=== PATIENT | male | born 1955 | race Caucasian/White ===

== ENCOUNTER 2017-06-05 14:51 | Outpatient (RCR) | payer MEDICARE, OTHER, SELFPAY ==
[2017-06-05 15:46] LABS: Hemoglobin 14.3 g/dl (13.0-16.5); Mean Corpuscular Hgb 30.9 pg (27.0-32.0); Mean Corpuscular Volume 90.7 fL (80-94); Mean Platelet Vol. 10.5 fl (6.2-12.0); Platelet Count 288 K/mm3 (150-450); RBC Distribution Width SD 45.7 fl (35.1-43.9); Red Blood Count 4.63 M/mm3 (4.6-6.2); White Blood Count 20.9 K/mm3 (4.4-11.0)
[2017-06-05 15:51] LABS: Scan Indicated on CBC? Y/N NO
[2017-06-05 16:19] LABS: AST(SGOT) 32 U/L (15-37); Alanine Aminotransfer ALT/SGPT 52 U/L (12-78); Albumin, Serum 4.1 g/dL (3.4-5.0); Alkaline Phosphatase 136 U/L (45-117); Anion Gap 12 (5-15); BUN 57 mg/dL (7-18); BUN/Creat Ratio 32.9 RATIO (10-20); Calcium,Total 9.6 mg/dL (8.5-10.1); Chloride 95 mmol/L (98-107); Creatinine, Serum 1.73 mg/dL (0.70-1.30); EST Glomerular Filtration Rate 43 mL/min (>60); Est Glom Filt Rate - Afr Amer 52 mL/min (>60); Globulin 4.3 g/dL (2.2-4.2); Glucose 97 mg/dL (70-110); Magnesium 2.2 mg/dL (1.6-2.6); Phosphorus 4.6 mg/dL (2.5-4.9); Potassium 5.8 mmol/L (3.5-5.1); Protein, Total 8.4 g/dL (6.4-8.2); Sodium Level 128 mmol/L (136-145)
[2017-06-06 09:01] LABS: Ferritin 104 ng/mL (26-388)
== END 2017-06-21 23:59 ==
LOC: HHLAB 14:51
PROVIDERS: Family Provider Family Medicine; PCP Family Medicine
DX: K91.2 Postsurgical malabsorption, not elsewhere classified (principal); E46 Unspecified protein-calorie malnutrition
CPT/HCPCS: 80053; 82728; 83735; 84100; 85027

== ENCOUNTER 2017-06-12 14:10 | Outpatient (RCR) | payer MEDICARE, OTHER, SELFPAY ==
[2017-06-12 14:26] LABS: Hematocrit 40.2 % (40-54); Hemoglobin 12.9 g/dl (13.0-16.5); Mean Corp Hgb Conc 32.1 g/gl (32-36); Mean Corpuscular Volume 93.5 fL (80-94); Mean Platelet Vol. 9.9 fl (6.2-12.0); Platelet Count 253 K/mm3 (150-450); RBC Distribution Width SD 47.3 fl (35.1-43.9); White Blood Count 11.9 K/mm3 (4.4-11.0)
[2017-06-12 14:36] LABS: Scan Indicated on CBC? Y/N NO
[2017-06-12 14:57] LABS: BUN 39 mg/dL (7-18); Creatinine, Serum 1.39 mg/dL (0.70-1.30); Glucose 99 mg/dL (70-110)
[2017-06-12 14:58] LABS: ALB/GLOB Ratio 0.9 RATIO (0.9-2.4); AST(SGOT) 25 U/L (15-37); Alanine Aminotransfer ALT/SGPT 56 U/L (12-78); Albumin, Serum 3.5 g/dL (3.4-5.0); Alkaline Phosphatase 143 U/L (45-117); Anion Gap 9 (5-15); BUN/Creat Ratio 28.1 RATIO (10-20); Calcium,Total 9.4 mg/dL (8.5-10.1); Chloride 99 mmol/L (98-107); EST Glomerular Filtration Rate 55 mL/min (>60); Est Glom Filt Rate - Afr Amer 67 mL/min (>60); Magnesium 2.3 mg/dL (1.6-2.6); Phosphorus 3.4 mg/dL (2.5-4.9); Protein, Total 7.5 g/dL (6.4-8.2); Sodium Level 135 mmol/L (136-145)
== END 2017-06-21 23:59 ==
LOC: HHLAB 14:10
PROVIDERS: Family Provider Family Medicine; PCP Family Medicine
DX: J44.9 Chronic obstructive pulmonary disease, unspecified (principal); J96.11 Chronic respiratory failure with hypoxia; I10 Essential (primary) hypertension
CPT/HCPCS: 80053; 83735; 84100; 85027

== ENCOUNTER → 2017-06-26 09:46 | Outpatient (CLI) | payer MEDICARE, SELFPAY ==
[2017-06-26 10:06] LABS: Hematocrit 40.8 % (40-54); Hemoglobin 13.3 g/dl (13.0-16.5); Mean Corp Hgb Conc 32.6 g/gl (32-36); Mean Corpuscular Hgb 30.2 pg (27.0-32.0); Mean Corpuscular Volume 92.5 fL (80-94); Mean Platelet Vol. 9.6 fl (6.2-12.0); Platelet Count 234 K/mm3 (150-450); RBC Distribution Width CV 13.9 % (11.6-14.6); Red Blood Count 4.41 M/mm3 (4.6-6.2); Scan Indicated on CBC? Y/N NO; White Blood Count 12.2 K/mm3 (4.4-11.0)
[2017-06-26 10:20] LABS: ALB/GLOB Ratio 0.8 RATIO (0.9-2.4); AST(SGOT) 21 U/L (15-37); Alanine Aminotransfer ALT/SGPT 43 U/L (16-61); Albumin, Serum 3.3 g/dL (3.2-5.0); Alkaline Phosphatase 123 U/L (45-117); Anion Gap 9 (5-15); BUN 47 mg/dL (7-18); BUN/Creat Ratio 34.6 RATIO (10-20); Calcium,Total 8.9 mg/dL (8.5-10.1); Chloride 99 mmol/L (98-107); Creatinine, Serum 1.36 mg/dL (0.70-1.30); EST Glomerular Filtration Rate 57 mL/min (>60); Est Glom Filt Rate - Afr Amer 68 mL/min (>60); Globulin 3.9 g/dL (2.2-4.2); Glucose 98 mg/dL (74-106); Magnesium 2.3 mg/dL (1.6-2.6); Phosphorus 3.7 mg/dL (2.5-4.9); Potassium 5.2 mmol/L (3.5-5.1); Protein, Total 7.2 g/dL (6.4-8.2); Sodium Level 133 mmol/L (136-145)
[2017-06-26 10:44] LABS: Cholesterol 205 mg/dL (200); High Density Lipoprotein 51 mg/dL; Triglycerides 260 mg/dL; Very Low Density Lipoprotein 52 mg/dL (5-40)
== END ==
PROVIDERS: Family Provider Family Medicine; PCP Family Medicine; Visit Provider Family Medicine
DX: J96.11 Chronic respiratory failure with hypoxia (principal); J44.9 Chronic obstructive pulmonary disease, unspecified; I10 Essential (primary) hypertension; E78.5 Hyperlipidemia, unspecified
CPT/HCPCS: 36592; 80053; 80061; 83735; 84100; 85027

== ENCOUNTER → 2017-07-03 09:40 | Outpatient (CLI) | payer MEDICARE, SELFPAY ==
[2017-07-03 10:03] LABS: Absolute Lymphocyte Count 2.11 X10^3/ul (0.83-4.51); Absolute Neutrophil Count 7.4 X10^3/uL (2.0-7.7); Basophil# 0.05 X10^3/uL; Basophil% 0.5 % (0-1); Eosinophil# 0.26 X10^3/uL; Eosinophils% 2.4 % (0-5); Hematocrit 41.7 % (40-54); Hemoglobin 13.4 g/dl (13.0-16.5); Lymphocyte # 2.11 X10^3/ul (4.0); Lymphocyte % 19.4 % (19-41); Mean Corp Hgb Conc 32.1 g/gl (32-36); Mean Corpuscular Hgb 30.1 pg (27.0-32.0); Mean Corpuscular Volume 93.7 fL (80-94); Mean Platelet Vol. 9.6 fl (6.2-12.0); Monocyte# 0.97 X10^3/uL; Monocyte% 8.9 % (0-10); Neutrophil # 7.41 X10^3/uL (2.7-7.7); Neutrophil % 68.2 % (47-70); POSITIVE COUNT NO; POSITIVE DIFFERENTIAL NO; POSITIVE MORPHOLOGY NO; Platelet Count 230 K/mm3 (150-450); RBC Distribution Width CV 14.2 % (11.6-14.6); RBC Distribution Width SD 48.8 fl (35.1-43.9); Red Blood Count 4.45 M/mm3 (4.6-6.2); White Blood Count 10.9 K/mm3 (4.4-11.0)
[2017-07-03 10:55] LABS: ALB/GLOB Ratio 0.9 RATIO (0.9-2.4); AST(SGOT) 23 U/L (15-37); Alanine Aminotransfer ALT/SGPT 46 U/L (16-61); Albumin, Serum 3.3 g/dL (3.2-5.0); Alkaline Phosphatase 113 U/L (45-117); Anion Gap 11 (5-15); BUN 33 mg/dL (7-18); BUN/Creat Ratio 28.4 RATIO (10-20); Calcium,Total 9.1 mg/dL (8.5-10.1); Chloride 105 mmol/L (98-107); Creatinine, Serum 1.16 mg/dL (0.70-1.30); EST Glomerular Filtration Rate 68 mL/min (>60); Est Glom Filt Rate - Afr Amer 82 mL/min (>60); Globulin 3.7 g/dL (2.2-4.2); Glucose 95 mg/dL (74-106); Magnesium 2.1 mg/dL (1.6-2.6); Phosphorus 3.7 mg/dL (2.5-4.9); Potassium 4.6 mmol/L (3.5-5.1); Sodium Level 138 mmol/L (136-145)
== END ==
PROVIDERS: Family Provider Family Medicine; PCP Family Medicine
DX: E87.8 Other disorders of electrolyte and fluid balance, not elsewhere classified (principal); E83.39 Other disorders of phosphorus metabolism; E83.40 Disorders of magnesium metabolism, unspecified; R63.3 Feeding difficulties; Z78.9 Other specified health status; Z91.89 Other specified personal risk factors, not elsewhere classified
CPT/HCPCS: 36592; 80053; 83735; 84100; 85025

== ENCOUNTER → 2017-07-10 10:14 | Outpatient (CLI) | payer MEDICARE, SELFPAY | PROVIDERS: Family Provider Family Medicine; PCP Family Medicine | DX: E87.8 Other disorders of electrolyte and fluid balance, not elsewhere classified (principal); Z78.9 Other specified health status; Z91.89 Other specified personal risk factors, not elsewhere classified; E83.39 Other disorders of phosphorus metabolism; E83.40 Disorders of magnesium metabolism, unspecified; R63.3 Feeding difficulties; K76.9 Liver disease, unspecified; T56.894A Toxic effect of other metals, undetermined, initial encounter; D68.4 Acquired coagulation factor deficiency; R79.82 Elevated C-reactive protein (CRP) | CPT/HCPCS: 99211; G0463 ==

== ENCOUNTER → 2017-07-17 10:20 | Outpatient (CLI) | payer MEDICARE, SELFPAY ==
[2017-07-17 11:05] LABS: Absolute Lymphocyte Count 1.89 X10^3/ul (0.83-4.51); Absolute Neutrophil Count 6.8 X10^3/uL (2.0-7.7); Basophil# 0.08 X10^3/uL; Basophil% 0.8 % (0-1); Eosinophil# 0.24 X10^3/uL; Eosinophils% 2.3 % (0-5); Hematocrit 42.6 % (40-54); Hemoglobin 13.9 g/dl (13.0-16.5); Lymphocyte # 1.89 X10^3/ul (4.0); Lymphocyte % 18.3 % (19-41); Mean Corp Hgb Conc 32.6 g/gl (32-36); Mean Corpuscular Hgb 30.9 pg (27.0-32.0); Mean Corpuscular Volume 94.7 fL (80-94); Mean Platelet Vol. 10.3 fl (6.2-12.0); Monocyte# 1.32 X10^3/uL; Monocyte% 12.8 % (0-10); Neutrophil # 6.77 X10^3/uL (2.7-7.7); Neutrophil % 65.3 % (47-70); Platelet Count 239 K/mm3 (150-450); RBC Distribution Width CV 14.1 % (11.6-14.6); RBC Distribution Width SD 47.4 fl (35.1-43.9); White Blood Count 10.4 K/mm3 (4.4-11.0)
[2017-07-17 11:07] LABS: POSITIVE COUNT NO; POSITIVE DIFFERENTIAL NO; POSITIVE MORPHOLOGY NO
[2017-07-17 11:39] LABS: ALB/GLOB Ratio 0.8 RATIO (0.9-2.4); AST(SGOT) 21 U/L (15-37); Alanine Aminotransfer ALT/SGPT 48 U/L (16-61); Albumin, Serum 3.2 g/dL (3.2-5.0); Alkaline Phosphatase 123 U/L (45-117); Anion Gap 8 (5-15); BUN 35 mg/dL (7-18); BUN/Creat Ratio 27.3 RATIO (10-20); Calcium,Total 8.7 mg/dL (8.5-10.1); Chloride 108 mmol/L (98-107); Creatinine, Serum 1.28 mg/dL (0.70-1.30); EST Glomerular Filtration Rate 61 mL/min (>60); Est Glom Filt Rate - Afr Amer 73 mL/min (>60); Globulin 3.8 g/dL (2.2-4.2); Glucose 101 mg/dL (74-106); Magnesium 2.2 mg/dL (1.6-2.6); Phosphorus 3.9 mg/dL (2.5-4.9); Potassium 4.6 mmol/L (3.5-5.1); Sodium Level 141 mmol/L (136-145)
[2017-07-17 11:57] LABS: Rubella IgG > 500.0 IU/mL; Vitamin B12 715 pg/mL (211-911)
[2017-07-20 13:49] LABS: Mumps Antibody,IgG > 300.0 AU/mL (Immune >10.9); Rubeola IgG Ab < 25.0 AU/mL (Immune >29.9); Vitamin B1, Thiamine 288.7 nmol/L (66.5-200.0)
== END ==
PROVIDERS: Family Provider Family Medicine; PCP Family Medicine
DX: J96.11 Chronic respiratory failure with hypoxia (principal); J44.9 Chronic obstructive pulmonary disease, unspecified; I10 Essential (primary) hypertension; E87.8 Other disorders of electrolyte and fluid balance, not elsewhere classified; E83.39 Other disorders of phosphorus metabolism; E83.40 Disorders of magnesium metabolism, unspecified; K76.9 Liver disease, unspecified; T56.894A Toxic effect of other metals, undetermined, initial encounter; D68.4 Acquired coagulation factor deficiency; R63.3 Feeding difficulties; R79.82 Elevated C-reactive protein (CRP); Z78.9 Other specified health status; Z91.89 Other specified personal risk factors, not elsewhere classified
CPT/HCPCS: 36592; 80053; 82306; 82607; 83735; 84100; 84425; 85025; 86735; 86762; 86765

== ENCOUNTER 2017-07-19 09:30 | Outpatient (RCR) | payer MEDICARE, SELFPAY ==
--- NOTE | 2017-07-12 12:53 | PR.DATECOV_ITS ---
Dates of Coverage Times for Dates Of Coverage; All dates of coverage are for physician supervision /medical transport specialist for during the times of 08:00 AM through 4:30 PM. Effective Jan 20, 2013 our hours will be changing to 8:00 to 4:30 on Monday, Monday and Monday. First Date of the Month: 07/12/17 Last Date of the Month: 07/19/17
--- NOTE | 2017-07-12 12:53 | PCM.PR.HP ---
History of Present Illness Arrival date:: 07/12/17 Arrival time:: 12:53 Date of Evaluation: 07/12/17 Referring Physician: Dr. Shahzad Simons Primary Diagnosis: Advanced Stage COPD. History of Present Illness: The liane is a 61 yr old male patient under the care of Dr. Shahzad Simons and Erin Ortiz at the [facility] here at [facility]. The patient has been using a trilogy noninvasive ventilator at and has been doing well with this new system. He states he wears it nightly 4-6 hours. mMRC Breathless Scale: When is the patient short of breath? Y/N Grade: Description of Breathlessness: 0 I only get breathless with strenuous exercise. 1 I get short of breath when hurrying on level ground or walking up a slight hill. 2 On level ground, I walk slower than people of the same age because of breathless, or have to stop for breath when walking at my own pace. 3 I stop for breath after walking 100 yards or after a few minutes on level ground. 4 I am too breathless to leave the house or I am breathless when dressing. Respiratory Problems: Yes: Retain Secretions - Secretions Normal Color:: pale white/clear usually Cough:: Yes AM: Yes Sleep Disorder Evaluation: No prior history of sleep apnea patient is aware of. EPWORTH SLEEPINESS SCALE 0 = NO chance of dozing 2 = MODERATE chance of dozing 1 = SLIGHT chance of dozing 3 = HIGH chance of dozing : SITUATION: CHANCE OF DOZING: Sitting and Reading Watching TV Sitting inactive in a public place (i.e. Movies) As a passenger in a car for an hour without a break Lying down to rest in the afternoon when permitted Sitting and talking to someone Sitting quietly after lunch without alcohol In a car, while stopped for a few minutes in traffic Total Total Equals: 1-6 = Adequate Sleep 7-8 = Average > 9 = Sleep Study/Consult Indicated Past Medical History Past Medical History: Diabetes - Type II controlled; patient states he is not Diabetic and was a result of medication., Hypoxia, - - chronic dysphagia, chronic narcotic dependence, history of total colectomy, Ileostomy, ulcerative colitis, bowel obstruction. Psychiatric History: anxiety Surgical History: - - bowelk obstruction surgery (resolved), H/O hernia repair. Additional Family History: Mother h/o COPD. - Social History Marital Status: Assistive Devices:: none Fall history:: no Other potential problems:: none Employment:: Disabilty Smoking Status: Former smoker Quit Smoking Since: 2014 Packs per day: 1 Years Smoked: 45 - Living Arrangement Patient lives with other person(s) in the home:: AROUND THE CLOCK If assistance is needed at home, what is needed?: none - Current/ Previous Services [facility] Home Health:: No Other Home Health:: No [facility]'s Cardiac Rehab:: No Life (Palliative) Care Services:: No Tobacco Use & Smoking Cessation:: No Pulmonary Rehab:: No Social History - Smoking History Smoking Status: Former smoker - Tobacco dependence in remission Years Smokin Packs Smoked per Day: 1 Hx Smoking Cessation Date: 2014 Hx Tobacco Use: Yes Hx Smoking Exposure: No - Alcohol Use Alcohol Usage: Yes - occasionally - Substance Abuse Hx Substance Use: Yes - marijuana use - Hobbies, Recreation, Social Activities Hobbies: Other - Traveling Recreational Activities: I am able to engage in a few activities Medications & Vaccination Info Home Medications: Ambulatory Orders Albuterol Inhaler [Ventolin Hfa] 2 puff INHALATION Q4H PRN PRN 01/25/17 Cyanocobalamin [Vitamin B12] 1,000 mcg SC Q30D 01/25/17 Ergocalciferol [Vitamin D] 50,000 unit PO MO 01/25/17 Ferrous Sulfate 325 mg PO DAILY@0800 01/25/17 Folic Acid 1 mg PO DAILY@0800 01/25/17 Loperamide [Imodium] 2 mg PO ACHS 01/25/17 Diphenoxylate HCl/Atropine [Diphenoxylate-Atrop 2.5-0.025] 2 ea PO 4X/DAY 04/25/17 Hydrocodone/Acetaminophen [[place] 7.5-325 Tablet] 1 tab PO 4X/DAY PRN 04/25/17 Naproxen 250 mg PO BID PRN 04/25/17 Albuterol Aerosols [Ventolin Aerosols] 2.5 mg INHALATION Q2H PRN PRN #1 box 04/27/17 Guaifenesin [Mucinex] 600 mg PO BID PRN #20 tab 04/27/17 Nebulizer [Lc Plus] 1 ea UD #1 ea 04/27/17 fluticasone 100 mcg-umeclid 62.5 mcg-vilant 25 mcg powd for inhalation 1 inh INHALATION QDAY #60 ea 06/05/17 Number of hospital visits in the last year?: - April 2017 Reason for hospital visits: RESP INF-PNUEM,BRONCHITIS, OTHER RESP PROBLEMS Number of emergency room visits in the last year?: 1 Reason for ER visit, with or without admission: RESP INF-PNEUM,BRONCHITIS, OTHER RESP PROBLEMS Do you see your physician on a regular schedule?: Yes How often?: Just started with Dr. Simons 3 to 6 months, annual Has adequate access & meets healthcare needs?: Yes - Drug Regimen Review Indication of potential clinical significant med issues (drug reactions, ineffective therapy, side effects, interactions, duplicate therapy, omissions, dose errors, or non-compliance)?: No problems found during review Was a physician or the physican designee contacted within one calendar day to resolve clinically significant medication issues, including reconcilitation?: No Review of Systems Constitutional: Denies: Chills, Fever, Weight Change HEENT: Reports: Nasal bleeding - rare, Nasal Congestion. Denies: Head Aches, Sinus Congestion, Sinus Drainage Cardiovascular: Denies: Chest Pain, Palpitations Respiratory: Denies: Cough, Shortness of breath at rest, Sputum production Musculoskeletal: Reports: - - Bad left hip needs replaced but unable to do surgery due to medical condition.. Denies: Joint Pain, Joint Tenderness Skin: Denies: Rash, Wounds Neurological: Reports: Blurred vision, Double vision. Denies: Focal weakness, Numbness, Tingling Psychiatric: Denies: Anxiety, Depression, Homicidal Ideations, Suicidal Ideations Advanced Directives - Advanced Directives Power of Shape Brick Molder: Yes Living Will: Yes Advance Directives Information Provided: No Advance Directives on File: Yes Coping/Social Support/Other - Abuse and Neglect Do you feel safe in your surroundings?:: YES Are there sign/symptoms of abuse?: No Has anyone physically or mentally abused you?: No Has anyone threatened to harm you in any way?: No Been asked to sign a document that you don't understand?: No - Exacerbation History Number of Exacerbations in a year:: 10 - respiratory related in someway Recent exposure to illness?: No Known carrier?: No Antibiotic Taken:: Yes I know I have an infection when:: change is color of mucus, frequency of cough, and congestion in chest. - Nutrition Risk Factor Are you on a special diet?: No Diff. chewing/swallowing:: No Have you had a change in your weight?: No Physical Exam - Vital Signs Temperature: 97.4 F Pulse Rate: 103 Respiratory Rate: 18 Pulse Ox at rest: 95 - room air Blood Pressure: 126/80 Nailbeds:: pink Height: 5 ft 10 in Weight:: 68.946 kg Weight Source: Standing Scale Body Mass Index (BMI): 21.8 - Physical Exam General: Alert, Oriented x3, Cooperative Neck: Supple, No JVD, Negative Carotid Bruits, Negative Hepatojugular Reflux Lungs: Clear to auscultation, Normal air movement, No wheeze Cardiovascular: Regular rate, Regular Rhythm, No murmurs Extremities: No clubbing, No cyanosis, No edema, Capillary Refill Less than 3 Seconds Musculoskeletal: No Tenderness to Palpation of Joints or Extremities Psych/Mental Status: Normal Affect, Appropriate - Pain Is Patient Pain Free?: No Pain Location: chest, other - left hip Pain Level: 10/29 - Hearing/Speech/Vision/Spiritual Cultural/Buddhist Needs that may affect Treatment Plan: No Do you have any Spiritual/Emotional needs of which our Building Certifier Ministry could be of assistance?: No Building Certifier to contact Place of Caodaism?: No Primary Language: Occitan Preferred Language: Occitan Right Hearing Abillity: Normal Visual Difficulty: Near Sighted - Motivation to Participate On a scale of 1 to 10, how prepared are you to commit to attending pulmonary rehabilitation?: 10 What do you see as barriers to successfully being able to complete the program?: the unknown of what I'm getting myself into What do you see as the benefits of succesfully completing the program? In other words, what do you hope to get out of participating in the program?: improved health Are there issues you are dealing with that will interfere with completing the program?: nothing today Do you have a spouse or signficant other, family or friends who will help support you to complete the program?: yes, son and friends Diagnostic Data Review - Lab Results Hematology/Chemistry: N/A - Diagnostic and Imaging Results CXR:: see [facility] EHR - 6 Minute Walk Test 6 Minute Walk Test: See [facility] - Cardiovascular Studies Echocardiogram: See [facility] EHR - Pulmonary Function Test FEV1:: 1.20 FVC:: 3.17 FEV1/FVC%:: 38 Gold Classification: Gold class IV(very severe COPD)with FEV1/FVC <70, FEV1 <30% predicted Functioning ADL/IADL - Functional Capacity ADL/IADL GROOMING: Current ability to tend safely to personal hygiene needs (i.e., washing face/hands, hair care, shaving or make up, teeth or denture care, fingernail care).: Able to groom self unaided, w/ or w/o the use of assistive devices. Current ABILITY TO DRESS UPPER BODY safely (with or w/out dressing aids) including undergarments, pullovers, front-opening shirts & blouses, managing zippers, buttons, & snaps:: Gets clothes out, puts on, and removes from upper body w/o assist. Current ABILITY TO DRESS LOWER BODY safely (with or w/out dressing aids) including undergarments, slacks, socks or nylons, shoes:: Able to obtain, put on, & remove clothing and shoes w/out assistance. Bathing: Current ability to wash entire body safely. EXCLUDES grooming (washing face, washing hands and shampooing hair): Bathes self in shower/tub independently, incl getting in & out TOILET TRANSFERRING: Current ability to get to & from the toilet/BSC safely and transfer on & off toilet/commode.: Gets to & from toilet, transfers independently w/ or w/o a device. TOILETING HYGIENE: Current ability to maintain perineal hygiene safely, adjust clothes and/or incontinence pads before & after using toilet, commode, bedpan, urinal. If managing ostomy, includes cleaning: Manages toileting hygiene & clothing management w/out assist TRANSFERRING: Current ability to move safely from bed to chair, or ability to turn and position self in bed if patient is bedfast.: Able to independently transfer. AMBULATION/LOCOMOTION: Current ability to walk safely, once in a standing position, or use wheelchair, once in a seated position, on a variety of surfaces.: Able to IND walk on even/uneven surface&use stairs with or w/o railing FEEDING or EATING: Current ability to feed self meals and snacks safely. NOTE: This refers only to the process of eating, chewing and swallowing, not preparing the food to be eaten.: Able to independently fee ABILITY TO PLAN AND PREPARE MEALS: (e.g., cereal, sandwich) or reheat delivered meals safely.: IND prepare light meals/reheat delvrd meals/Or can but hasn't done so. ABILITY TO USE TELEPHONE: Current ability to answer the phone safely, including dialing numbers, and effectively using the telephone to communicate.: Able to dial numbers and answer calls appropriately and as desired. - Pt Functioning Prior to Problem Self-Care (e.g.,grooming, dressing, & bathing): INDEPENDENT Ambulation: INDEPENDENT Transfer: INDEPENDENT Household tasks (e.g., light meal prep, laundry, shopping): INDEPENDENT
--- NOTE | 2017-07-12 13:03 | PR.HP_ITS ---
History of Present Illness Arrival date:: 07/12/17 Arrival time:: 12:53 Date of Evaluation: 07/12/17 Referring Physician: Dr. Shahzad Simons Primary Diagnosis: Advanced Stage COPD. History of Present Illness: The liane is a 61 yr old male patient under the care of Dr. Shahzad Simons and Erin Ortiz at the [facility] here at [facility]. The patient has been using a trilogy noninvasive ventilator at and has been doing well with this new system. He states he wears it nightly 4-6 hours. mMRC Breathless Scale: When is the patient short of breath? Y/N Grade: Description of Breathlessness: 0 I only get breathless with strenuous exercise. 1 I get short of breath when hurrying on level ground or walking up a slight hill. 2 On level ground, I walk slower than people of the same age because of breathless, or have to stop for breath when walking at my own pace. 3 I stop for breath after walking 100 yards or after a few minutes on level ground. 4 I am too breathless to leave the house or I am breathless when dressing. Respiratory Problems: Yes: Retain Secretions - Secretions Normal Color:: pale white/clear usually Cough:: Yes AM: Yes Sleep Disorder Evaluation: No prior history of sleep apnea patient is aware of. EPWORTH SLEEPINESS SCALE 0 = NO chance of dozing 2 = MODERATE chance of dozing 1 = SLIGHT chance of dozing 3 = HIGH chance of dozing : SITUATION: CHANCE OF DOZING: Sitting and Reading Watching TV Sitting inactive in a public place (i.e. Movies) As a passenger in a car for an hour without a break Lying down to rest in the afternoon when permitted Sitting and talking to someone Sitting quietly after lunch without alcohol In a car, while stopped for a few minutes in traffic Total Total Equals: 1-6 = Adequate Sleep 7-8 = Average > 9 = Sleep Study/Consult Indicated Past Medical History Past Medical History: Diabetes - Type II controlled; patient states he is not Diabetic and was a result of medication., Hypoxia, - - chronic dysphagia, chronic narcotic dependence, history of total colectomy, Ileostomy, ulcerative colitis, bowel obstruction. Psychiatric History: anxiety Surgical History: - - bowelk obstruction surgery (resolved), H/O hernia repair. Additional Family History: Mother h/o COPD. - Social History Marital Status: Assistive Devices:: none Fall history:: no Other potential problems:: none Employment:: Disabilty Smoking Status: Former smoker Quit Smoking Since: 2014 Packs per day: 1 Years Smoked: 45 - Living Arrangement Patient lives with other person(s) in the home:: AROUND THE CLOCK If assistance is needed at home, what is needed?: none - Current/ Previous Services [facility] Home Health:: No Other Home Health:: No [facility]'s Cardiac Rehab:: No Life (Palliative) Care Services:: No Tobacco Use & Smoking Cessation:: No Pulmonary Rehab:: No Social History - Smoking History Smoking Status: Former smoker - Tobacco dependence in remission Years Smokin Packs Smoked per Day: 1 Hx Smoking Cessation Date: 2014 Hx Tobacco Use: Yes Hx Smoking Exposure: No - Alcohol Use Alcohol Usage: Yes - occasionally - Substance Abuse Hx Substance Use: Yes - marijuana use - Hobbies, Recreation, Social Activities Hobbies: Other - Traveling Recreational Activities: I am able to engage in a few activities Medications & Vaccination Info Home Medications: Ambulatory Orders Albuterol Inhaler [Ventolin Hfa] 2 puff INHALATION Q4H PRN PRN 01/25/17 Cyanocobalamin [Vitamin B12] 1,000 mcg SC Q30D 01/25/17 Ergocalciferol [Vitamin D] 50,000 unit PO MO 01/25/17 Ferrous Sulfate 325 mg PO DAILY@0800 01/25/17 Folic Acid 1 mg PO DAILY@0800 01/25/17 Loperamide [Imodium] 2 mg PO ACHS 01/25/17 Diphenoxylate HCl/Atropine [Diphenoxylate-Atrop 2.5-0.025] 2 ea PO 4X/DAY Hydrocodone/Acetaminophen [[place] 7.5-325 Tablet] 1 tab PO 4X/DAY PRN 04/25/17 Naproxen 250 mg PO BID PRN 04/25/17 Albuterol Aerosols [Ventolin Aerosols] 2.5 mg INHALATION Q2H PRN PRN #1 box 12/05 Guaifenesin [Mucinex] 600 mg PO BID PRN #20 tab 04/27/17 Nebulizer [Lc Plus] 1 ea UD #1 ea 04/27/17 fluticasone 100 mcg-umeclid 62.5 mcg-vilant 25 mcg powd for inhalation 1 inh INHALATION QDAY #60 ea 06/05/17 Number of hospital visits in the last year?: - April 2017 Reason for hospital visits: RESP INF-PNUEM,BRONCHITIS, OTHER RESP PROBLEMS Number of emergency room visits in the last year?: 1 Reason for ER visit, with or without admission: RESP INF-PNEUM,BRONCHITIS, OTHER RESP PROBLEMS Do you see your physician on a regular schedule?: Yes How often?: Just started with Dr. Simons 3 to 6 months, annual Has adequate access & meets healthcare needs?: Yes - Drug Regimen Review Indication of potential clinical significant med issues (drug reactions, ineffective therapy, side effects, interactions, duplicate therapy, omissions, dose errors, or non-compliance)?: No problems found during review Was a physician or the physican designee contacted within one calendar day to resolve clinically significant medication issues, including reconcilitation?: No Review of Systems Constitutional: Denies: Chills, Fever, Weight Change HEENT: Reports: Nasal bleeding - rare, Nasal Congestion. Denies: Head Aches, Sinus Congestion, Sinus Drainage Cardiovascular: Denies: Chest Pain, Palpitations Respiratory: Denies: Cough, Shortness of breath at rest, Sputum production Musculoskeletal: Reports: - - Bad left hip needs replaced but unable to do surgery due to medical condition.. Denies: Joint Pain, Joint Tenderness Skin: Denies: Rash, Wounds Neurological: Reports: Blurred vision, Double vision. Denies: Focal weakness, Numbness, Tingling Psychiatric: Denies: Anxiety, Depression, Homicidal Ideations, Suicidal Ideations Advanced Directives - Advanced Directives Power of Fisheries Biologist: Yes Living Will: Yes Advance Directives Information Provided: No Advance Directives on File: Yes Coping/Social Support/Other - Abuse and Neglect Do you feel safe in your surroundings?:: YES Are there sign/symptoms of abuse?: No Has anyone physically or mentally abused you?: No Has anyone threatened to harm you in any way?: No Been asked to sign a document that you don't understand?: No - Exacerbation History Number of Exacerbations in a year:: 10 - respiratory related in someway Recent exposure to illness?: No Known carrier?: No Antibiotic Taken:: Yes I know I have an infection when:: change is color of mucus, frequency of cough, and congestion in chest. - Nutrition Risk Factor Are you on a special diet?: No Diff. chewing/swallowing:: No Have you had a change in your weight?: No Physical Exam - Vital Signs Temperature: 97.4 F Pulse Rate: 103 Respiratory Rate: 18 Pulse Ox at rest: 95 - room air Blood Pressure: 126/80 Nailbeds:: pink Height: 5 ft 10 in Weight:: 68.946 kg Weight Source: Standing Scale Body Mass Index (BMI): 21.8 - Physical Exam General: Alert, Oriented x3, Cooperative Neck: Supple, No JVD, Negative Carotid Bruits, Negative Hepatojugular Reflux Lungs: Clear to auscultation, Normal air movement, No wheeze Cardiovascular: Regular rate, Regular Rhythm, No murmurs Extremities: No clubbing, No cyanosis, No edema, Capillary Refill Less than 3 Seconds Musculoskeletal: No Tenderness to Palpation of Joints or Extremities Psych/Mental Status: Normal Affect, Appropriate - Pain Is Patient Pain Free?: No Pain Location: chest, other - left hip Pain Level: 10/29 - Hearing/Speech/Vision/Spiritual Cultural/Holiness Needs that may affect Treatment Plan: No Do you have any Spiritual/Emotional needs of which our Chief Digital Media Officer Ministry could be of assistance?: No Chief Digital Media Officer to contact Place of Jewish?: No Primary Language: Albanian Preferred Language: Albanian Right Hearing Abillity: Normal Visual Difficulty: Near Sighted - Motivation to Participate On a scale of 1 to 10, how prepared are you to commit to attending pulmonary rehabilitation?: 10 What do you see as barriers to successfully being able to complete the program? : the unknown of what I'm getting myself into What do you see as the benefits of succesfully completing the program? In other words, what do you hope to get out of participating in the program?: improved health Are there issues you are dealing with that will interfere with completing the program?: nothing today Do you have a spouse or signficant other, family or friends who will help support you to complete the program?: yes, son and friends Diagnostic Data Review - Lab Results Hematology/Chemistry: N/A - Diagnostic and Imaging Results CXR:: see [facility] EHR - 6 Minute Walk Test 6 Minute Walk Test: See [facility] - Cardiovascular Studies Echocardiogram: See [facility] EHR - Pulmonary Function Test FEV1:: 1.20 FVC:: 3.17 FEV1/FVC%:: 38 Gold Classification: Gold class IV(very severe COPD)with FEV1/FVC <70, FEV1 <30 % predicted Functioning ADL/IADL - Functional Capacity ADL/IADL GROOMING: Current ability to tend safely to personal hygiene needs (i.e., washing face/hands, hair care, shaving or make up, teeth or denture care, fingernail care).: Able to groom self unaided, w/ or w/o the use of assistive devices. Current ABILITY TO DRESS UPPER BODY safely (with or w/out dressing aids) including undergarments, pullovers, front-opening shirts & blouses, managing zippers, buttons, & snaps:: Gets clothes out, puts on, and removes from upper body w/o assist. Current ABILITY TO DRESS LOWER BODY safely (with or w/out dressing aids) including undergarments, slacks, socks or nylons, shoes:: Able to obtain, put on , & remove clothing and shoes w/out assistance. Bathing: Current ability to wash entire body safely. EXCLUDES grooming (washing face, washing hands and shampooing hair): Bathes self in shower/tub independently, incl getting in & out TOILET TRANSFERRING: Current ability to get to & from the toilet/BSC safely and transfer on & off toilet/commode.: Gets to & from toilet, transfers independently w/ or w/o a device. TOILETING HYGIENE: Current ability to maintain perineal hygiene safely, adjust clothes and/or incontinence pads before & after using toilet, commode, bedpan, urinal. If managing ostomy, includes cleaning: Manages toileting hygiene & clothing management w/out assist TRANSFERRING: Current ability to move safely from bed to chair, or ability to turn and position self in bed if patient is bedfast.: Able to independently transfer. AMBULATION/LOCOMOTION: Current ability to walk safely, once in a standing position, or use wheelchair, once in a seated position, on a variety of surfaces.: Able to IND walk on even/uneven surface&use stairs with or w/o railing FEEDING or EATING: Current ability to feed self meals and snacks safely. NOTE: This refers only to the process of eating, chewing and swallowing, not preparing the food to be eaten.: Able to independently fee ABILITY TO PLAN AND PREPARE MEALS: (e.g., cereal, sandwich) or reheat delivered meals safely.: IND prepare light meals/reheat delvrd meals/Or can but hasn't done so. ABILITY TO USE TELEPHONE: Current ability to answer the phone safely, including dialing numbers, and effectively using the telephone to communicate.: Able to dial numbers and answer calls appropriately and as desired. - Pt Functioning Prior to Problem Self-Care (e.g.,grooming, dressing, & bathing): INDEPENDENT Ambulation: INDEPENDENT Transfer: INDEPENDENT Household tasks (e.g., light meal prep, laundry, shopping): INDEPENDENT
--- NOTE | 2017-07-12 13:09 | PR.ITP_ITS ---
General Information - General Information Admitting Diagnosis: Acute Advanced Stage COPD Gold Classification:: GOLD 4: Very Severe - PFT FEV1:: 1.20 FVC:: 3.17 FEV1/FVC%:: 38 - Education/Goals Barriers to Learning: Vision Impairment Individual Counseling: Initial Assessment: Dyspnea control techniques at rest, activity, and ADLs, Inhaled and respiratory medications, Exacerbation prevention & management, Safe travel, Advanced directives Patient Goals: Breathe better: Initial Assessment, Increase endurance/stamina: Initial Assessment, Return to recreation/hobby: Initial Assessment, Improve diet and nutrition: Initial Assessment, Symptom management: Initial Assessment Exercise - Initial Assessment - Visit Date of Eval: 07/12/17 - Established ITP initial visit - Problem/Goals Problems: No regular exercise, Knowledge deficit exercise guidelines, Knowledge deficit exercise safety - Exercise Prescription Frequency (x/week): 3 Duration:: 30 MET LEVEL:: 2 HR (bpm):: 118 - 110-118 Max THRR - Plan Plan and Plan to Review:: Benefits of exercise, Core components of exercise, How to measure dyspnea level, How to monitor dyspnea level, Exercise intensity, Exercise safety guideline, Home exercise guidelines, Sandrine: 3-4/11-13 Disease Management - Initial - Problems/Goals-Hypoxemia Hypoxemia Problems:: Hypoxemia - Problems/Goals-Medications Medication Goals: Adherence to prescribed medications, Correct technique/timing & care of MDI, DPI, nebulizer, and spacer. - Problems/Goals-Bronchial Hygiene Bronchial Hygiene Problems:: Ineffective secretion clearance, Respiratory infection Prevention/Management Bronchial Hygiene Goals:: Pt demonstrates effective cough, effective secretion clearance., Pt describes signs and symptoms of infection. - Initial Assessment SpO2:: 97 Does pt report taking home meds as prescribed?: Yes Medications: Yes MDI, Yes NEB, No Spacer Patient Reports:: Non-productive cough, Prod cough with infection - Plans Hypoxemia Plan:: Monitor SpO2 rest & with exercise, Train appropriate O2 use at rest, Train appropriate O2 use with exercise, Train O2 safety & systems Reviewed prescribed medications:: Purpose, Schedule, Side effects, Importance of compliance Instruct correct technique/timing & care:: MDI, DPI, Nebulizer, Return demo use of inhaler Bronchial Hygiene Plan: Controlled cough, Vibratory PEP device, Hydration, Hand hygiene, When to call MD, Signs/symptoms to report:, Influenza/Pneumovax vaccines Psychosocial - Initial Assess - Problems/Goals Problems: Impaired Q.O.L. Psychosocial Goals: Improved Q.O.L. - Psychosocial Test Depression:: Anxiety, Impaired QOL - Plan Instructions given regarding:: Benefits of exercise, Relaxation techniques, Training in coping strategies Stress management: Recommended follow-up with MD for considered of Rx Tobacco - Initial Assessment - Program Goals Tobacco Program Goals: Complete smoking cessation. Attend education classes. Improve Knowledge Test score - Stage of Change Stages of Change:: Action - Learning Barriers Learning Barriers: Vision, Ready to Learn - Tobacco Use Tobacco Use: Non-smoker - Intervention Education Schedule Given:: Yes - Education Gave Education Materials For:: Tobacco Triggers, Pulmonary Disease, Risk Factors , Breathing Techniques, Medical Compliance, Pulmonary A&P, Exacerbation Signs & Symptoms, Stress & Relaxation Nutrition/Wt Mgmt - Initial - Problems/Goals Problems: Underweight Goals: BMI 21-25, Wt Loss 1-2 lbs per week - Weight Management Admit Height:: 5 ft 10 in Admit Weight:: 68.993 kg Admit BMI:: 21.8 - Diabetes Diabetes:: No Insulin: No Do you monitor your blood sugar at home?: No - Intervention Referral to dietitian:: No Referral to Diabetic Clinic:: No Will attend diet classes:: Yes - Plan Nutrition Plan: Yes Nutrition education class:, Yes Medication education class [ Prednisone]: Patient Health Questionnaire Initial Assessment 1. Little interest or pleasure in doing things: Nearly every day 2. Feeling down, depressed, or hopeless: More than half the days 3. Trouble falling or staying asleep, or sleeping too much: More than half the days 4. Feeling tired or having little energy: Several days 5. Poor appetite or overeating: Nearly every day 6. Feeling bad about yourself -- or that you are a failure or have let yourself or your family down: Not at all 7. Trouble concentrating on things, such as reading the newspaper or watching television: Not at all 8. Moving or speaking so slowly that other people could have noticed. Or the opposite - being so fidgety or restless that you have been moving around a lot more than usual: Not at all 9. Thoughts that you would be better off , or of hurting yourself in some way: Not at all How difficult have these problems made it for you to do your work, take care of things at home, or get along with other people?: Somewhat difficult Total Score: 11 COPD Knowledge Test Initial COPD is a lung disease that:: Makes it hard to breathe & gets worse over time In the [place] the term COPD describes 2 main lung conditions:: Emphysema & chronic bronchitis The most common lung irritant that causes COPD is:: Cigarette smoke Common signs and symptoms of COPD include:: An ongoing cough/cough that produces a large amount of mucus, & SOB If you have COPD, what steps can you take?: All of the above Swelling of the ankles is common in COPD:: False Fatigue [tiredness] is common in COPD:: False Wheezing is common in COPD:: True Crushing chest pain is common in COPD:: False Rapid weight loss is common in COPD:: False Breathlessness is a normal response to exercise: True Exercise should be avoided if it makes you short of breath: False All bronchodilators act within 10 minutes: False A spacer device increases the medication to the lungs: True Annual flu vaccine is recommended for pts w/lung disease: True COPD Knowledge Test Total Score:: 14 COPD Assessment Test [CAT] - Questions Never cough = 0, Cough all the time = 5: 1 No phlegm = 0, Chest full of phlegm = 5: 3 No chest tightness = 0, Chest very tight = 5: 1 No breathless w/exertion = 0, Very breathless w/exertion = 5: 5 No limitations w/activity = 0, Very limited w/activity = 5: 5 Confident leaving home = 0, Not at all confident = 5: 4 Sleep soundly = 0, Don't sleep soundly = 5: 3 Lots of energy = 0, No energy at all = 5: 4 Total CAT score:: 26 Self-Efficacy Initial Assessment We would like to know how confident you are in doing certain activities. Please select your confidence level for:: Select your confidence level for the following using the scale 1-10 where 1 is not at all confident and 10 is totally confident. Your score is the average of all 6 responses. Fatigue: How confident are you that you can keep the fatigue caused by your disease from interfering with the things you want to do? Select Number: 3 Physical Discomfort or Pain: How confident are you that you can keep the physical discomfort or pain of your disease from interfering with the things you want to do? Select Number: 2 Emotional Distress: How confident are you that you can keep the emotional distress caused by your disease from interfering with the things you want to do? Select Number: 4 Other Symptoms or Health Problems: How confident are you that you can keep other symptoms or health problems from interfering with the things you want to do? Select Number: 9 Different Tasks and Activities: How confident are you that you can do the different tasks and activities needed to manage your health condition so as to reduce your need to see a doctor? Select Number: 8 Medication: How confident are you that you can do things other than just taking medication to reduce how much your illness affects your everyday life? Select Number: 8 Total Score:: 5 Nutrition Survey - Nutrition Survey Instructions Scoring Instructions: Scoring is as follows: Yes = 1 points. No = 0 point. Patient score that is >/=12 is considered to be at potential nutritional risk and could benefit from a referral to a registered dietitian. - Nutrition Survey Initial Have you lost >10 lbs over the past 2 months without trying?: No Are you following a special diet at home for diabetes, low fat, or low salt?: No Are you interested in meeting with a dietitian for help understanding your diet? : No Do you eat less than 3 meals a day?: Yes Do you eat fatty meats (sung, sausage, ribs, etc), fried foods, desserts, large amounts of salad dressings, margarine, butter, or cheese most days?: No Do you have food allergies? [Enter types in comment field]: No Do you eat in restaurants more than 3 times a week?: Yes Do you season food with salt, seasoning salt, or garlic salt?: Yes Do you used canned, boxed, frozen meals, or soups, seasoning packets?: No Total Score:: 3
[2017-07-12 13:32] VITALS: BP 126/80; PULSE 103; RESP 18; TEMP 36.3; O2SAT 95; BMI 21.8
[2017-07-12 13:36] VITALS: O2SAT 97; BMI 21.8
== END 2017-07-19 23:59 ==
LOC: PR 09:30
PROVIDERS: Family Provider Family Medicine; PCP Family Medicine; Visit Provider Internal Medicine Critical Care Medicine
DX: J44.9 Chronic obstructive pulmonary disease, unspecified (principal)
CPT/HCPCS: 97150; G0424

== ENCOUNTER → 2017-07-24 11:09 | Outpatient (CLI) | payer MEDICARE, SELFPAY | PROVIDERS: Family Provider Family Medicine; PCP Family Medicine | DX: E87.8 Other disorders of electrolyte and fluid balance, not elsewhere classified (principal); Z78.9 Other specified health status; Z91.89 Other specified personal risk factors, not elsewhere classified; E83.39 Other disorders of phosphorus metabolism; E83.40 Disorders of magnesium metabolism, unspecified; R63.3 Feeding difficulties; K76.9 Liver disease, unspecified; T56.894A Toxic effect of other metals, undetermined, initial encounter; D68.4 Acquired coagulation factor deficiency; R79.82 Elevated C-reactive protein (CRP) | CPT/HCPCS: 99211; G0463 ==

== ENCOUNTER → 2017-07-31 11:04 | Outpatient (CLI) | payer MEDICARE, SELFPAY ==
--- NOTE | 2017-07-31 11:36 | RAD_ITS ---
STUDY: X-RAY CHEST REASON FOR EXAM: Male, 61 years old. Increasing shortness of breath. TECHNIQUE: PA and lateral views of the chest. COMPARISON: Comparison is made with prior study dated May 19, 2017. FINDINGS: A right sided central venous catheter is seen. The tip is at the junction of the superior vena cava and right atrium. Hyperinflation. Mild increased linear markings at the left lung base. This is suggestive of atelectasis. Blunting of the left costophrenic angle. Normal size heart. Normal mediastinum and susan. Normal visualized pulmonary arteries. There is atherosclerotic tortuosity of the aortic arch and descending thoracic aorta. There are diffuse degenerative changes of the visualized thoracic spine. Old healed left distal clavicular fracture. There is no demonstrated abnormality of the visualized soft tissue structures of the upper abdomen. RAD/Chest PA and Lateral IMPRESSION: Hyperinflation. Mild increased markings at the left lung base suggestive of atelectasis with blunting of the left costophrenic angle. Electronically Signed: Dimitris Hagen MD at 15:25 EDT Tel [phone], Service support ,
[2017-07-31 11:42] LABS: Absolute Lymphocyte Count 0.88 X10^3/ul (0.83-4.51); Absolute Neutrophil Count 13.1 X10^3/uL (2.0-7.7); Basophil# 0.03 X10^3/uL; Basophil% 0.2 % (0-1); Eosinophil# 0.07 X10^3/uL; Eosinophils% 0.5 % (0-5); Hematocrit 39.6 % (40-54); Hemoglobin 12.6 g/dl (13.0-16.5); Lymphocyte # 0.88 X10^3/ul (4.0); Mean Corp Hgb Conc 31.8 g/gl (32-36); Mean Corpuscular Hgb 30.5 pg (27.0-32.0); Mean Corpuscular Volume 95.9 fL (80-94); Mean Platelet Vol. 10.2 fl (6.2-12.0); Monocyte# 0.62 X10^3/uL; Monocyte% 4.2 % (0-10); Neutrophil # 13.08 X10^3/uL (2.7-7.7); Neutrophil % 88.7 % (47-70); Platelet Count 208 K/mm3 (150-450); RBC Distribution Width SD 47.4 fl (35.1-43.9); Red Blood Count 4.13 M/mm3 (4.6-6.2); White Blood Count 14.7 K/mm3 (4.4-11.0)
[2017-07-31 11:43] LABS: POSITIVE COUNT NO; POSITIVE DIFFERENTIAL NO; POSITIVE MORPHOLOGY NO
[2017-07-31 12:00] LABS: ALB/GLOB Ratio 0.9 RATIO (0.9-2.4); AST(SGOT) 18 U/L (15-37); Alanine Aminotransfer ALT/SGPT 30 U/L (16-61); Albumin, Serum 3.1 g/dL (3.2-5.0); Alkaline Phosphatase 111 U/L (45-117); Anion Gap 7 (5-15); BUN 27 mg/dL (7-18); BUN/Creat Ratio 27.9 RATIO (10-20); Calcium,Total 8.3 mg/dL (8.5-10.1); Chloride 109 mmol/L (98-107); Creatinine, Serum 0.97 mg/dL (0.70-1.30); EST Glomerular Filtration Rate 84 mL/min (>60); Est Glom Filt Rate - Afr Amer 101 mL/min (>60); Globulin 3.4 g/dL (2.2-4.2); Glucose 105 mg/dL (74-106); Potassium 3.9 mmol/L (3.5-5.1); Protein, Total 6.5 g/dL (6.4-8.2); Sodium Level 143 mmol/L (136-145)
== END ==
PROVIDERS: Family Provider Family Medicine; PCP Family Medicine
DX: E87.8 Other disorders of electrolyte and fluid balance, not elsewhere classified (principal); E83.39 Other disorders of phosphorus metabolism; E83.40 Disorders of magnesium metabolism, unspecified; R63.3 Feeding difficulties; Z91.89 Other specified personal risk factors, not elsewhere classified; Z78.9 Other specified health status; R68.89 Other general symptoms and signs; K76.9 Liver disease, unspecified; D68.4 Acquired coagulation factor deficiency; R79.82 Elevated C-reactive protein (CRP); J96.11 Chronic respiratory failure with hypoxia; J44.9 Chronic obstructive pulmonary disease, unspecified; I10 Essential (primary) hypertension
CPT/HCPCS: 36592; 71046; 80053; 83735; 84100; 85025

== ENCOUNTER → 2017-08-07 10:50 | Outpatient (CLI) | payer MEDICARE, SELFPAY | PROVIDERS: Family Provider Family Medicine; PCP Family Medicine | DX: E87.8 Other disorders of electrolyte and fluid balance, not elsewhere classified (principal); Z78.9 Other specified health status; Z91.89 Other specified personal risk factors, not elsewhere classified; E83.39 Other disorders of phosphorus metabolism; E83.40 Disorders of magnesium metabolism, unspecified; R63.3 Feeding difficulties; K76.9 Liver disease, unspecified; T56.894A Toxic effect of other metals, undetermined, initial encounter; D68.4 Acquired coagulation factor deficiency; R79.82 Elevated C-reactive protein (CRP); J44.9 Chronic obstructive pulmonary disease, unspecified | CPT/HCPCS: 97150; 99211; G0424; G0463 ==

== ENCOUNTER → 2017-08-14 10:45 | Outpatient (CLI) | payer MEDICARE, SELFPAY | PROVIDERS: Family Provider Family Medicine; PCP Family Medicine | DX: E87.8 Other disorders of electrolyte and fluid balance, not elsewhere classified (principal); Z78.9 Other specified health status; Z91.89 Other specified personal risk factors, not elsewhere classified; E83.39 Other disorders of phosphorus metabolism; E83.40 Disorders of magnesium metabolism, unspecified; R63.3 Feeding difficulties; K76.9 Liver disease, unspecified; T56.894A Toxic effect of other metals, undetermined, initial encounter; D68.4 Acquired coagulation factor deficiency; R79.82 Elevated C-reactive protein (CRP); J44.9 Chronic obstructive pulmonary disease, unspecified | CPT/HCPCS: 97150; 99211; G0424; G0463 ==

== ENCOUNTER 2017-08-18 09:30 | Outpatient (RCR) | payer MEDICARE, SELFPAY ==
[2017-07-20 01:08] VITALS: PULSE 103; RESP 18; TEMP 36.3; O2SAT 95
--- NOTE | 2017-08-14 13:40 | PR.DATECOV_ITS ---
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 Effective Jan 20, 2013 our hours will be changing to 8:00 to 4:30 on Monday, Monday and Monday. First Date of the Month: 08/20/17 Last Date of the Month: 09/18/17
--- NOTE | 2017-08-14 13:45 | PR.ITP_ITS ---
Exercise - 60-Day Assessment - Current Level Mode:: Treadmill, NuStep, Arm Ergometer Frequency (x/week): 3 Duration:: 30 Aerobic Exercise [30-60 min 3-7x/week]:: Progressing Target heart rate: 118 - 110-118 w/max HR 124 Sandrine MET Level:: 2 - Home Exercise Home Exercise:: No Disease Management - 60-Day - Hypoxemia Reassessment: Demonstrates knowledge of O2 Rx at rest, Demonstrates knowledge of O2 Rx with exercise, Using O2 as prescribed, Has home O2 as prescribed, Uses port O2 as prescribed - Medications Medication list reviewed:: Yes Taking medications 100% of the time:: Met Medication reassessment: Yes Pt demonstrates correct technique timing for MDI, Yes Pt demonstrates correct technique timing for DPI, Yes Pt demonstrates correct technique timing for NEB, Yes Pt demonstrates correct technique timing for spacer - Bronchial Hygiene Bronchial Hygiene Plan: Yes Pt demo correct for device - returned demonstration of acapella device, Yes Pt demo correct for improved hydration - encouraged water intake, Yes Pt demo correct for hand hygiene - uses proper hand hygiene Psychosocial - 60-Day - Assessment Depression reassess: Management of stress: Progressing, Management of depression : Progressing, Practicing interventions: Progressing Tobacco - 60-Day Assessment - Program Goals Tobacco Program Goals: Complete smoking cessation. Attend education classes. Improve Knowledge Test score - Stage of Change Stages of Change:: Action - Learning Barriers Learning Barriers: Participates in education - Family Support Do you have family support?: Yes - Tobacco Use Do you use smokeless tobacco?: No - Intervention Smoking Cessation Referral:: No Individual Education/Counseling:: No Education Schedule Given:: Yes - Education Gave Education Materials For:: Pulmonary Disease, Risk Factors, Breathing Techniques, Medical Compliance, Pulmonary A&P, Exacerbation Signs & Symptoms, Stress & Relaxation Nutrition/Wt Mgmt - 60-Day - Weight Management Weight Assessment:: BMI 21 to 25 Weight:: 166 lb - up 14 pounds this month Patient Health Questionnaire 60-Day Re-eval Assessment 1. Little interest or pleasure in doing things: Several days 2. Feeling down, depressed, or hopeless: Not at all 3. Trouble falling or staying asleep, or sleeping too much: Several days 4. Feeling tired or having little energy: Several days 5. Poor appetite or overeating: Several days 6. Feeling bad about yourself -- or that you are a failure or have let yourself or your family down: Not at all 7. Trouble concentrating on things, such as reading the newspaper or watching television: Not at all 8. Moving or speaking so slowly that other people could have noticed. Or the opposite - being so fidgety or restless that you have been moving around a lot more than usual: Not at all 9. Thoughts that you would be better off , or of hurting yourself in some way: Not at all How difficult have these problems made it for you to do your work, take care of things at home, or get along with other people?: Not difficult at all Total Score: 4 COPD Assessment Test [CAT] - Questions Never cough = 0, Cough all the time = 5: 3 No phlegm = 0, Chest full of phlegm = 5: 3 No chest tightness = 0, Chest very tight = 5: 4 No breathless w/exertion = 0, Very breathless w/exertion = 5: 3 No limitations w/activity = 0, Very limited w/activity = 5: 2 Confident leaving home = 0, Not at all confident = 5: 2 Sleep soundly = 0, Don't sleep soundly = 5: 3 Lots of energy = 0, No energy at all = 5: 2 Total CAT score:: 22 Self-Efficacy 60-Day Re-eval Assessment We would like to know how confident you are in doing certain activities. Please select your confidence level for:: Select your confidence level for the following using the scale 1-10 where 1 is not at all confident and 10 is totally confident. Your score is the average of all 6 responses. Fatigue: How confident are you that you can keep the fatigue caused by your disease from interfering with the things you want to do? Select Number: 5 Physical Discomfort or Pain: How confident are you that you can keep the physical discomfort or pain of your disease from interfering with the things you want to do? Select Number: 8 Emotional Distress: How confident are you that you can keep the emotional distress caused by your disease from interfering with the things you want to do? Select Number: 8 Other Symptoms or Health Problems: How confident are you that you can keep other symptoms or health problems from interfering with the things you want to do? Select Number: 9 Different Tasks and Activities: How confident are you that you can do the different tasks and activities needed to manage your health condition so as to reduce your need to see a doctor? Select Number: 7 Medication: How confident are you that you can do things other than just taking medication to reduce how much your illness affects your everyday life? Select Number: 8 Total Score:: 7
== END 2017-08-19 23:59 ==
LOC: PR 09:30
PROVIDERS: Family Provider Family Medicine; PCP Family Medicine; Visit Provider Internal Medicine Critical Care Medicine
DX: J44.9 Chronic obstructive pulmonary disease, unspecified (principal)
CPT/HCPCS: 97150; G0424

== ENCOUNTER → 2017-08-21 10:35 | Outpatient (CLI) | payer MEDICARE, SELFPAY ==
[2017-08-21 11:50] LABS: Absolute Lymphocyte Count 1.44 X10^3/ul (0.83-4.51); Basophil# 0.04 X10^3/uL; Basophil% 0.4 % (0-1); Eosinophil# 0.32 X10^3/uL; Eosinophils% 2.9 % (0-5); Hematocrit 37.3 % (40-54); Hemoglobin 11.9 g/dl (13.0-16.5); Lymphocyte # 1.44 X10^3/ul (4.0); Mean Corp Hgb Conc 31.9 g/gl (32-36); Mean Corpuscular Hgb 30.2 pg (27.0-32.0); Mean Corpuscular Volume 94.7 fL (80-94); Mean Platelet Vol. 10.9 fl (6.2-12.0); Monocyte# 1.21 X10^3/uL; Neutrophil # 8.02 X10^3/uL (2.7-7.7); Neutrophil % 72.5 % (47-70); Platelet Count 191 K/mm3 (150-450); RBC Distribution Width CV 13.1 % (11.6-14.6); RBC Distribution Width SD 44.1 fl (35.1-43.9); Red Blood Count 3.94 M/mm3 (4.6-6.2); White Blood Count 11.1 K/mm3 (4.4-11.0)
[2017-08-21 11:53] LABS: POSITIVE COUNT NO; POSITIVE DIFFERENTIAL NO; POSITIVE MORPHOLOGY NO
[2017-08-21 12:05] LABS: ALB/GLOB Ratio 0.8 RATIO (0.9-2.4); AST(SGOT) 19 U/L (15-37); Alanine Aminotransfer ALT/SGPT 25 U/L (16-61); Albumin, Serum 2.9 g/dL (3.2-5.0); Alkaline Phosphatase 122 U/L (45-117); Anion Gap 8 (5-15); BUN 24 mg/dL (7-18); BUN/Creat Ratio 23.1 RATIO (10-20); CRP 7.57 mg/L (0.0-3.0); Calcium,Total 8.5 mg/dL (8.5-10.1); Chloride 107 mmol/L (98-107); Creatinine, Serum 1.04 mg/dL (0.70-1.30); EST Glomerular Filtration Rate 77 mL/min (>60); Est Glom Filt Rate - Afr Amer 93 mL/min (>60); Globulin 3.7 g/dL (2.2-4.2); Glucose 88 mg/dL (74-106); Magnesium 1.8 mg/dL (1.6-2.6); Phosphorus 3.5 mg/dL (2.5-4.9); Protein, Total 6.6 g/dL (6.4-8.2); Sodium Level 141 mmol/L (136-145)
[2017-08-25 09:24] LABS: Copper, Serum or Plasma 83 ug/dL (72-166); Zinc, Plasma or Serum 54 ug/dL (56-134)
== END ==
PROVIDERS: Family Provider Family Medicine; PCP Family Medicine
DX: E87.8 Other disorders of electrolyte and fluid balance, not elsewhere classified (principal); E83.39 Other disorders of phosphorus metabolism; E83.40 Disorders of magnesium metabolism, unspecified; R63.3 Feeding difficulties; Z78.9 Other specified health status; J96.11 Chronic respiratory failure with hypoxia; J44.9 Chronic obstructive pulmonary disease, unspecified; I10 Essential (primary) hypertension; K76.9 Liver disease, unspecified; T56.894A Toxic effect of other metals, undetermined, initial encounter; D68.4 Acquired coagulation factor deficiency; R79.82 Elevated C-reactive protein (CRP)
CPT/HCPCS: 36592; 80053; 82525; 83735; 84100; 84630; 85025; 86140; 97150; G0424

== ENCOUNTER → 2017-08-28 10:30 | Outpatient (CLI) | payer MEDICARE, SELFPAY ==
[2017-08-28 10:59] LABS: Absolute Lymphocyte Count 0.84 X10^3/ul (0.83-4.51); Absolute Neutrophil Count 13.1 X10^3/uL (2.0-7.7); Basophil# 0.04 X10^3/uL; Basophil% 0.3 % (0-1); Eosinophil# 0.21 X10^3/uL; Eosinophils% 1.4 % (0-5); Hematocrit 37.3 % (40-54); Hemoglobin 12.1 g/dl (13.0-16.5); Lymphocyte # 0.84 X10^3/ul (4.0); Lymphocyte % 5.5 % (19-41); Mean Corp Hgb Conc 32.4 g/gl (32-36); Mean Corpuscular Hgb 30.7 pg (27.0-32.0); Mean Corpuscular Volume 94.7 fL (80-94); Mean Platelet Vol. 10.1 fl (6.2-12.0); Monocyte# 0.91 X10^3/uL; Neutrophil # 13.13 X10^3/uL (2.7-7.7); Neutrophil % 86.3 % (47-70); Platelet Count 228 K/mm3 (150-450); RBC Distribution Width CV 13.1 % (11.6-14.6); RBC Distribution Width SD 43.7 fl (35.1-43.9); Red Blood Count 3.94 M/mm3 (4.6-6.2); White Blood Count 15.2 K/mm3 (4.4-11.0)
[2017-08-28 11:01] LABS: POSITIVE COUNT NO; POSITIVE DIFFERENTIAL NO; POSITIVE MORPHOLOGY NO
[2017-08-28 11:27] LABS: ALB/GLOB Ratio 0.8 RATIO (0.9-2.4); AST(SGOT) 15 U/L (15-37); Alanine Aminotransfer ALT/SGPT 23 U/L (16-61); Albumin, Serum 3.2 g/dL (3.2-5.0); Alkaline Phosphatase 134 U/L (45-117); Anion Gap 6 (5-15); BUN 26 mg/dL (7-18); Calcium,Total 8.7 mg/dL (8.5-10.1); Chloride 105 mmol/L (98-107); Creatinine, Serum 1.04 mg/dL (0.70-1.30); EST Glomerular Filtration Rate 77 mL/min (>60); Est Glom Filt Rate - Afr Amer 93 mL/min (>60); Globulin 3.8 g/dL (2.2-4.2); Glucose 102 mg/dL (74-106); Potassium 4.1 mmol/L (3.5-5.1); Sodium Level 140 mmol/L (136-145)
== END ==
PROVIDERS: Family Provider Family Medicine; PCP Family Medicine
DX: E87.8 Other disorders of electrolyte and fluid balance, not elsewhere classified (principal); E83.39 Other disorders of phosphorus metabolism; E83.40 Disorders of magnesium metabolism, unspecified; K76.9 Liver disease, unspecified; D68.4 Acquired coagulation factor deficiency; R63.3 Feeding difficulties; R79.82 Elevated C-reactive protein (CRP); T56.894A Toxic effect of other metals, undetermined, initial encounter; Z91.89 Other specified personal risk factors, not elsewhere classified; Z78.9 Other specified health status
CPT/HCPCS: 80053; 83735; 84100; 85025

== ENCOUNTER → 2017-09-04 10:41 | Outpatient (CLI) | payer MEDICARE, SELFPAY ==
[2017-09-04 11:11] LABS: Absolute Lymphocyte Count 0.88 X10^3/ul (0.83-4.51); Absolute Neutrophil Count 14.2 X10^3/uL (2.0-7.7); Basophil# 0.05 X10^3/uL; Basophil% 0.3 % (0-1); Eosinophil# 0.16 X10^3/uL; Hematocrit 37.2 % (40-54); Hemoglobin 11.9 g/dl (13.0-16.5); Lymphocyte # 0.88 X10^3/ul (4.0); Lymphocyte % 5.4 % (19-41); Mean Corpuscular Hgb 29.9 pg (27.0-32.0); Mean Corpuscular Volume 93.5 fL (80-94); Mean Platelet Vol. 9.7 fl (6.2-12.0); Monocyte# 0.93 X10^3/uL; Monocyte% 5.7 % (0-10); Neutrophil # 14.21 X10^3/uL (2.7-7.7); Platelet Count 257 K/mm3 (150-450); RBC Distribution Width CV 12.8 % (11.6-14.6); Red Blood Count 3.98 M/mm3 (4.6-6.2); White Blood Count 16.3 K/mm3 (4.4-11.0)
[2017-09-04 11:12] LABS: POSITIVE COUNT NO; POSITIVE DIFFERENTIAL NO; POSITIVE MORPHOLOGY NO
[2017-09-04 11:43] LABS: ALB/GLOB Ratio 0.9 RATIO (0.9-2.4); AST(SGOT) 14 U/L (15-37); Alanine Aminotransfer ALT/SGPT 24 U/L (16-61); Albumin, Serum 3.1 g/dL (3.2-5.0); Alkaline Phosphatase 142 U/L (45-117); Anion Gap 8 (5-15); BUN 24 mg/dL (7-18); BUN/Creat Ratio 21.4 RATIO (10-20); Calcium,Total 8.5 mg/dL (8.5-10.1); Chloride 107 mmol/L (98-107); Creatinine, Serum 1.12 mg/dL (0.70-1.30); EST Glomerular Filtration Rate 71 mL/min (>60); Est Glom Filt Rate - Afr Amer 86 mL/min (>60); Globulin 3.6 g/dL (2.2-4.2); Glucose 100 mg/dL (74-106); Phosphorus 3.2 mg/dL (2.5-4.9); Potassium 4.2 mmol/L (3.5-5.1); Protein, Total 6.7 g/dL (6.4-8.2); Sodium Level 142 mmol/L (136-145)
== END ==
PROVIDERS: Family Provider Family Medicine; PCP Family Medicine
DX: E87.8 Other disorders of electrolyte and fluid balance, not elsewhere classified (principal); E83.39 Other disorders of phosphorus metabolism; E83.40 Disorders of magnesium metabolism, unspecified; R63.3 Feeding difficulties; Z78.9 Other specified health status; Z91.89 Other specified personal risk factors, not elsewhere classified
CPT/HCPCS: 36592; 80053; 83735; 84100; 85025; A4216

== ENCOUNTER → 2017-09-06 10:59 | Outpatient (CLI) | payer MEDICARE, SELFPAY | PROVIDERS: Family Provider Family Medicine; PCP Family Medicine | DX: E87.8 Other disorders of electrolyte and fluid balance, not elsewhere classified (principal); E83.89 Other disorders of mineral metabolism; E83.40 Disorders of magnesium metabolism, unspecified; R63.3 Feeding difficulties; K76.9 Liver disease, unspecified; D68.4 Acquired coagulation factor deficiency; R79.82 Elevated C-reactive protein (CRP); Z78.9 Other specified health status | CPT/HCPCS: 36592; 87040; 87186; A4216 ==

== ENCOUNTER → 2017-09-08 11:19 | Outpatient (CLI) | payer MEDICARE, SELFPAY | PROVIDERS: Family Provider Family Medicine; PCP Family Medicine | DX: Z78.9 Other specified health status (principal); E87.8 Other disorders of electrolyte and fluid balance, not elsewhere classified; Z91.89 Other specified personal risk factors, not elsewhere classified; E83.89 Other disorders of mineral metabolism; E83.40 Disorders of magnesium metabolism, unspecified; R63.3 Feeding difficulties; K76.9 Liver disease, unspecified; D68.4 Acquired coagulation factor deficiency; R79.82 Elevated C-reactive protein (CRP) | CPT/HCPCS: 36592; 87040; A4216 ==

== ENCOUNTER → 2017-09-11 10:30 | Outpatient (CLI) | payer MEDICARE, SELFPAY ==
[2017-09-11 10:50] LABS: Absolute Lymphocyte Count 0.99 X10^3/ul (0.83-4.51); Absolute Neutrophil Count 12.2 X10^3/uL (2.0-7.7); Basophil# 0.04 X10^3/uL; Basophil% 0.3 % (0-1); Eosinophils% 2.1 % (0-5); Hematocrit 35.4 % (40-54); Hemoglobin 11.1 g/dl (13.0-16.5); Lymphocyte # 0.99 X10^3/ul (4.0); Lymphocyte % 6.8 % (19-41); Mean Corp Hgb Conc 31.4 g/gl (32-36); Mean Corpuscular Hgb 29.4 pg (27.0-32.0); Mean Corpuscular Volume 93.7 fL (80-94); Mean Platelet Vol. 9.6 fl (6.2-12.0); Monocyte# 1.05 X10^3/uL; Monocyte% 7.2 % (0-10); Neutrophil # 12.19 X10^3/uL (2.7-7.7); Neutrophil % 83.3 % (47-70); POSITIVE COUNT NO; POSITIVE DIFFERENTIAL NO; POSITIVE MORPHOLOGY NO; Platelet Count 204 K/mm3 (150-450); RBC Distribution Width CV 13.8 % (11.6-14.6); RBC Distribution Width SD 47.2 fl (35.1-43.9); Red Blood Count 3.78 M/mm3 (4.6-6.2); White Blood Count 14.6 K/mm3 (4.4-11.0)
[2017-09-11 11:14] LABS: ALB/GLOB Ratio 0.9 RATIO (0.9-2.4); AST(SGOT) 25 U/L (15-37); Alanine Aminotransfer ALT/SGPT 27 U/L (16-61); Alkaline Phosphatase 124 U/L (45-117); Anion Gap 5 (5-15); BUN 26 mg/dL (7-18); Calcium,Total 8.3 mg/dL (8.5-10.1); Chloride 108 mmol/L (98-107); Creatinine, Serum 1.04 mg/dL (0.70-1.30); EST Glomerular Filtration Rate 77 mL/min (>60); Est Glom Filt Rate - Afr Amer 93 mL/min (>60); Globulin 3.2 g/dL (2.2-4.2); Glucose 101 mg/dL (74-106); Phosphorus 3.2 mg/dL (2.5-4.9); Potassium 4.1 mmol/L (3.5-5.1); Protein, Total 6.2 g/dL (6.4-8.2); Sodium Level 141 mmol/L (136-145)
== END ==
PROVIDERS: Family Provider Family Medicine; PCP Family Medicine
DX: E87.8 Other disorders of electrolyte and fluid balance, not elsewhere classified (principal); E83.39 Other disorders of phosphorus metabolism; E83.40 Disorders of magnesium metabolism, unspecified; R63.3 Feeding difficulties; Z78.9 Other specified health status; Z91.89 Other specified personal risk factors, not elsewhere classified
CPT/HCPCS: 36592; 80053; 83735; 84100; 85025

== ENCOUNTER 2017-09-18 09:30 | Outpatient (RCR) | payer MEDICARE, SELFPAY ==
[2017-08-20 00:56] VITALS: PULSE 103; RESP 18; TEMP 36.3; O2SAT 95
--- NOTE | 2017-09-12 08:08 | PR.DATECOV_ITS ---
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 Effective Jan 20, 2013 our hours will be changing to 8:00 to 4:30 on Monday, Monday and Monday. First Date of the Month: 09/19/17 Last Date of the Month: 10/18/17
--- NOTE | 2017-09-12 08:14 | PR.ITP_ITS ---
Exercise - 90-Day Assessment - Exercise Prescription Mode:: Treadmill, NuStep, Arm Ergometer Frequency (x/week): 3 Duration:: 30 Aerobic Exercise [30-60 min 3-7x/week]:: Not progressing Target heart rate: 127 - THRR 118-127 w/ max HR of 114 Sandrine MET Level:: 3 - no improvement - Home Exercise Home Exercise?: No Disease Management - 90-Day - Hypoxemia Reassessment: Demonstrates knowledge of O2 Rx at rest, Demonstrates knowledge of O2 Rx with exercise, Using O2 as prescribed, Has home O2 as prescribed, Uses port O2 as prescribed - Medications Medication list reviewed:: Yes Taking medications 100% of the time:: Met Psychosocial - 90-Day - Assessment Depression reassess: Management of stress: Progressing, Management of depression : Progressing, Practicing interventions: Progressing - needs to practice relaxation and panic control techniques. Easily loses control. Tobacco - 90-Day Assessment - Program Goals Tobacco Program Goals: Complete smoking cessation. Attend education classes. Improve Knowledge Test score - Stage of Change Stages of Change:: Action - Learning Barriers Learning Barriers: Participates in education - Family Support Do you have family support?: Yes - Intervention Education Schedule Given:: Yes - Education Gave Education Materials For:: Tobacco Triggers, Pulmonary Disease, Risk Factors , Breathing Techniques, Medical Compliance, Pulmonary A&P, Exacerbation Signs & Symptoms, Stress & Relaxation Nutrition/Wt Mgmt - 90-Day - Weight Management Weight:: 170 lb - up from 166 Weight Goals Progress:: Progressing Patient Health Questionnaire 90-Day Re-eval Assessment 1. Little interest or pleasure in doing things: Several days 2. Feeling down, depressed, or hopeless: Several days 3. Trouble falling or staying asleep, or sleeping too much: Several days 4. Feeling tired or having little energy: Several days 5. Poor appetite or overeating: Several days 6. Feeling bad about yourself -- or that you are a failure or have let yourself or your family down: Not at all 7. Trouble concentrating on things, such as reading the newspaper or watching television: Not at all 8. Moving or speaking so slowly that other people could have noticed. Or the opposite - being so fidgety or restless that you have been moving around a lot more than usual: Not at all 9. Thoughts that you would be better off , or of hurting yourself in some way: Not at all How difficult have these problems made it for you to do your work, take care of things at home, or get along with other people?: Somewhat difficult Total Score: 5 COPD Assessment Test [CAT] - Questions Never cough = 0, Cough all the time = 5: 3 No phlegm = 0, Chest full of phlegm = 5: 3 No chest tightness = 0, Chest very tight = 5: 4 No breathless w/exertion = 0, Very breathless w/exertion = 5: 3 No limitations w/activity = 0, Very limited w/activity = 5: 2 Confident leaving home = 0, Not at all confident = 5: 2 Sleep soundly = 0, Don't sleep soundly = 5: 3 Lots of energy = 0, No energy at all = 5: 4 Total CAT score:: 24 Self-Efficacy 90-Day Re-eval Assessment We would like to know how confident you are in doing certain activities. Please select your confidence level for:: Select your confidence level for the following using the scale 1-10 where 1 is not at all confident and 10 is totally confident. Your score is the average of all 6 responses. Fatigue: How confident are you that you can keep the fatigue caused by your disease from interfering with the things you want to do? Select Number: 6 Physical Discomfort or Pain: How confident are you that you can keep the physical discomfort or pain of your disease from interfering with the things you want to do? Select Number: 8 Emotional Distress: How confident are you that you can keep the emotional distress caused by your disease from interfering with the things you want to do? Select Number: 8 Other Symptoms or Health Problems: How confident are you that you can keep other symptoms or health problems from interfering with the things you want to do? Select Number: 7 Different Tasks and Activities: How confident are you that you can do the different tasks and activities needed to manage your health condition so as to reduce your need to see a doctor? Select Number: 8 Medication: How confident are you that you can do things other than just taking medication to reduce how much your illness affects your everyday life? Select Number: 8 Total Score:: 7
== END 2017-09-18 23:59 ==
LOC: PR 09:30
PROVIDERS: Family Provider Family Medicine; PCP Family Medicine; Visit Provider Internal Medicine Critical Care Medicine
DX: J44.9 Chronic obstructive pulmonary disease, unspecified (principal); E87.8 Other disorders of electrolyte and fluid balance, not elsewhere classified; E83.89 Other disorders of mineral metabolism; E83.40 Disorders of magnesium metabolism, unspecified; K76.9 Liver disease, unspecified; D68.4 Acquired coagulation factor deficiency; R79.82 Elevated C-reactive protein (CRP); R63.3 Feeding difficulties; Z78.9 Other specified health status; Z91.89 Other specified personal risk factors, not elsewhere classified
CPT/HCPCS: 80053; 83735; 84100; 85025; 97150; G0424

== ENCOUNTER → 2017-09-18 10:33 | Outpatient (CLI) | payer MEDICARE, SELFPAY ==
[2017-09-18 11:10] LABS: Absolute Lymphocyte Count 0.98 X10^3/ul (0.83-4.51); Absolute Neutrophil Count 11.5 X10^3/uL (2.0-7.7); Basophil# 0.05 X10^3/uL; Basophil% 0.4 % (0-1); Eosinophil# 0.25 X10^3/uL; Eosinophils% 1.8 % (0-5); Lymphocyte # 0.98 X10^3/ul (4.0); Lymphocyte % 7.1 % (19-41); Mean Corp Hgb Conc 32.4 g/gl (32-36); Mean Corpuscular Hgb 30.5 pg (27.0-32.0); Mean Corpuscular Volume 94.1 fL (80-94); Mean Platelet Vol. 10.3 fl (6.2-12.0); Monocyte# 1.04 X10^3/uL; Monocyte% 7.5 % (0-10); Neutrophil # 11.47 X10^3/uL (2.7-7.7); Neutrophil % 82.9 % (47-70); Platelet Count 180 K/mm3 (150-450); RBC Distribution Width CV 14.2 % (11.6-14.6); Red Blood Count 3.93 M/mm3 (4.6-6.2); White Blood Count 13.8 K/mm3 (4.4-11.0)
[2017-09-18 11:12] LABS: POSITIVE COUNT NO; POSITIVE DIFFERENTIAL NO; POSITIVE MORPHOLOGY NO
[2017-09-18 11:19] LABS: AST(SGOT) 23 U/L (15-37); Alanine Aminotransfer ALT/SGPT 32 U/L (16-61); Albumin, Serum 3.4 g/dL (3.2-5.0); Alkaline Phosphatase 138 U/L (45-117); Anion Gap 5 (5-15); BUN 20 mg/dL (7-18); BUN/Creat Ratio 16.5 RATIO (10-20); Calcium,Total 8.7 mg/dL (8.5-10.1); Chloride 106 mmol/L (98-107); Creatinine, Serum 1.21 mg/dL (0.70-1.30); EST Glomerular Filtration Rate 65 mL/min (>60); Est Glom Filt Rate - Afr Amer 78 mL/min (>60); Globulin 3.5 g/dL (2.2-4.2); Glucose 102 mg/dL (74-106); Phosphorus 3.3 mg/dL (2.5-4.9); Protein, Total 6.9 g/dL (6.4-8.2); Sodium Level 140 mmol/L (136-145)
== END ==
PROVIDERS: Family Provider Family Medicine; PCP Family Medicine
DX: E87.8 Other disorders of electrolyte and fluid balance, not elsewhere classified (principal); E83.39 Other disorders of phosphorus metabolism; E83.40 Disorders of magnesium metabolism, unspecified; R63.3 Feeding difficulties; Z78.9 Other specified health status; Z91.89 Other specified personal risk factors, not elsewhere classified
CPT/HCPCS: 36592; 80053; 83735; 84100; 85025; A4216

== ENCOUNTER → 2017-09-25 10:15 | Outpatient (CLI) | payer MEDICARE, SELFPAY ==
[2017-09-25 10:47] LABS: Absolute Lymphocyte Count 0.78 X10^3/ul (0.83-4.51); Absolute Neutrophil Count 11.4 X10^3/uL (2.0-7.7); Basophil# 0.03 X10^3/uL; Basophil% 0.2 % (0-1); Eosinophil# 0.28 X10^3/uL; Eosinophils% 2.1 % (0-5); Hematocrit 38.6 % (40-54); Hemoglobin 11.9 g/dl (13.0-16.5); Lymphocyte # 0.78 X10^3/ul (4.0); Lymphocyte % 5.9 % (19-41); Mean Corp Hgb Conc 30.8 g/gl (32-36); Mean Corpuscular Volume 94.1 fL (80-94); Mean Platelet Vol. 9.8 fl (6.2-12.0); Monocyte# 0.72 X10^3/uL; Monocyte% 5.4 % (0-10); Neutrophil # 11.38 X10^3/uL (2.7-7.7); Neutrophil % 86.1 % (47-70); Platelet Count 180 K/mm3 (150-450); RBC Distribution Width CV 14.2 % (11.6-14.6); RBC Distribution Width SD 48.6 fl (35.1-43.9); White Blood Count 13.2 K/mm3 (4.4-11.0)
[2017-09-25 10:48] LABS: POSITIVE COUNT NO; POSITIVE DIFFERENTIAL NO; POSITIVE MORPHOLOGY NO
[2017-09-25 11:00] LABS: ALB/GLOB Ratio 0.9 RATIO (0.9-2.4); AST(SGOT) 16 U/L (15-37); Alanine Aminotransfer ALT/SGPT 28 U/L (16-61); Albumin, Serum 3.4 g/dL (3.2-5.0); Alkaline Phosphatase 153 U/L (45-117); Anion Gap 7 (5-15); BUN 21 mg/dL (7-18); BUN/Creat Ratio 17.1 RATIO (10-20); Calcium,Total 8.4 mg/dL (8.5-10.1); Chloride 105 mmol/L (98-107); Creatinine, Serum 1.23 mg/dL (0.70-1.30); EST Glomerular Filtration Rate 63 mL/min (>60); Est Glom Filt Rate - Afr Amer 77 mL/min (>60); Globulin 3.6 g/dL (2.2-4.2); Glucose 130 mg/dL (74-106); Magnesium 1.9 mg/dL (1.6-2.6); Phosphorus 3.6 mg/dL (2.5-4.9); Potassium 4.3 mmol/L (3.5-5.1); Sodium Level 140 mmol/L (136-145)
== END ==
PROVIDERS: Family Provider Family Medicine; PCP Family Medicine
DX: E87.8 Other disorders of electrolyte and fluid balance, not elsewhere classified (principal); E83.39 Other disorders of phosphorus metabolism; E83.40 Disorders of magnesium metabolism, unspecified; R63.3 Feeding difficulties; Z78.9 Other specified health status; Z91.89 Other specified personal risk factors, not elsewhere classified; K76.9 Liver disease, unspecified; D68.4 Acquired coagulation factor deficiency
CPT/HCPCS: 36592; 80053; 83735; 84100; 85025

== ENCOUNTER → 2017-09-26 15:37 | Outpatient (CLI) | payer MEDICARE, SELFPAY ==
--- NOTE | 2017-09-26 15:45 | RAD_ITS ---
STUDY: X-RAY CHEST REASON FOR EXAM: Male, 61 years old. Shortness of breath, chest pain TECHNIQUE: Frontal and lateral view COMPARISON: July 31, 2017 FINDINGS: There is a right-sided venous catheter with tip at the proximal SVC level. The lungs are hyperaerated. There is no demonstrated pleural abnormality. Normal size heart. Normal mediastinum and susan. Normal visualized pulmonary arteries. Normal visualized aortic arch and descending thoracic aorta. Normal visualized thoracic spine. Possible resorption or old injury of the left clavicle. There is no demonstrated abnormality of the visualized soft tissue structures of the upper abdomen. RAD/Chest PA and Lateral IMPRESSION: Mild hyperaeration. Electronically Signed: Santy Britt DO at 23:38 EDT Tel [phone], Service support ,
== END ==
PROVIDERS: Family Provider Family Medicine; PCP Family Medicine
DX: R07.9 Chest pain, unspecified (principal); Z78.9 Other specified health status
CPT/HCPCS: 71046

== ENCOUNTER → 2017-10-02 13:08 | Outpatient (CLI) | payer MEDICARE, SELFPAY ==
[2017-10-02 15:13] LABS: Vitamin D,25 Hydroxy 29.8 ng/mL (29.95-100.01)
== END ==
PROVIDERS: Family Provider Family Medicine; PCP Family Medicine
DX: Z78.9 Other specified health status (principal); E87.8 Other disorders of electrolyte and fluid balance, not elsewhere classified; E83.39 Other disorders of phosphorus metabolism; E83.40 Disorders of magnesium metabolism, unspecified; K76.9 Liver disease, unspecified; D68.4 Acquired coagulation factor deficiency; R63.3 Feeding difficulties; R79.82 Elevated C-reactive protein (CRP); Z91.89 Other specified personal risk factors, not elsewhere classified; R68.89 Other general symptoms and signs
CPT/HCPCS: 36592; 82306

== ENCOUNTER 2017-10-06 09:30 | Outpatient (RCR) | payer MEDICARE, SELFPAY ==
[2017-09-19 00:46] VITALS: PULSE 103; RESP 18; TEMP 36.3; O2SAT 95
== END 2017-10-19 23:59 ==
LOC: PR 09:30
PROVIDERS: Family Provider Family Medicine; PCP Family Medicine; Visit Provider Internal Medicine Critical Care Medicine
DX: J44.9 Chronic obstructive pulmonary disease, unspecified (principal)
CPT/HCPCS: 97150; G0424

== ENCOUNTER 2017-10-08 18:23 | Inpatient (IN) | payer MEDICARE, SELFPAY ==
[2017-10-08] VITALS (9 sets, daily range): BP systolic 133–168; BP diastolic 81–101; PULSE 74–124; RESP 12–30; TEMP 36.6–36.9; O2SAT 97–99; BMI 25.5; BMI 24.7; BMI 24.8
--- NOTE | 2017-10-08 18:56 | CT_ITS ---
STUDY: CT ABDOMEN AND PELVIS WITHOUT CONTRAST REASON FOR EXAM: Male, 61 years old. Left flank pain RADIATION DOSAGE (If Supplied By Facility): CTDIvol = ( 7.69 ) mGy, DLP = ( 359.18 ) mGycm TECHNIQUE: Transaxial images were obtained from the dome of the diaphragm to the symphysis pubis without oral contrast, and without intravenous contrast. Sagittal and coronal images were reconstructed. Individualized dose optimization techniques were used for this CT. COMPARISON: 09/18/2016 FINDINGS: Evaluation of the abdominal viscera is limited in the absence of intravenous contrast. The visualized lung bases are clear. The visualized portions of the heart and pericardium are within normal limits. There are no calcified gallstones present. The liver demonstrates an unremarkable unenhanced appearance. The spleen is normal in size. The pancreas demonstrates an unremarkable unenhanced appearance. The adrenal glands are within normal limits. There are no renal or ureteral stones. There is no hydronephrosis. Normal visualized stomach. There are stable postsurgical changes from a colectomy with a left lower quadrant ileostomy. There is no small bowel obstruction or inflammation. 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 There is no bowel containing hernia. The aorta is normal in caliber. There is no abdominal or pelvic free air, free fluid, fluid collection or lymphadenopathy. There are no destructive osseous lesions. CT/Abdomen/Pelvis without Cont IMPRESSION: No acute abdominal or pelvic pathology demonstrated on this noncontrast CT. Stable postsurgical changes from a colectomy with a left lower quadrant ileostomy placed. Electronically Signed: Dl Quinonez, at 20:51 EDT Tel , Service support ,
[2017-10-08] MEDS: Albuterol 2.5 MG/3 ML VIAL.NEB. INHALATION ×3 (19:07)
--- NOTE | 2017-10-08 19:20 | RAD_ITS ---
STUDY: X-RAY CHEST REASON FOR EXAM: Male, 61 years old. Increased shortness of breath. TECHNIQUE: Single AP portable view of the chest. COMPARISON: September 26, 2017. FINDINGS: Right-sided central line is visible with the tip of the catheter in the superior vena cava. Cardiac monitoring leads are present. The lung bases are not visible on this study. The lungs appear hyperexpanded. There is perihilar interstitial thickening present in both lungs. There is a questionable nodule within the mid left lung measuring 2.6 cm in size. The lateral costophrenic angles are not imaged on this study. Normal size heart. There are calcified mediastinal and hilar lymph nodes. There is prominence of the pulmonary hilar arteries without peripheral pulmonary vascular congestion. There is atherosclerotic tortuosity of the aortic arch and descending thoracic aorta. Normal visualized thoracic spine. There are degenerative changes of the left shoulder with possible sequela of old left clavicle fracture. The upper abdomen is not imaged on this study. RAD/Chest 1 View (Portable) IMPRESSION: 1. The lung bases are not visible on this study. 2. Questionable left-sided pulmonary nodules. 3. COPD. Electronically Signed: Guera Meyers MD at 19:47 EDT , Service support ,
[2017-10-08 19:37] LABS: Absolute Lymphocyte Count 1.53 X10^3/ul (0.83-4.51); Absolute Neutrophil Count 7.3 X10^3/uL (2.0-7.7); Basophil# 0.04 X10^3/uL; Basophil% 0.4 % (0-1); Eosinophil# 0.26 X10^3/uL; Eosinophils% 2.5 % (0-5); Hematocrit 37.3 % (40-54); Hemoglobin 11.7 g/dl (13.0-16.5); Lymphocyte # 1.53 X10^3/ul (4.0); Mean Corp Hgb Conc 31.4 g/gl (32-36); Mean Corpuscular Hgb 28.9 pg (27.0-32.0); Mean Corpuscular Volume 92.1 fL (80-94); Mean Platelet Vol. 9.9 fl (6.2-12.0); Monocyte# 1.03 X10^3/uL; Monocyte% 10.1 % (0-10); Neutrophil # 7.34 X10^3/uL (2.7-7.7); Neutrophil % 71.8 % (47-70); Platelet Count 198 K/mm3 (150-450); RBC Distribution Width CV 13.7 % (11.6-14.6); RBC Distribution Width SD 46.1 fl (35.1-43.9); Red Blood Count 4.05 M/mm3 (4.6-6.2); White Blood Count 10.2 K/mm3 (4.4-11.0)
[2017-10-08] MEDS: Metoclopramide 10 MG/2 ML Vial IV (19:37)
[2017-10-08] MEDS: DiphenhydrAMINE 50 MG/ML Syringe 25 MG IV (19:37)
[2017-10-08] MEDS: MethylPREDNISolone 125 MG/2 ML Vial IV (19:37)
[2017-10-08] MEDS: 0.9% Normal Saline 1,000 ML 150 ML IV ×2 (19:37→23:55)
[2017-10-08] MEDS: Ketorolac 15 MG/ML Vial IV (19:37)
[2017-10-08 19:38] LABS: POSITIVE COUNT NO; POSITIVE DIFFERENTIAL NO; POSITIVE MORPHOLOGY NO
[2017-10-08 19:41] LABS: Anion Gap 10 (5-15); BUN 19 mg/dL (7-18); BUN/Creat Ratio 16.7 RATIO (10-20); Calcium,Total 8.7 mg/dL (8.5-10.1); Chloride 103 mmol/L (98-107); Creatinine, Serum 1.14 mg/dL (0.70-1.30); EST Glomerular Filtration Rate 69 mL/min (>60); Est Glom Filt Rate - Afr Amer 84 mL/min (>60); Estimated Creatinine Clearance 70.26 ml/min; Glucose 91 mg/dL (74-106); Potassium 4.1 mmol/L (3.5-5.1); Sodium Level 144 mmol/L (136-145)
--- NOTE | 2017-10-08 21:26 | ED.VISSUMM ---
- ER Visit Summary Date of Service: 10/08/17 Chief Complaint: [Difficulty breathing and back pain] History of Present Illness: The patient is a 61 M [presents the emergency department with increased difficulty breathing over last 24 hours. Patient also states that he has had some left-sided back pain that started this morning. Patient is having intermittent pain with certain position movements. Patient denies any pain rating down his legs. He denies any weakness in extremities. He denies any injury to his back. Patient denies urinary symptoms. Patient has not had a fever. Patient's had some minimal cough that is nonproductive. Patient does have a history of COPD. Has a history of short gut syndrome and gets daily TPN.] Patient also complaining of a headache that is frontal since this morning. Patient states that it reminds him of a migraine that he used to get years ago. Physical Examination: [HEENT-PERRLA, EOMI. Cranial nerves II through XII grossly intact. TMs clear. Mucous membranes moist. No adenopathy. Cardiovascular-regular rate and rhythm without murmur or ectopy Lungs-breath sounds bilaterally with expiratory wheezes. Mild tachypnea. No accessory muscle use or retractions. Abdomen-normoactive bowel sounds, soft, nontender, no rebound or rigidity, no peritoneal signs. Back exam-patient has no tenderness over the thoracic or lumbar spine. Patient does not have any tenderness on exam over the lumbar paraspinal musculature. Patient has negative straight leg raises. Deep tendon reflexes are plus out of 4 bilaterally at the patella and Achilles. Patient has normal L5 extension. Patient has normal sensation to light touch. Extremities-intact ?4, normal range of motion, normal pulses, atraumatic patient normally on 3 L nasal cannula O2 at home at all times.] Test Results: CBC with differential obtained showed a white count of 10.2, hemoglobin 11.7, hematocrit 37, platelets 198. Chemistries unremarkable. EKG shows sinus rhythm with a ventricular rate of 85 bpm. Chest x-ray showed COPD. Flank CT showed nothing acute. EKG obtained shows sinus rhythm with PACs and a ventricular rate of 85 bpm.] Emergency Department Course and Treatment: [Patient received a DuoNeb aerosol.] Patient received Reglan, Benadryl, and Toradol. During his breathing treatment patient developed severe respiratory distress with accessory muscle use and retractions. Patient was started on BiPAP. Patient's back pain and headache resolved with treatment. Treatment Plan: [Patient was started on Solu-Medrol and will be admitted] Disposition: [Admit] Impression: [COPD exacerbation Back pain Cephalgia.] This note was generated with Proofpoint dictation software. It may contain incorrect words, spelling, and punctuation that were not noted in review of the chart prior to signing ED Disposition - Plan for ED Patient: Chief Complaint: Shortness of Breath Referrals: Edwin Benton MD [Primary Care Provider] -
[2017-10-08 21:42] LABS: Bacteria 0 SEEN /hpf (None Seen); Mucous, Urine 0 SEEN /hpf (<or=2+)
[2017-10-08 21:52] LABS: Color, Urine Yellow (Yellow); Glucose, Dipstick Normal (Normal); Ketone-Dipstick Negative (Negative); Leukocyte Esterase-Dipstick Negative /ul (Negative); Nitrite-Dipstick Negative (Negative); Occult Blood-Urine 25 /ul (Negative); Protein-Dipstick 100 mg/dl (Negative); Specific Gravity, Urine 1.025 (1.002-1.030); Urine Bilirubin Dipstick Negative (Negative); Urine Clarity Clear (Clear); Urine Urobilinogen Normal (Normal)
[2017-10-08 22:09] LABS: Hyaline Cast 0-5 SEEN /lpf (0-5)
[2017-10-08 22:11] LABS: Red Blood Cells-Urine 0-5 SEEN /hpf (0-5); Squamous Epithelial Cells - UA 0-5 SEEN /hpf (0-5); White Blood Cells 0-5 SEEN /hpf (0-5)
--- NOTE | 2017-10-08 23:01 | HP.PCM_ITS ---
Problem List (1) Lung mass Status: Acute (2) COPD exacerbation Status: Acute (3) Chronic pain Status: Acute (4) PND (post-nasal drip) Status: Acute (5) Anxiety Status: Chronic (6) Chronic respiratory failure with hypoxia Status: Chronic (7) Dysphagia Status: Chronic (8) History of total colectomy Status: Chronic (9) Iron deficiency anemia Status: Chronic (10) Narcotic dependence Status: Chronic (11) Protein malnutrition Status: Chronic (12) Stage 4 very severe COPD by GOLD classification Status: Chronic (13) Tobacco dependence in remission Status: Chronic History of Present Illness Date of Admission: 10/08/17 Chief Complaint: COPD exacerbation The patient is a 61 year old male w/ h/o COPD stage 4 by GOLD classification, anemia, chronic respiratory failure, DMII and HTN admitted for COPD exacerbation. He has been having left sided flank pain. Pain has been dull- aching and constant. Pain is severe. Nothing made it better so he went to the ED for further workup. In the ED, after nebs treatment, he had to be placed temporary on bipap secondary to hypoxic respiratory failure. He has minimal nonproductive cough. No change in symptoms. He was given Toradol, Reglan, and Benadryl. His pain resolved but his SOB was persistent. He was admitted for further workup. Past Medical History Past Medical History (Chronic Problems): Chronic Problems (Last Reviewed 08/16/17 @ 18:42 by Erin Ortiz NP-[place]) Stage 4 very severe COPD by GOLD classification (Chronic) Tobacco dependence in remission (Chronic) Iron deficiency anemia (Chronic) Chronic respiratory failure with hypoxia (Chronic) Protein malnutrition (Chronic) Anxiety (Chronic) Dysphagia (Chronic) Diabetes type 2, controlled (Chronic) Narcotic dependence (Chronic) History of total colectomy (Chronic) Ileostomy present (Chronic) COPD (chronic obstructive pulmonary disease) (Chronic) Ulcerative colitis (Chronic) sp colectomy 1989; sp ileostomy Allergies sulfamethoxazole [From Bactrim] Allergy (Verified 10/08/17 18:28) Rash trimethoprim [From Bactrim] Allergy (Verified 10/08/17 18:28) Rash Home Medications: Ambulatory Orders Medication Instructions Recorded Albuterol Inhaler [Ventolin Hfa] 2 puff INHALATION Q4H PRN PRN 01/25/17 Cyanocobalamin [Vitamin B12] 1,000 mcg SC Q30D 01/25/17 Ergocalciferol [Vitamin D] 50,000 unit PO MO 01/25/17 Ferrous Sulfate 325 mg PO DAILY@0800 01/25/17 Folic Acid 1 mg PO DAILY@79901/25/17 Naproxen 1 tab PO BID PRN 04/25/17 Albuterol Aerosols [Ventolin 2.5 mg INHALATION Q2H PRN PRN #1 04/27/17 Aerosols] box fluticasone 100 mcg-umeclid 62.5 1 inh INHALATION QDAY #60 ea 06/05/17 mcg-vilant 25 mcg powd for inhalation Morphine Liquid 10 mg PO Q4H PRN 07/31/17 prednisone 10 mg tablet 10 mg PO QDAY #30 tab 07/31/17 fluticasone 50 mcg/actuation nasal 2 spray INTRANASAL QDAY #16 g 08/16/17 spray,suspension Guaifenesin/Dextromethorphan 20 ml PO Q4H PRN 10/08/17 [Guaifenesin Dm Syrup] Lorazepam [Ativan] 0.5 mg PO Q4H PRN 10/08/17 Methadone HCl [Methadone Oral 0.5 ml PO DAILY 10/08/17 Concentrate] Oxycodone [Oxyfast] 10 mg PO Q6H PRN 10/08/17 Surgical History: cholecystectomy, colectomy - 1989 with ileostomy, - - recent ileostomy revision, hernia repair 01/2016, mulitple bowel surgery with removal of some colon Psychiatric History: Anxiety, Depression Smoking Status: Never smoker - *Family History Paternal History Items: Heart Disease Maternal History Items: COPD, Hypertension Review of Systems Constitutional: Denies: Chills, Fever, Weight Change HEENT: Denies: Head Aches, Sinus Congestion, Sinus Drainage Cardiovascular: Denies: Chest Pain, Palpitations Respiratory: Denies: Cough, Shortness of breath at rest, Sputum production Gastrointestinal: Denies: Abdominal Pain, Nausea, Vomiting Genitourinary: Denies: Dysuria Musculoskeletal: Denies: Joint Pain, Joint Tenderness Skin: Denies: Rash, Wounds Neurological: Denies: Numbness, Tingling, Focal weakness Psychiatric: Denies: Anxiety, Depression, Homicidal Ideations, Suicidal Ideations Hematologic/ Lymphatic: Denies: Easy Bruising, Easy Bleeding VTE Information - Inpt Only VTE Present on Admission: No VTE Mechan Device Prophylaxis: SCD's VTE Pharm Prophylaxis ordered?: Yes Patient Problems: Active and Suspected Problems (Last Reviewed 08/16/17 @ 18:42 by Erin Ortiz NP-C) Lung mass (Acute) COPD exacerbation (Acute) Chronic pain (Acute) - Physical Exam General: Alert, Oriented x3, Cooperative HEENT: Atraumatic, PERRLA, EOMI, Normocephalic Neck: Supple, No JVD, Negative Carotid Bruits Lungs: Clear to auscultation, Normal air movement Cardiovascular: Regular rate, No murmurs Abdomen: Bowel Sounds Present, Soft, Non Tender Extremities: No edema, Capillary Refill Less than 3 Seconds Skin: No rashes, No breakdown Musculoskeletal: No Tenderness to Palpation of Joints or Extremities Neurological: Cranial nerves II-XII grossly intact Psych/Mental Status: Normal Affect, Appropriate Vital Signs Temp Pulse Resp BP Pulse Ox 97.9 F 78 20 H 149/89 H 99 10/08/17 22:54 10/08/17 22:54 10/08/17 22:54 10/08/17 22:54 10/08/17 22:54 Oxygen Flow Rate (L/min) 3 Oxygen Delivery Method Nasal Cannula Weight: 78.4 kg Body Mass Index (BMI) 24.7 Assessment/Plan Active and Suspected Problems (Last Reviewed 08/16/17 @ 18:42 by Erin Ortiz [employer]-C) Lung mass (Acute) COPD exacerbation (Acute) Chronic pain (Acute) 61 year old male w/ h/o COPD stage 4 by GOLD classification, anemia, chronic respiratory failure, DMII and HTN admitted for COPD exacerbation. 1) COPD exacerbation: CTA disclosed COPD. Will start steroid, bronchodilator and azithromycin. Cultures pending. Supportive care. 2) Lung mass: CTA disclosed spiculated nodule within the left upper lobe measuring approximately 2.5 cm in size. This could represent a bronchogenic carcinoma. Will consult pulmonary. Supportive care. 3) Chronic issues: Chronic pain, DMII and HTN: Resume home meds. Monitor. 4) Prophylaxis: Lovenox / SCD.
[2017-10-08 23:22] LABS: BNP,B-Type NATRIURETIC PEPTIDE 51.2 pg/mL (0-100)
[2017-10-09] VITALS (13 sets, daily range): BP systolic 124–146; BP diastolic 75–86; PULSE 69–93; RESP 16–22; TEMP 36.6–36.7; O2SAT 95–97
[2017-10-09 00:24] LABS: D-Dimer Quantitative (DVT/PE) 0.84 FEU/ug/m (0.27-0.49)
--- NOTE | 2017-10-09 00:29 | CT_ITS ---
STUDY: CTA CHEST REASON FOR EXAM: Male, 61 years old. Shortness of breath and elevated d-dimer. RADIATION DOSAGE (If Supplied By Facility): CTDIvol = ( 12.64 ) mGy, DLP = ( 651.19 ) mGycm TECHNIQUE: The examination was performed with the intravenous administration of 100 ml of Isovue 370 contrast material. Post-processing of the angiographic images was performed, with multiplanar reformation and 3D reconstruction. Individualized dose optimization techniques were used for this CT. COMPARISON: CTA of the chest dated February 18, 2017. FINDINGS: Cardiac monitoring leads are present. Normal enhancement of the main pulmonary artery and right and left pulmonary arteries. Normal enhancement of the bilateral peripheral pulmonary arteries. There is no demonstrated pulmonary embolism. There is atherosclerotic tortuosity of the aortic arch and descending thoracic aorta. Maximum transverse dimension of ascending thoracic aorta measures 3.8 cm. There is no demonstrated aortic dissection. Normal heart and pericardium. There are visualized mediastinal lymph nodes, which are within normal size limits, and with normal morphology. Normal hilar regions. Normal visualized trachea and bronchi. The lungs are hyper expanded, with flattening of the hemidiaphragms. There is a spiculated nodule within the left upper lobe measuring approximately 2.5 cm in size. This could represent a bronchogenic carcinoma. There are patchy lucencies visible throughout both lungs suggestive of centrilobular emphysema. Incidental note is made of a right-sided Bochdalek hernia. There is also small left-sided Bochdalek hernia. Normal pleura. Normal chest wall structures. The bones are osteopenic. There appear to be sequela of old left-sided rib fractures. There may be sequela of old sternal fracture. There is multilevel thoracic spondylosis. There is a large partially imaged right-sided renal cysts measuring approximately 4.6 cm in greatest dimension. There is a small hiatal hernia. CT/CTA Chest W/WO Contrast IMPRESSION: 1. No CTA demonstrated pulmonary embolism or arterial dissection. 2. Spiculated left upper lobe mass likely represents a bronchogenic carcinoma. 3. COPD. 4. Right-sided renal cyst. Electronically Signed: Guera Meyers MD at 2:34 EDT , Service support ,
[2017-10-09] MEDS: morphine (oral solution) 10MG/0.5ML Syringe 10 MG PO ×6 (01:41→23:00)
[2017-10-09] MEDS: LORazepam 0.5 MG Tablet PO ×6 (01:41→23:00)
[2017-10-09] MEDS: Ipratropium/Albuterol Sulfate 3 ML AMPUL.NEB INHALATION ×6 (02:09→23:14)
[2017-10-09 07:01] LABS: Absolute Lymphocyte Count 0.42 X10^3/ul (0.83-4.51); Absolute Neutrophil Count 7.6 X10^3/uL (2.0-7.7); Hematocrit 34.8 % (40-54); Hemoglobin 11.1 g/dl (13.0-16.5); Lymphocyte # 0.42 X10^3/ul (4.0); Lymphocyte % 5.2 % (19-41); Mean Corp Hgb Conc 31.9 g/gl (32-36); Mean Corpuscular Hgb 29.3 pg (27.0-32.0); Mean Corpuscular Volume 91.8 fL (80-94); Mean Platelet Vol. 10.1 fl (6.2-12.0); Monocyte# 0.13 X10^3/uL; Monocyte% 1.6 % (0-10); Neutrophil # 7.55 X10^3/uL (2.7-7.7); Neutrophil % 93.1 % (47-70); POSITIVE COUNT NO; POSITIVE DIFFERENTIAL YES; POSITIVE MORPHOLOGY NO; Platelet Count 195 K/mm3 (150-450); RBC Distribution Width CV 13.6 % (11.6-14.6); RBC Distribution Width SD 45.5 fl (35.1-43.9); Red Blood Count 3.79 M/mm3 (4.6-6.2); White Blood Count 8.1 K/mm3 (4.4-11.0)
[2017-10-09 07:02] LABS: Differential Indicated SCAN CRITERIA MET
[2017-10-09 07:17] LABS: ALB/GLOB Ratio 0.8 RATIO (0.9-2.4); AST(SGOT) 17 U/L (15-37); Alanine Aminotransfer ALT/SGPT 29 U/L (16-61); Albumin, Serum 2.8 g/dL (3.2-5.0); Alkaline Phosphatase 137 U/L (45-117); Anion Gap 8 (5-15); BUN 20 mg/dL (7-18); BUN/Creat Ratio 18.3 RATIO (10-20); Calcium,Total 8.3 mg/dL (8.5-10.1); Chloride 107 mmol/L (98-107); Creatinine, Serum 1.09 mg/dL (0.70-1.30); EST Glomerular Filtration Rate 73 mL/min (>60); Est Glom Filt Rate - Afr Amer 88 mL/min (>60); Estimated Creatinine Clearance 73.48 ml/min; Globulin 3.3 g/dL (2.2-4.2); Glucose 150 mg/dL (74-106); Potassium 4.9 mmol/L (3.5-5.1); Protein, Total 6.1 g/dL (6.4-8.2); Sodium Level 143 mmol/L (136-145)
[2017-10-09] MEDS: oxyCODONE 5 MG Tablet 10 MG PO ×3 (07:33→19:44)
[2017-10-09] MEDS: Ferrous Sulfate 325 MG Tablet PO (08:12)
[2017-10-09] MEDS: Folic Acid 1 MG Tablet PO (08:12)
[2017-10-09] MEDS: Enoxaparin 40 MG/0.4 ML Syringe SC (08:12)
--- NOTE | 2017-10-09 08:23 | PCM.PN.HOSP ---
Patient Problems: Active and Suspected Problems (Last Reviewed 08/16/17 @ 18:42 by Erin Ortiz NP-C) Lung mass (Acute) COPD exacerbation (Acute) Chronic pain (Acute) Subjective: Patient is a 61-year-old gentleman with history of chronic hypoxic respiratory failure on baseline home O2 who presented with shortness of breath and assessment of COPD with acute exacerbation was made admitted to regular nursing floor for subsequent management Objective: GENERAL: cooperative HEENT: Clear conjunctiva, moist oral mucosa NECK; supple, normal thyroid, no distended JVD. CHEST: Diminished to auscultation bilaterally, HEART: Regular S1 S2, no audible murmurs ABDOMEN: soft, non-tender, normoactive bowel sounds, RECTAL: deferred EXTREMITIES: No edema, no clubbing, no cyanosis. [employer]: Awake; no lateralizing signs. SKIN: No Rash Vitals/I&O's: Vital Signs Temp Pulse Resp BP Pulse Ox 97.8 F 85 18 142/78 H 95 10/09/17 04:07 10/09/17 07:45 10/09/17 06:40 10/09/17 04:07 10/09/17 06:40 Oxygen Flow Rate (L/min) 1 Oxygen Delivery Method Nasal Cannula Weight: 78.4 kg Body Mass Index (BMI) 24.7 Intake and Output for Last 24 Hours 10/07/17 10/08/17 10/09/17 23:59 23:59 23:59 Intake Total 2499 / 2499 Output Total 1700 / 1700 Balance 799 / 799 Microbiology Past 72 Hours 10/08/17 23:40 Mucosa - Nose Influenza Types A,B Direct FA (ROSHNI) - Final Laboratory Results 10/08/17 23:25: D-Dimer Quant (PE/DVT) 0.84 H* 10/09/17 06:43: WBC 8.1, RBC 3.79 L, Hgb 11.1 L, Hct 34.8 L, MCV 91.8, MCH 29.3, MCHC 31.9 L, RDW 13.6, RDW Differential 45.5 H, Plt Count 195, MPV 10.1, Immature Gran % (Auto) 0.100, Neut % (Auto) 93.1 H, Lymph % (Auto) 5.2 L, [place] % (Auto) 1.6, Eos % (Auto) 0.0, Baso % (Auto) 0.0, Absolute Neuts (auto) 7.6, Absolute Lymphs (auto) 0.42 L, Total Counted Not Reportable, Differential Comment 10/09/17 06:43: Sodium 143, Potassium 4.9, Chloride 107, Carbon Dioxide 28.0, Anion Gap 8, BUN 20 H, Creatinine 1.09, Estim Creat Clear Calc 73.48, Est GFR (MDRD) Af Amer 88, Est GFR (MDRD) Non-Af 73, BUN/Creatinine Ratio 18.3, Glucose 150 H, Calcium 8.3 L, Total Bilirubin 0.40, AST 17, ALT 29, Alkaline Phosphatase 137 H, Total Protein 6.1 L, Albumin 2.8 L, Globulin 3.3, Albumin/Globulin Ratio 0.8 L Current Medications Albuterol Sulfate (Ventolin Aerosols) 2.5 mg INHALATION Q2H PRN PRN PRN Reason: SHORTNESS OF BREATH, wheezing Albuterol/Ipratropium (Duoneb) 3 ml INHALATION Q4H.RT [facility] Last Admin: 10/09/17 06:40 Dose: 3 ml Azithromycin (Zithromax) 500 mg PO DAILY [facility] Stop: 10/10/17 10:01 Cyanocobalamin (Vitamin B12) 1,000 mcg SC Q30D [facility] Enoxaparin Sodium (Lovenox) 40 mg SC DAILY [facility] Last Admin: 10/09/17 08:12 Dose: 40 mg Ergocalciferol (Vitamin D) 50,000 unit PO MO [facility] Last Admin: 10/09/17 08:12 Dose: 50,000 unit Ferrous Sulfate (Ferrous Sulfate) 325 mg PO DAILY@0800 [facility] Last Admin: 10/09/17 08:12 Dose: 325 mg Folic Acid (Folic Acid) 1 mg PO DAILY@0800 [facility] Last Admin: 10/09/17 08:12 Dose: 1 mg Guaifenesin (Robitussin Dm) 20 ml PO Q4H PRN PRN Reason: COUGH Sodium Chloride () 1,000 mls @ 150 mls/hr IV .Q6H40M [facility] Last Admin: 10/08/17 23:55 Dose: 150 mls/hr Lorazepam (Ativan) 0.5 mg PO Q4H PRN PRN PRN Reason: ANXIETY Last Admin: 10/09/17 05:57 Dose: 0.5 mg Methadone HCl () 5 mg PO DAILY [facility] Last Admin: 10/09/17 08:16 Dose: 5 mg Methylprednisolone (Solu-Medrol) 40 mg IV Q8 [facility] Stop: 10/10/17 06:01 Last Admin: 10/09/17 05:58 Dose: 40 mg Morphine Sulfate (Roxanol (Ir Oral Solution)) 10 mg PO Q4H PRN PRN PRN Reason: SOB &/OR WHEEZING Last Admin: 10/09/17 05:58 Dose: 10 mg Naproxen (Naprosyn) 250 mg PO BID PRN PRN PRN Reason: PAIN Nutritional Formula (Lactose Free) (Ensure Enlive) 120 ml PO 4X/DAY [facility] Last Admin: 10/09/17 08:15 Dose: 120 ml Oxycodone HCl (Oxyir) 10 mg PO Q6H PRN PRN PRN Reason: PAIN Last Admin: 10/09/17 07:33 Dose: 10 mg Prednisone () 20 mg PO DAILY@0800 [facility] Sodium Chloride () 10 - 40 ml IV UD PRN PRN Reason: MULTILUMEN/HICMAN CATH FLUSH Last Admin: 10/09/17 07:34 Dose: 10 ml Medical Necessity - Tobacco Use Smoking Status: Never smoker Tobacco Use: Cigarettes Assessment/Plan Active and Suspected Problems (Last Reviewed 08/16/17 @ 18:42 by Erin Ortiz NP-C) Lung mass (Acute) COPD exacerbation (Acute) Chronic pain (Acute) Patient is a 61-year-old gentleman with history of chronic hypoxic respiratory failure on baseline home O2 who presented with shortness of breath and assessment of COPD with acute exacerbation was made admitted to regular nursing floor for subsequent management 1. COPD with acute exacerbation patient has been admitted to regular nursing floor managed with systemic rights, antibiotics with Zithromax in addition to bronchodilator treatment 2. Chronic hypoxic respiratory failure secondary to COPD patient is on baseline 3 L of oxygen at home 3. Spiculated left upper lobe mass likely represents a bronchogenic carcinoma. Consultation was placed to pulmonary medicine 4. Diabetes mellitus type 2 diet controlled 5. Obstructive colitis with previous history of ileostomy 6. Chronic narcotic dependence patient is on methadone 7. DVT prophylaxis; enoxaparin Active Medications Albuterol Sulfate (Ventolin Aerosols) 2.5 mg INHALATION Q2H PRN PRN PRN Reason: SHORTNESS OF BREATH, wheezing Albuterol/Ipratropium (Duoneb) 3 ml INHALATION Q4H.RT [facility] Last Admin: 10/09/17 06:40 Dose: 3 ml Azithromycin (Zithromax) 500 mg PO DAILY [facility] Stop: 10/10/17 10:01 Cyanocobalamin (Vitamin B12) 1,000 mcg SC Q30D [facility] Enoxaparin Sodium (Lovenox) 40 mg SC DAILY [facility] Last Admin: 10/09/17 08:12 Dose: 40 mg Ergocalciferol (Vitamin D) 50,000 unit PO MO [facility] Last Admin: 10/09/17 08:12 Dose: 50,000 unit Ferrous Sulfate (Ferrous Sulfate) 325 mg PO DAILY@0800 [facility] Last Admin: 10/09/17 08:12 Dose: 325 mg Folic Acid (Folic Acid) 1 mg PO DAILY@0800 [facility] Last Admin: 10/09/17 08:12 Dose: 1 mg Guaifenesin (Robitussin Dm) 20 ml PO Q4H PRN PRN Reason: COUGH Sodium Chloride () 1,000 mls @ 150 mls/hr IV .Q6H40M [facility] Last Admin: 10/08/17 23:55 Dose: 150 mls/hr Lorazepam (Ativan) 0.5 mg PO Q4H PRN PRN PRN Reason: ANXIETY Last Admin: 10/09/17 05:57 Dose: 0.5 mg Methadone HCl () 5 mg PO DAILY [facility] Last Admin: 10/09/17 08:16 Dose: 5 mg Methylprednisolone (Solu-Medrol) 40 mg IV Q8 [facility] Stop: 10/10/17 06:01 Last Admin: 10/09/17 05:58 Dose: 40 mg Morphine Sulfate (Roxanol (Ir Oral Solution)) 10 mg PO Q4H PRN PRN PRN Reason: SOB &/OR WHEEZING Last Admin: 10/09/17 05:58 Dose: 10 mg Naproxen (Naprosyn) 250 mg PO BID PRN PRN PRN Reason: PAIN Nutritional Formula (Lactose Free) (Ensure Enlive) 120 ml PO 4X/DAY [facility] Last Admin: 10/09/17 08:15 Dose: 120 ml Oxycodone HCl (Oxyir) 10 mg PO Q6H PRN PRN PRN Reason: PAIN Last Admin: 10/09/17 07:33 Dose: 10 mg Prednisone () 20 mg PO DAILY@0800 [facility] Sodium Chloride () 10 - 40 ml IV UD PRN PRN Reason: MULTILUMEN/HICMAN CATH FLUSH Last Admin: 10/09/17 07:34 Dose: 10 ml Clinical Impression(s) from Imaging Studies Abdomen/Pelvis CT 10/08/17 18:56 IMPRESSION: No acute abdominal or pelvic pathology demonstrated on this noncontrast CT. Stable postsurgical changes from a colectomy with a left lower quadrant ileostomy placed. Electronically Signed: Dl Quinonez, at 20:51 EDT Tel , Service support , Chest X-Ray 10/08/17 19:20 IMPRESSION: 1. The lung bases are not visible on this study. 2. Questionable left-sided pulmonary nodules. 3. COPD. Electronically Signed: Guera Meyers MD at 19:47 EDT , Service support , Chest CTA 10/09/17 00:29 IMPRESSION: 1. No CTA demonstrated pulmonary embolism or arterial dissection. 2. Spiculated left upper lobe mass likely represents a bronchogenic carcinoma. 3. COPD. 4. Right-sided renal cyst. Electronically Signed: Guera Meyers MD at 2:34 EDT , Service support , Code Visit Inpatient E&M: 79592 Subs Hosp L3
--- NOTE | 2017-10-09 08:29 | PN_ITS ---
Patient Problems: Active and Suspected Problems (Last Reviewed 08/16/17 @ 18:42 by Erin Ortiz NP-C) Lung mass (Acute) COPD exacerbation (Acute) Chronic pain (Acute) Subjective: Patient is a 61-year-old gentleman with history of chronic hypoxic respiratory failure on baseline home O2 who presented with shortness of breath and assessment of COPD with acute exacerbation was made admitted to regular nursing floor for subsequent management Objective: GENERAL: cooperative HEENT: Clear conjunctiva, moist oral mucosa NECK; supple, normal thyroid, no distended JVD. CHEST: Diminished to auscultation bilaterally, HEART: Regular S1 S2, no audible murmurs ABDOMEN: soft, non-tender, normoactive bowel sounds, RECTAL: deferred EXTREMITIES: No edema, no clubbing, no cyanosis. STRUCTURAL TEST ENGINEER: Awake; no lateralizing signs. SKIN: No Rash Vitals/I&O's: Vital Signs Temp Pulse Resp BP Pulse Ox 97.8 F 85 18 142/78 H 95 10/09/17 04:07 10/09/17 07:45 10/09/17 06:40 10/09/17 04:07 10/09/17 06:40 Oxygen Flow Rate (L/min) 1 Oxygen Delivery Method Nasal Cannula Weight: 78.4 kg Body Mass Index (BMI) 24.7 Intake and Output for Last 24 Hours 10/07/17 10/08/17 10/09/17 23:59 23:59 23:59 Intake Total 2499 / 2499 Output Total 1700 / 1700 Balance 799 / 799 Microbiology Past 72 Hours 10/08/17 23:40 Mucosa - Nose Influenza Types A,B Direct FA (ROSHNI) - Final Laboratory Results 10/08/17 23:25: D-Dimer Quant (PE/DVT) 0.84 H* 10/09/17 06:43: WBC 8.1, RBC 3.79 L, Hgb 11.1 L, Hct 34.8 L, MCV 91.8, MCH 29.3 , MCHC 31.9 L, RDW 13.6, RDW Differential 45.5 H, Plt Count 195, MPV 10.1, Immature Gran % (Auto) 0.100, Neut % (Auto) 93.1 H, Lymph % (Auto) 5.2 L, [place] % (Auto) 1.6, Eos % (Auto) 0.0, Baso % (Auto) 0.0, Absolute Neuts (auto) 7.6, Absolute Lymphs (auto) 0.42 L, Total Counted Not Reportable, Differential Comment 10/09/17 06:43: Sodium 143, Potassium 4.9, Chloride 107, Carbon Dioxide 28.0, Anion Gap 8, BUN 20 H, Creatinine 1.09, Estim Creat Clear Calc 73.48, Est GFR ( MDRD) Af Amer 88, Est GFR (MDRD) Non-Af 73, BUN/Creatinine Ratio 18.3, Glucose 150 H, Calcium 8.3 L, Total Bilirubin 0.40, AST 17, ALT 29, Alkaline Phosphatase 137 H, Total Protein 6.1 L, Albumin 2.8 L, Globulin 3.3, Albumin/ Globulin Ratio 0.8 L Current Medications Albuterol Sulfate (Ventolin Aerosols) 2.5 mg INHALATION Q2H PRN PRN PRN Reason: SHORTNESS OF BREATH, wheezing Albuterol/Ipratropium (Duoneb) 3 ml INHALATION Q4H.RT [facility] Last Admin: 10/09/17 06:40 Dose: 3 ml Azithromycin (Zithromax) 500 mg PO DAILY [facility] Stop: 10/10/17 10:01 Cyanocobalamin (Vitamin B12) 1,000 mcg SC Q30D [facility] Enoxaparin Sodium (Lovenox) 40 mg SC DAILY [facility] Last Admin: 10/09/17 08:12 Dose: 40 mg Ergocalciferol (Vitamin D) 50,000 unit PO MO [facility] Last Admin: 10/09/17 08:12 Dose: 50,000 unit Ferrous Sulfate (Ferrous Sulfate) 325 mg PO DAILY@0800 [facility] Last Admin: 10/09/17 08:12 Dose: 325 mg Folic Acid (Folic Acid) 1 mg PO DAILY@0800 [facility] Last Admin: 10/09/17 08:12 Dose: 1 mg Guaifenesin (Robitussin Dm) 20 ml PO Q4H PRN PRN Reason: COUGH Sodium Chloride () 1,000 mls @ 150 mls/hr IV .Q6H40M [facility] Last Admin: 10/08/17 23:55 Dose: 150 mls/hr Lorazepam (Ativan) 0.5 mg PO Q4H PRN PRN PRN Reason: ANXIETY Last Admin: 10/09/17 05:57 Dose: 0.5 mg Methadone HCl () 5 mg PO DAILY [facility] Last Admin: 10/09/17 08:16 Dose: 5 mg Methylprednisolone (Solu-Medrol) 40 mg IV Q8 [facility] Stop: 10/10/17 06:01 Last Admin: 10/09/17 05:58 Dose: 40 mg Morphine Sulfate (Roxanol (Ir Oral Solution)) 10 mg PO Q4H PRN PRN PRN Reason: SOB &/OR WHEEZING Last Admin: 10/09/17 05:58 Dose: 10 mg Naproxen (Naprosyn) 250 mg PO BID PRN PRN PRN Reason: PAIN Nutritional Formula (Lactose Free) (Ensure Enlive) 120 ml PO 4X/DAY [facility] Last Admin: 10/09/17 08:15 Dose: 120 ml Oxycodone HCl (Oxyir) 10 mg PO Q6H PRN PRN PRN Reason: PAIN Last Admin: 10/09/17 07:33 Dose: 10 mg Prednisone () 20 mg PO DAILY@0800 [facility] Sodium Chloride () 10 - 40 ml IV UD PRN PRN Reason: MULTILUMEN/HICMAN CATH FLUSH Last Admin: 10/09/17 07:34 Dose: 10 ml Medical Necessity - Tobacco Use Smoking Status: Never smoker Tobacco Use: Cigarettes Assessment/Plan Active and Suspected Problems (Last Reviewed 08/16/17 @ 18:42 by Erin Ortiz NP-C) Lung mass (Acute) COPD exacerbation (Acute) Chronic pain (Acute) Patient is a 61-year-old gentleman with history of chronic hypoxic respiratory failure on baseline home O2 who presented with shortness of breath and assessment of COPD with acute exacerbation was made admitted to regular nursing floor for subsequent management 1. COPD with acute exacerbation patient has been admitted to regular nursing floor managed with systemic rights, antibiotics with Zithromax in addition to bronchodilator treatment 2. Chronic hypoxic respiratory failure secondary to COPD patient is on baseline 3 L of oxygen at home 3. Spiculated left upper lobe mass likely represents a bronchogenic carcinoma. Consultation was placed to pulmonary medicine 4. Diabetes mellitus type 2 diet controlled 5. Obstructive colitis with previous history of ileostomy 6. Chronic narcotic dependence patient is on methadone 7. DVT prophylaxis; enoxaparin Active Medications Albuterol Sulfate (Ventolin Aerosols) 2.5 mg INHALATION Q2H PRN PRN PRN Reason: SHORTNESS OF BREATH, wheezing Albuterol/Ipratropium (Duoneb) 3 ml INHALATION Q4H.RT [facility] Last Admin: 10/09/17 06:40 Dose: 3 ml Azithromycin (Zithromax) 500 mg PO DAILY [facility] Stop: 10/10/17 10:01 Cyanocobalamin (Vitamin B12) 1,000 mcg SC Q30D [facility] Enoxaparin Sodium (Lovenox) 40 mg SC DAILY [facility] Last Admin: 10/09/17 08:12 Dose: 40 mg Ergocalciferol (Vitamin D) 50,000 unit PO MO [facility] Last Admin: 10/09/17 08:12 Dose: 50,000 unit Ferrous Sulfate (Ferrous Sulfate) 325 mg PO DAILY@0800 [facility] Last Admin: 10/09/17 08:12 Dose: 325 mg Folic Acid (Folic Acid) 1 mg PO DAILY@0800 [facility] Last Admin: 10/09/17 08:12 Dose: 1 mg Guaifenesin (Robitussin Dm) 20 ml PO Q4H PRN PRN Reason: COUGH Sodium Chloride () 1,000 mls @ 150 mls/hr IV .Q6H40M [facility] Last Admin: 10/08/17 23:55 Dose: 150 mls/hr Lorazepam (Ativan) 0.5 mg PO Q4H PRN PRN PRN Reason: ANXIETY Last Admin: 10/09/17 05:57 Dose: 0.5 mg Methadone HCl () 5 mg PO DAILY [facility] Last Admin: 10/09/17 08:16 Dose: 5 mg Methylprednisolone (Solu-Medrol) 40 mg IV Q8 [facility] Stop: 10/10/17 06:01 Last Admin: 10/09/17 05:58 Dose: 40 mg Morphine Sulfate (Roxanol (Ir Oral Solution)) 10 mg PO Q4H PRN PRN PRN Reason: SOB &/OR WHEEZING Last Admin: 10/09/17 05:58 Dose: 10 mg Naproxen (Naprosyn) 250 mg PO BID PRN PRN PRN Reason: PAIN Nutritional Formula (Lactose Free) (Ensure Enlive) 120 ml PO 4X/DAY [facility] Last Admin: 10/09/17 08:15 Dose: 120 ml Oxycodone HCl (Oxyir) 10 mg PO Q6H PRN PRN PRN Reason: PAIN Last Admin: 10/09/17 07:33 Dose: 10 mg Prednisone () 20 mg PO DAILY@0800 [facility] Sodium Chloride () 10 - 40 ml IV UD PRN PRN Reason: MULTILUMEN/HICMAN CATH FLUSH Last Admin: 10/09/17 07:34 Dose: 10 ml Clinical Impression(s) from Imaging Studies Abdomen/Pelvis CT 10/08/17 18:56 IMPRESSION: No acute abdominal or pelvic pathology demonstrated on this noncontrast CT. Stable postsurgical changes from a colectomy with a left lower quadrant ileostomy placed. Electronically Signed: Dl Quinonez, at 20:51 EDT Tel , Service support , Chest X-Ray 10/08/17 19:20 IMPRESSION: 1. The lung bases are not visible on this study. 2. Questionable left-sided pulmonary nodules. 3. COPD. Electronically Signed: Guera Meyers MD at 19:47 EDT , Service support , Chest CTA 10/09/17 00:29 IMPRESSION: 1. No CTA demonstrated pulmonary embolism or arterial dissection. 2. Spiculated left upper lobe mass likely represents a bronchogenic carcinoma. 3. COPD. 4. Right-sided renal cyst. Electronically Signed: Guera Meyers MD at 2:34 EDT , Service support , Code Visit Inpatient E&M: [id number] Subs Hosp L3
--- NOTE | 2017-10-09 08:38 | PCM.CONS.GEN ---
Problem List (1) Lung mass Status: Acute (2) Chronic pain Status: Chronic (3) Stage 4 very severe COPD by GOLD classification Status: Chronic (4) Tobacco dependence in remission Status: Chronic (5) Iron deficiency anemia Status: Chronic (6) Chronic respiratory failure with hypoxia Status: Chronic (7) Protein malnutrition Status: Chronic (8) Anxiety Status: Chronic (9) Diabetes type 2, controlled Status: Chronic (10) Narcotic dependence Status: Chronic (11) History of total colectomy Status: Chronic (12) Ulcerative colitis Status: Chronic Comment: sp colectomy 1989; sp ileostomy Reason for Consult Date of Consultation: 10/09/17 Reason for Consultation: lung mass History of Present Illness: The patient is a 61 year old M well-known to the pulmonary clinic and patient of Dr. Simons's, past medical history as below, presented to the ED on 10/08/17 with complaints of left flank pain and increased shortness of breath for the past 24 hours. Denied any fever but maybe had some chills. No recent sick contacts. Denies any increase in cough, no sputum production, no nausea, vomiting, or diarrhea. Denies any hemoptysis, dizziness, or syncope. Any chest pain or tightness. He does complain of chronic postnasal drip and was placed on fluticasone a few months ago, however he is no longer taking. He does have an ileostomy and administers daily TPN. Chest x-ray showed hyperaerated lungs, no acute pleural abnormality. Right-sided port visible. D-dimer was elevated so CTA of the chest was obtained, showed no PE or dissection, there was a spiculated left upper lobe mass measuring approximately 2.5 cm in size and small left-sided Bochdalek hernia. CT of the abdomen/pelvis showed no acute pathology. Blood work revealed a normal white count, hemoglobin 11.7 (chronic), unremarkable chemistry. UA was negative for infection. Influenza screening was normal. EKG normal sinus rhythm. Patient received aerosols, Reglan, Benadryl, Toradol, steroids, and was placed on BiPAP secondary to acute respiratory distress with accessory muscle use. BiPAP was effective in flank pain resolved with medications. He was admitted to the medical surgical floor for further management. Pulmonary was consulted for lung mass. A CTA of the chest in January 2017 did not show the mass in question. Patient does have extensive emphysema and bullous changes in the upper lobes. Patient is on max pulmonary toileting, including compliance with noninvasive ventilation with Trilogy. Baseline medications include albuterol as needed, fluticasone, guaifenesin, methadone, morphine liquid used with breathing treatments, OxyFast, prednisone 10 mg, and Trelegy. Patient follows with Palliative care. He was recently increased from 2 to 3 L of oxygen supplementation continuously at home. He no longer smokes cigarettes but does smoke marijuana. He is participating in cardiac/pulmonary rehab. Past Medical History Past Medical History (Chronic Problems): Chronic Problems (Last Reviewed 08/16/17 @ 18:42 by Erin Ortiz NP-C) Chronic pain (Chronic) Stage 4 very severe COPD by GOLD classification (Chronic) Tobacco dependence in remission (Chronic) Iron deficiency anemia (Chronic) Chronic respiratory failure with hypoxia (Chronic) Protein malnutrition (Chronic) Anxiety (Chronic) Dysphagia (Chronic) Diabetes type 2, controlled (Chronic) Narcotic dependence (Chronic) History of total colectomy (Chronic) Ileostomy present (Chronic) COPD (chronic obstructive pulmonary disease) (Chronic) Ulcerative colitis (Chronic) sp colectomy 1989; sp ileostomy Allergies sulfamethoxazole [From Bactrim] Allergy (Verified 10/08/17 18:28) Rash trimethoprim [From Bactrim] Allergy (Verified 10/08/17 18:28) Rash Home Medications: Ambulatory Orders Medication Instructions Recorded Albuterol Inhaler [Ventolin Hfa] 2 puff INHALATION Q4H PRN PRN 01/25/17 Cyanocobalamin [Vitamin B12] 1,000 mcg SC Q30D 01/25/17 Ergocalciferol [Vitamin D] 50,000 unit PO MO 01/25/17 Ferrous Sulfate 325 mg PO DAILY@0800 01/25/17 Folic Acid 1 mg PO DAILY@0800 01/25/17 Naproxen 1 tab PO BID PRN 04/25/17 Albuterol Aerosols [Ventolin 2.5 mg INHALATION Q2H PRN PRN #1 04/27/17 Aerosols] box fluticasone 100 mcg-umeclid 62.5 1 inh INHALATION QDAY #60 ea 06/05/17 mcg-vilant 25 mcg powd for inhalation Morphine Liquid 10 mg PO Q4H PRN 07/31/17 prednisone 10 mg tablet 10 mg PO QDAY #30 tab 07/31/17 fluticasone 50 mcg/actuation nasal 2 spray INTRANASAL QDAY #16 g 08/16/17 spray,suspension Guaifenesin/Dextromethorphan 20 ml PO Q4H PRN 10/08/17 [Guaifenesin Dm Syrup] Lorazepam [Ativan] 0.5 mg PO Q4H PRN 10/08/17 Methadone HCl [Methadone Oral 0.5 ml PO DAILY 10/08/17 Concentrate] Oxycodone [Oxyfast] 10 mg PO Q6H PRN 10/08/17 Surgical History: cholecystectomy, colectomy - 1989 with ileostomy, - - recent ileostomy revision, hernia repair 01/2016, mulitple bowel surgery with removal of some colon Psychiatric History: Anxiety, Depression Lives: Alone Smoking Status: Former smoker Tobacco Use: Cigarettes Alcohol: None Drugs: Marijuana - *Family History Paternal History Items: Heart Disease Maternal History Items: COPD, Hypertension Review of Systems Constitutional: Reports: Chills, Fatigue. Denies: Anorexia, Fever, Night Sweats, Malaise, Weakness, Weight Change Eyes: Denies: Vision Change HEENT: Reports: Head Aches, Post Nasal Drip. Denies: Difficulty Swallowing, Nasal bleeding, Nasal Congestion, Sinus Congestion, Sinus Drainage, Sore Throat Cardiovascular: Reports: Orthopnea. Denies: Chest Pain, Chest Pressure, Chest Tightness, Edema, Light Headedness, Palpitations, Paroxysmal Noc. Dyspnea, Syncope Respiratory: Reports: Shortness of breath upon exertion. Denies: Cough, Hemoptysis, Sputum production, Wheezing Gastrointestinal: Reports: - - Ileostomy, normal output for patient. Denies: Abdominal Pain, Constipation, Hematemesis, Hematochezia, Nausea, Melena Genitourinary: Denies: Dysuria, Frequency, Hematuria, Retention Musculoskeletal: Reports: Back Pain - Chronic. Denies: Muscle pain, Neck Pain Skin: Reports: Wounds - Right forearm abrasions from dog Neurological: Denies: Change in Speech, Confusion, Difficulty swallowing, Focal weakness, Tremor, Seizures Psychiatric: Reports: Anxiety, Depression. Denies: Homicidal Ideations, Suicidal Ideations Endocrine: Denies: Change in Body Habitus, Polydipsia, Polyuria Hematologic/ Lymphatic: Reports: Anemia, Easy Bruising, Easy Bleeding. Denies: Adenopathy, Hx of blood clot Patient Problems: Active and Suspected Problems (Last Reviewed 08/16/17 @ 18:42 by ABBE Jean) Lung mass (Acute) COPD exacerbation (Acute) Subjective: Patient was seen and examined. He is lying in bed and does not appear to be in any acute distress. He is wearing his baseline oxygen requirement of 3 L. He is calm and cooperative. Objective: Clinical Impression(s) from Imaging Studies Abdomen/Pelvis CT 10/08/17 18:56 IMPRESSION: No acute abdominal or pelvic pathology demonstrated on this noncontrast CT. Stable postsurgical changes from a colectomy with a left lower quadrant ileostomy placed. Electronically Signed: Dl Quinonez at 20:51 EDT Tel , Service support , Chest X-Ray 10/08/17 19:20 IMPRESSION: 1. The lung bases are not visible on this study. 2. Questionable left-sided pulmonary nodules. 3. COPD. Electronically Signed: Guera Meyers MD at 19:47 EDT , Service support , Chest CTA 10/09/17 00:29 IMPRESSION: 1. No CTA demonstrated pulmonary embolism or arterial dissection. 2. Spiculated left upper lobe mass likely represents a bronchogenic carcinoma. 3. COPD. 4. Right-sided renal cyst. Electronically Signed: Guera Meyers MD at 2:34 EDT , Service support , - Physical Exam General: Alert, Oriented x3, Cooperative, No apparent distress, - - No conversational dyspnea HEENT: Atraumatic, Normocephalic Oral: Moist Mucosa, No Gingival or Mucosal Lesions/ Ulcerations Neck: Supple, No Nodes, Trachea Midline Lungs: - - Very poor airflow throughout, no appreciable rhonchi, wheezes, or rales. Symmetric expansion, no dullness to percussion. No accessory muscle use. Cardiovascular: Regular rate, Regular Rhythm, Normal S1, Normal S2, No rub noted, No Gallop Abdomen: Bowel Sounds Present, Soft, Non Tender, - - ileostomy Extremities: No cyanosis, No edema, Clubbing Musculoskeletal: No Tenderness to Palpation of Joints or Extremities Lymphatic: No Cervical, Supraclavicular, or Inguinal Adenopathy Neurological: Cranial nerves II-XII grossly intact, Neuro grossly intact, Motor Exam 5/5 strength throughout Psych/Mental Status: Alert and oriented to time, place, person, mood and affect Vital Signs Temp Pulse Resp BP Pulse Ox 97.8 F 85 18 142/78 H 95 10/09/17 04:07 10/09/17 07:45 10/09/17 06:40 10/09/17 04:07 10/09/17 06:40 Oxygen Flow Rate (L/min) 1 Oxygen Delivery Method Nasal Cannula Weight: 172 lb 13.478 oz Body Mass Index (BMI) 24.7 Intake and Output for Last 24 Hours 10/07/17 10/08/17 10/09/17 23:59 23:59 23:59 Intake Total 2499 / 2499 Output Total 1700 / 1700 Balance 799 / 799 Microbiology Past 72 Hours 10/08/17 23:40 Influenza Types A,B Direct FA (ROSHNI) - Final Mucosa - Nose Laboratory Tests Past 24 Hrs 10/08/17 10/09/17 10/09/17 23:25 06:43 06:43 WBC 8.1 RBC 3.79 L Hgb 11.1 L Hct 34.8 L MCV 91.8 MCH 29.3 MCHC 31.9 L RDW 13.6 RDW Differential 45.5 H Plt Count 195 MPV 10.1 Immature Gran % (Auto) 0.100 Neut % (Auto) 93.1 H Lymph % (Auto) 5.2 L [place] % (Auto) 1.6 Eos % (Auto) 0.0 Baso % (Auto) 0.0 Absolute Neuts (auto) 7.6 Absolute Lymphs (auto) 0.42 L Total Counted Not Reportable Differential Comment D-Dimer Quant (PE/DVT) 0.84 H* Sodium 143 Potassium 4.9 Chloride 107 Carbon Dioxide 28.0 Anion Gap 8 BUN 20 H Creatinine 1.09 Estim Creat Clear Calc 73.48 Est GFR (MDRD) Af Amer 88 Est GFR (MDRD) Non-Af 73 BUN/Creatinine Ratio 18.3 Glucose 150 H Calcium 8.3 L Total Bilirubin 0.40 AST 17 ALT 29 Alkaline Phosphatase 137 H Total Protein 6.1 L Albumin 2.8 L Globulin 3.3 Albumin/Globulin Ratio 0.8 L Assessment/Plan Active and Suspected Problems (Last Reviewed 08/16/17 @ 18:42 by Erin Ortiz NP-C) Lung mass (Acute) COPD exacerbation (Acute) RECOMMENDATIONS 1. Wean oxygen supplementation to keep saturations 88-92%. 2. Encourage incentive spirometer. 3. Increase activity as tolerated. 4. Continue aerosols. Likely okay to discontinue antibiotics. 5. IV steroids likely not needed, would resume baseline prednisone 10 mg. 6. BiPAP at night. 7. Ambulatory pulse ox prior to discharge. 8. Patient can follow-up in pulmonary clinic within 2 weeks, at which time patient can pursue CT-guided biopsy for questionable lung mass if he chooses to have this evaluated. 9. If patient decides not to follow through with CT-guided biopsy today, can be discharged home from pulmonary perspective. IMPRESSIONS 1. Left upper lobe lung mass New finding, not observed on CT of the chest in January 2017. Patient does have smoking history/risk factors for carcinoma. Patient does not wish to decide on a CT-guided lung biopsy at this time, he will think about it and let us know in a day or 2. This can be followed up with as an outpatient. Please schedule appointment in the pulmonary clinic within 2 weeks with APPLICATION DEVELOPMENT DIRECTOR. 2. Shortness of breath/end-stage COPD/chronic respiratory failure Patient does not appear to be an acute exacerbation at this time. He has very poor airflow and no wheezing, however no increase in cough, sputum production, no fevers. Patient maintaining appropriate saturations on chronic 3 L. He has been compliant with his Trilogy and baseline inhaler regimen at home and has been receiving palliative care. Likely okay to discontinue antibiotics and IV steroids, placed back on baseline 10 mg of prednisone. Patient can be on Pulmicort as well until discharged. 3. Anxiety/chronic pain/postnasal drip/diabetes/malnutrition/narcotic dependence Complicates care, management, recovery, and prognosis. Continue home medications as indicated. Thank you for the opportunity to participate in this patient's care, please do not hesitate contact us with any further questions or concerns. This note was generated with Dragon dictation software. It may contain incorrect words, spelling, and punctuation that were not noted in checking the note before signing.
[2017-10-09] MEDS: 0.9% Normal Saline 1,000 ML 150 ML IV (08:50)
[2017-10-09] MEDS: guaiFENesin Dm 10 ML UDC 20 ML PO ×3 (08:51→20:41)
--- NOTE | 2017-10-09 08:52 | CON.PCM_ITS ---
Problem List (1) Lung mass Status: Acute (2) Chronic pain Status: Chronic (3) Stage 4 very severe COPD by GOLD classification Status: Chronic (4) Tobacco dependence in remission Status: Chronic (5) Iron deficiency anemia Status: Chronic (6) Chronic respiratory failure with hypoxia Status: Chronic (7) Protein malnutrition Status: Chronic (8) Anxiety Status: Chronic (9) Diabetes type 2, controlled Status: Chronic (10) Narcotic dependence Status: Chronic (11) History of total colectomy Status: Chronic (12) Ulcerative colitis Status: Chronic Comment: sp colectomy 1989; sp ileostomy Reason for Consult Date of Consultation: 10/09/17 Reason for Consultation: lung mass History of Present Illness: The patient is a 61 year old M well-known to the pulmonary clinic and patient of Dr. Simons's, past medical history as below, presented to the ED on 10/08/17 with complaints of left flank pain and increased shortness of breath for the past 24 hours. Denied any fever but maybe had some chills. No recent sick contacts. Denies any increase in cough, no sputum production, no nausea, vomiting, or diarrhea. Denies any hemoptysis, dizziness, or syncope. Any chest pain or tightness. He does complain of chronic postnasal drip and was placed on fluticasone a few months ago, however he is no longer taking. He does have an ileostomy and administers daily TPN. Chest x-ray showed hyperaerated lungs, no acute pleural abnormality. Right-sided port visible. D- dimer was elevated so CTA of the chest was obtained, showed no PE or dissection , there was a spiculated left upper lobe mass measuring approximately 2.5 cm in size and small left-sided Bochdalek hernia. CT of the abdomen/pelvis showed no acute pathology. Blood work revealed a normal white count, hemoglobin 11.7 ( chronic), unremarkable chemistry. UA was negative for infection. Influenza screening was normal. EKG normal sinus rhythm. Patient received aerosols, Reglan, Benadryl, Toradol, steroids, and was placed on BiPAP secondary to acute respiratory distress with accessory muscle use. BiPAP was effective in flank pain resolved with medications. He was admitted to the medical surgical floor for further management. Pulmonary was consulted for lung mass. A CTA of the chest in January 2017 did not show the mass in question. Patient does have extensive emphysema and bullous changes in the upper lobes. Patient is on max pulmonary toileting, including compliance with noninvasive ventilation with Trilogy. Baseline medications include albuterol as needed, fluticasone, guaifenesin, methadone, morphine liquid used with breathing treatments, OxyFast, prednisone 10 mg, and Trelegy. Patient follows with Palliative care. He was recently increased from 2 to 3 L of oxygen supplementation continuously at home. He no longer smokes cigarettes but does smoke marijuana. He is participating in cardiac/pulmonary rehab. Past Medical History Past Medical History (Chronic Problems): Chronic Problems (Last Reviewed 08/16/17 @ 18:42 by Erin Ortiz NP-C) Chronic pain (Chronic) Stage 4 very severe COPD by GOLD classification (Chronic) Tobacco dependence in remission (Chronic) Iron deficiency anemia (Chronic) Chronic respiratory failure with hypoxia (Chronic) Protein malnutrition (Chronic) Anxiety (Chronic) Dysphagia (Chronic) Diabetes type 2, controlled (Chronic) Narcotic dependence (Chronic) History of total colectomy (Chronic) Ileostomy present (Chronic) COPD (chronic obstructive pulmonary disease) (Chronic) Ulcerative colitis (Chronic) sp colectomy 1989; sp ileostomy Allergies sulfamethoxazole [From Bactrim] Allergy (Verified 10/08/17 18:28) Rash trimethoprim [From Bactrim] Allergy (Verified 10/08/17 18:28) Rash Home Medications: Ambulatory Orders Medication Instructions Recorded Albuterol Inhaler [Ventolin Hfa] 2 puff INHALATION Q4H PRN PRN 01/25/17 Cyanocobalamin [Vitamin B12] 1,000 mcg SC Q30D 01/25/17 Ergocalciferol [Vitamin D] 50,000 unit PO MO 01/25/17 Ferrous Sulfate 325 mg PO DAILY@0800 01/25/17 Folic Acid 1 mg PO DAILY@0800 01/25/17 Naproxen 1 tab PO BID PRN 04/25/17 Albuterol Aerosols [Ventolin 2.5 mg INHALATION Q2H PRN PRN #1 04/27/17 Aerosols] box fluticasone 100 mcg-umeclid 62.5 1 inh INHALATION QDAY #60 ea 06/05/17 mcg-vilant 25 mcg powd for inhalation Morphine Liquid 10 mg PO Q4H PRN 07/31/17 prednisone 10 mg tablet 10 mg PO QDAY #30 tab 07/31/17 fluticasone 50 mcg/actuation nasal 2 spray INTRANASAL QDAY #16 g 08/16/17 spray,suspension Guaifenesin/Dextromethorphan 20 ml PO Q4H PRN 10/08/17 [Guaifenesin Dm Syrup] Lorazepam [Ativan] 0.5 mg PO Q4H PRN 10/08/17 Methadone HCl [Methadone Oral 0.5 ml PO DAILY 10/08/17 Concentrate] Oxycodone [Oxyfast] 10 mg PO Q6H PRN 10/08/17 Surgical History: cholecystectomy, colectomy - 1989 with ileostomy, - - recent ileostomy revision, hernia repair 01/2016, mulitple bowel surgery with removal of some colon Psychiatric History: Anxiety, Depression Lives: Alone Smoking Status: Former smoker Tobacco Use: Cigarettes Alcohol: None Drugs: Marijuana - *Family History Paternal History Items: Heart Disease Maternal History Items: COPD, Hypertension Review of Systems Constitutional: Reports: Chills, Fatigue. Denies: Anorexia, Fever, Night Sweats , Malaise, Weakness, Weight Change Eyes: Denies: Vision Change HEENT: Reports: Head Aches, Post Nasal Drip. Denies: Difficulty Swallowing, Nasal bleeding, Nasal Congestion, Sinus Congestion, Sinus Drainage, Sore Throat Cardiovascular: Reports: Orthopnea. Denies: Chest Pain, Chest Pressure, Chest Tightness, Edema, Light Headedness, Palpitations, Paroxysmal Noc. Dyspnea, Syncope Respiratory: Reports: Shortness of breath upon exertion. Denies: Cough, Hemoptysis, Sputum production, Wheezing Gastrointestinal: Reports: - - Ileostomy, normal output for patient. Denies: Abdominal Pain, Constipation, Hematemesis, Hematochezia, Nausea, Melena Genitourinary: Denies: Dysuria, Frequency, Hematuria, Retention Musculoskeletal: Reports: Back Pain - Chronic. Denies: Muscle pain, Neck Pain Skin: Reports: Wounds - Right forearm abrasions from dog Neurological: Denies: Change in Speech, Confusion, Difficulty swallowing, Focal weakness, Tremor, Seizures Psychiatric: Reports: Anxiety, Depression. Denies: Homicidal Ideations, Suicidal Ideations Endocrine: Denies: Change in Body Habitus, Polydipsia, Polyuria Hematologic/ Lymphatic: Reports: Anemia, Easy Bruising, Easy Bleeding. Denies: Adenopathy, Hx of blood clot Patient Problems: Active and Suspected Problems (Last Reviewed 08/16/17 @ 18:42 by ABBE Jean) Lung mass (Acute) COPD exacerbation (Acute) Subjective: Patient was seen and examined. He is lying in bed and does not appear to be in any acute distress. He is wearing his baseline oxygen requirement of 3 L. He is calm and cooperative. Objective: Clinical Impression(s) from Imaging Studies Abdomen/Pelvis CT 10/08/17 18:56 IMPRESSION: No acute abdominal or pelvic pathology demonstrated on this noncontrast CT. Stable postsurgical changes from a colectomy with a left lower quadrant ileostomy placed. Electronically Signed: Dl Quinonez at 20:51 EDT Tel , Service support , Chest X-Ray 10/08/17 19:20 IMPRESSION: 1. The lung bases are not visible on this study. 2. Questionable left-sided pulmonary nodules. 3. COPD. Electronically Signed: Guera Meyers MD at 19:47 EDT , Service support , Chest CTA 10/09/17 00:29 IMPRESSION: 1. No CTA demonstrated pulmonary embolism or arterial dissection. 2. Spiculated left upper lobe mass likely represents a bronchogenic carcinoma. 3. COPD. 4. Right-sided renal cyst. Electronically Signed: Guera Meyers MD at 2:34 EDT , Service support , - Physical Exam General: Alert, Oriented x3, Cooperative, No apparent distress, - - No conversational dyspnea HEENT: Atraumatic, Normocephalic Oral: Moist Mucosa, No Gingival or Mucosal Lesions/ Ulcerations Neck: Supple, No Nodes, Trachea Midline Lungs: - - Very poor airflow throughout, no appreciable rhonchi, wheezes, or rales. Symmetric expansion, no dullness to percussion. No accessory muscle use. Cardiovascular: Regular rate, Regular Rhythm, Normal S1, Normal S2, No rub noted , No Gallop Abdomen: Bowel Sounds Present, Soft, Non Tender, - - ileostomy Extremities: No cyanosis, No edema, Clubbing Musculoskeletal: No Tenderness to Palpation of Joints or Extremities Lymphatic: No Cervical, Supraclavicular, or Inguinal Adenopathy Neurological: Cranial nerves II-XII grossly intact, Neuro grossly intact, Motor Exam 5/5 strength throughout Psych/Mental Status: Alert and oriented to time, place, person, mood and affect Vital Signs Temp Pulse Resp BP Pulse Ox 97.8 F 85 18 142/78 H 95 10/09/17 04:07 10/09/17 07:45 10/09/17 06:40 10/09/17 04:07 10/09/17 06:40 Oxygen Flow Rate (L/min) 1 Oxygen Delivery Method Nasal Cannula Weight: 172 lb 13.478 oz Body Mass Index (BMI) 24.7 Intake and Output for Last 24 Hours 10/07/17 10/08/17 10/09/17 23:59 23:59 23:59 Intake Total 2499 / 2499 Output Total 1700 / 1700 Balance 799 / 799 Microbiology Past 72 Hours 10/08/17 23:40 Influenza Types A,B Direct FA (ROSHNI) - Final Mucosa - Nose Laboratory Tests Past 24 Hrs 10/08/17 10/09/17 10/09/17 23:25 06:43 06:43 WBC 8.1 RBC 3.79 L Hgb 11.1 L Hct 34.8 L MCV 91.8 MCH 29.3 MCHC 31.9 L RDW 13.6 RDW Differential 45.5 H Plt Count 195 MPV 10.1 Immature Gran % (Auto) 0.100 Neut % (Auto) 93.1 H Lymph % (Auto) 5.2 L Merrick % (Auto) 1.6 Eos % (Auto) 0.0 Baso % (Auto) 0.0 Absolute Neuts (auto) 7.6 Absolute Lymphs (auto) 0.42 L Total Counted Not Reportable Differential Comment D-Dimer Quant (PE/DVT) 0.84 H* Sodium 143 Potassium 4.9 Chloride 107 Carbon Dioxide 28.0 Anion Gap 8 BUN 20 H Creatinine 1.09 Estim Creat Clear Calc 73.48 Est GFR (MDRD) Af Amer 88 Est GFR (MDRD) Non-Af 73 BUN/Creatinine Ratio 18.3 Glucose 150 H Calcium 8.3 L Total Bilirubin 0.40 AST 17 ALT 29 Alkaline Phosphatase 137 H Total Protein 6.1 L Albumin 2.8 L Globulin 3.3 Albumin/Globulin Ratio 0.8 L Assessment/Plan Active and Suspected Problems (Last Reviewed 08/16/17 @ 18:42 by Erin Ortiz NP-C) Lung mass (Acute) COPD exacerbation (Acute) RECOMMENDATIONS 1. Wean oxygen supplementation to keep saturations 88-92%. 2. Encourage incentive spirometer. 3. Increase activity as tolerated. 4. Continue aerosols. Likely okay to discontinue antibiotics. 5. IV steroids likely not needed, would resume baseline prednisone 10 mg. 6. BiPAP at night. 7. Ambulatory pulse ox prior to discharge. 8. Patient can follow-up in pulmonary clinic within 2 weeks, at which time patient can pursue CT-guided biopsy for questionable lung mass if he chooses to have this evaluated. 9. If patient decides not to follow through with CT-guided biopsy today, can be discharged home from pulmonary perspective. IMPRESSIONS 1. Left upper lobe lung mass New finding, not observed on CT of the chest in January 2017. Patient does have smoking history/risk factors for carcinoma. Patient does not wish to decide on a CT-guided lung biopsy at this time, he will think about it and let us know in a day or 2. This can be followed up with as an outpatient. Please schedule appointment in the pulmonary clinic within 2 weeks with [employer]. 2. Shortness of breath/end-stage COPD/chronic respiratory failure Patient does not appear to be an acute exacerbation at this time. He has very poor airflow and no wheezing, however no increase in cough, sputum production, no fevers. Patient maintaining appropriate saturations on chronic 3 L. He has been compliant with his Trilogy and baseline inhaler regimen at home and has been receiving palliative care. Likely okay to discontinue antibiotics and IV steroids, placed back on baseline 10 mg of prednisone. Patient can be on Pulmicort as well until discharged. 3. Anxiety/chronic pain/postnasal drip/diabetes/malnutrition/narcotic dependence Complicates care, management, recovery, and prognosis. Continue home medications as indicated. Thank you for the opportunity to participate in this patient's care, please do not hesitate contact us with any further questions or concerns. This note was generated with Dragon dictation software. It may contain incorrect words, spelling, and punctuation that were not noted in checking the note before signing.
[2017-10-09] MEDS: Azithromycin 250 MG Tablet 500 MG PO (10:55)
--- NOTE | 2017-10-09 11:00 | CASEMGMT ---
GRETA KIM Face to Face with patient for initial transition planning/care coordination assessment. GRETA KIM introduced self and role at [facility]. Patient sitting in chair, alert and oriented. Patient willing to participate in assessment and is able to answer all questions appropriately. Care providers, pharmacy, and demographics verified. See link attached. Pt wishes to discharge home and would like resources for additional help. Discussed HHC. Also discussed [facility] and passport services. Patient has palliative services. Patient also has TPN through [facility] and comes to infusion clinic for dressing changes and blood work. Pt states he has no further needs or concerns at this time. Referral made to FLORA Terrell regarding passport services. CM to follow for discharge planning needs that may arise. Disposition Plan: Patient to discharge home with family support and follow-up plans in place. Provided with additional resources.
--- NOTE | 2017-10-09 11:14 | NURSING ---
talked w/ IVT Cam regarding order for jaime dressing changes as Judith HERNANDES form infusion center states they took over doing dressing changes from IVT. aware per cam we do not have copy of order of dressing change on the unit, need to call phyisican. per pt Dr. Gokul Rodriguez manages his Jaime- voicemail left for their office. Judith [facility]NANDEScustomer experience retail clerk center called and informed of above info.
--- NOTE | 2017-10-09 13:41 | NURSING ---
Pt requesting this nurse assess stoma. removed ileostomy appliance. there was a large amount of liquid brown stool in appliance. peristomal skin is intact. stoma is very well budded and measures approx 1 1/8 in diameter. pt has been using 1 pre-cut two piece Shushan appliances. the 1 fit ok. but was just a little snug. pt states the stoma does change in size at times. patient has both 7/8 and 1 flanges. patient has had his ostomy since 1989 and feel comfortable with appliances changes. pt just wanted someone else to assess the peristomal skin to be sure there were no issues. assured patient that skin was intact with no breakdown. new appliance placed at this time. pt denies further needs at this time.
--- NOTE | 2017-10-09 15:47 | CASEMGMT ---
Social Work Note SW received referral from GRETA Arce stating that pt is interested in [facility] resources and private duty. SW in to meet with pt to discuss [facility] and Private Duty. SW provided pt with pamphlet regarding [facility]. SW informed pt that pt may need to fill out Medicaid application to be eligible for certain programs. Pt states understanding. Pt states that he has a Medicaid application already and denied receiving another application. SW encouraged pt to complete Medicaid application. SW encouraged pt to review [facility] pamphlet and if he has questions or would like services to call the number provided for [facility]. Pt states understanding. SW provided pt with list of private duty aides. Pt thanked this SW, and denied additional issues or concerns at this time. Plan: Discharge home Loyda Terrell MSW, ARCHIVES DIRECTOR
[2017-10-09] MEDS: 0.9% Normal Saline 1,000 ML 75 ML IV (17:53)
[2017-10-10] VITALS (16 sets, daily range): BP systolic 145–162; BP diastolic 83–101; PULSE 86–104; RESP 12–30; TEMP 36.6–36.9; O2SAT 2–98
[2017-10-10] MEDS: 0.9% Normal Saline 1,000 ML 75 ML IV (05:37)
[2017-10-10] MEDS: LORazepam 0.5 MG Tablet PO ×4 (05:42→22:13)
[2017-10-10] MEDS: morphine (oral solution) 10MG/0.5ML Syringe 10 MG PO ×4 (05:43→22:14)
[2017-10-10] MEDS: Ipratropium/Albuterol Sulfate 3 ML AMPUL.NEB INHALATION ×5 (06:48→22:34)
[2017-10-10] MEDS: oxyCODONE 5 MG Tablet 10 MG PO ×3 (07:19→20:09)
--- NOTE | 2017-10-10 07:43 | PN_ITS ---
Patient Problems: Active and Suspected Problems (Last Reviewed 08/16/17 @ 18:42 by Erin Ortiz NP-C) Lung mass (Acute) COPD exacerbation (Acute) Subjective: Patient seen admit to some improvement in his breathing status. Did discuss with patient regarding the findings on the chest CT which could be a lung malignancy he however does not want any biopsy to be performed at this point Objective: GENERAL: cooperative HEENT: Clear conjunctiva, moist oral mucosa NECK; supple, normal thyroid, no distended JVD. CHEST: Diminished to auscultation bilaterally, HEART: Regular S1 S2, no audible murmurs ABDOMEN: soft, non-tender, normoactive bowel sounds, RECTAL: deferred EXTREMITIES: No edema, no clubbing, no cyanosis. STREET INSPECTOR: Awake; no lateralizing signs. SKIN: No Rash Vitals/I&O's: Vital Signs Temp Pulse Resp BP Pulse Ox 98 F 90 16 162/93 H 97 10/10/17 06:21 10/10/17 06:39 10/10/17 06:39 10/10/17 06:21 10/10/17 06:39 Oxygen Flow Rate (L/min) 3 Oxygen Delivery Method Nasal Cannula Weight: 78.4 kg Body Mass Index (BMI) 24.7 Intake and Output for Last 24 Hours 10/08/17 10/09/17 10/10/17 23:59 23:59 23:59 Intake Total 4575 / 4575 1345 / 1345 Output Total 3075 / 3075 950 / 950 Balance 1500 / 1500 395 / 395 Microbiology Past 72 Hours 10/08/17 23:40 Mucosa - Nose Influenza Types A,B Direct FA (ROSHNI) - Final Current Medications Albuterol Sulfate (Ventolin Aerosols) 2.5 mg INHALATION Q2H PRN PRN PRN Reason: SHORTNESS OF BREATH, wheezing Albuterol/Ipratropium (Duoneb) 3 ml INHALATION Q4H.RT [facility] Last Admin: 10/10/17 06:48 Dose: 3 ml Azithromycin (Zithromax) 500 mg PO DAILY [facility] Stop: 10/10/17 10:01 Last Admin: 10/09/17 10:55 Dose: 500 mg Cyanocobalamin (Vitamin B12) 1,000 mcg SC Q30D [facility] Enoxaparin Sodium (Lovenox) 40 mg SC DAILY [facility] Last Admin: 10/09/17 08:12 Dose: 40 mg Ergocalciferol (Vitamin D) 50,000 unit PO MO [facility] Last Admin: 10/09/17 08:12 Dose: 50,000 unit Ferrous Sulfate (Ferrous Sulfate) 325 mg PO DAILY@0800 [facility] Last Admin: 10/09/17 08:12 Dose: 325 mg Folic Acid (Folic Acid) 1 mg PO DAILY@0800 [facility] Last Admin: 10/09/17 08:12 Dose: 1 mg Guaifenesin (Robitussin Dm) 20 ml PO Q4H PRN PRN Reason: COUGH Last Admin: 10/09/17 20:41 Dose: 20 ml Sodium Chloride () 1,000 mls @ 75 mls/hr IV .[id number] [facility] Last Admin: 10/10/17 05:37 Dose: 75 mls/hr Lorazepam (Ativan) 0.5 mg PO Q4H PRN PRN PRN Reason: ANXIETY Last Admin: 10/10/17 05:42 Dose: 0.5 mg Methadone HCl () 5 mg PO DAILY [facility] Last Admin: 10/09/17 08:16 Dose: 5 mg Morphine Sulfate (Roxanol (Ir Oral Solution)) 10 mg PO Q4H PRN PRN PRN Reason: SOB &/OR WHEEZING Last Admin: 10/10/17 05:43 Dose: 10 mg Naproxen (Naprosyn) 250 mg PO BID PRN PRN PRN Reason: PAIN Nutritional Formula (Lactose Free) (Ensure Enlive) 120 ml PO 4X/DAY [facility] Last Admin: 10/09/17 22:09 Dose: Not Given Oxycodone HCl (Oxyir) 10 mg PO Q6H PRN PRN PRN Reason: PAIN Last Admin: 10/10/17 07:19 Dose: 10 mg Prednisone () 20 mg PO DAILY@0800 [facility] Sodium Chloride () 10 - 40 ml IV UD PRN PRN Reason: MULTILUMEN/HICMAN CATH FLUSH Last Admin: 10/09/17 07:34 Dose: 10 ml Medical Necessity - Tobacco Use Smoking Status: Former smoker Tobacco Use: Cigarettes Assessment/Plan Active and Suspected Problems (Last Reviewed 08/16/17 @ 18:42 by Erin Ortiz, JAYME-C) Lung mass (Acute) COPD exacerbation (Acute) Patient is a 61-year-old gentleman with history of chronic hypoxic respiratory failure on baseline home O2 who presented with shortness of breath and assessment of COPD with acute exacerbation was made admitted to regular nursing floor for subsequent management 1. COPD with acute exacerbation patient has been admitted to regular nursing floor managed with systemic rights, antibiotics with Zithromax in addition to bronchodilator treatment 2. Chronic hypoxic respiratory failure secondary to COPD patient is on baseline 3 L of oxygen at home 3. Spiculated left upper lobe mass likely represents a bronchogenic carcinoma. Consultation was placed to pulmonary medicine did discuss findings with patient he does not want any biopsy to confirm diagnosis. Did inform patient that mass could be a lung malignancy he is aware 4. Diabetes mellitus type 2 diet controlled 5. Obstructive colitis with previous history of ileostomy 6. Chronic narcotic dependence patient is on methadone 7. DVT prophylaxis; enoxaparin Active Medications Albuterol Sulfate (Ventolin Aerosols) 2.5 mg INHALATION Q2H PRN PRN PRN Reason: SHORTNESS OF BREATH, wheezing Albuterol/Ipratropium (Duoneb) 3 ml INHALATION Q4H.RT [facility] Last Admin: 10/09/17 06:40 Dose: 3 ml Azithromycin (Zithromax) 500 mg PO DAILY [facility] Stop: 10/10/17 10:01 Cyanocobalamin (Vitamin B12) 1,000 mcg SC Q30D [facility] Enoxaparin Sodium (Lovenox) 40 mg SC DAILY [facility] Last Admin: 10/09/17 08:12 Dose: 40 mg Ergocalciferol (Vitamin D) 50,000 unit PO MO [facility] Last Admin: 10/09/17 08:12 Dose: 50,000 unit Ferrous Sulfate (Ferrous Sulfate) 325 mg PO DAILY@0800 [facility] Last Admin: 10/09/17 08:12 Dose: 325 mg Folic Acid (Folic Acid) 1 mg PO DAILY@0800 [facility] Last Admin: 10/09/17 08:12 Dose: 1 mg Guaifenesin (Robitussin Dm) 20 ml PO Q4H PRN PRN Reason: COUGH Sodium Chloride () 1,000 mls @ 150 mls/hr IV .Q6H40M [facility] Last Admin: 10/08/17 23:55 Dose: 150 mls/hr Lorazepam (Ativan) 0.5 mg PO Q4H PRN PRN PRN Reason: ANXIETY Last Admin: 10/09/17 05:57 Dose: 0.5 mg Methadone HCl () 5 mg PO DAILY [facility] Last Admin: 10/09/17 08:16 Dose: 5 mg Methylprednisolone (Solu-Medrol) 40 mg IV Q8 [facility] Stop: 10/10/17 06:01 Last Admin: 10/09/17 05:58 Dose: 40 mg Morphine Sulfate (Roxanol (Ir Oral Solution)) 10 mg PO Q4H PRN PRN PRN Reason: SOB &/OR WHEEZING Last Admin: 10/09/17 05:58 Dose: 10 mg Naproxen (Naprosyn) 250 mg PO BID PRN PRN PRN Reason: PAIN Nutritional Formula (Lactose Free) (Ensure Enlive) 120 ml PO 4X/DAY [facility] Last Admin: 10/09/17 08:15 Dose: 120 ml Oxycodone HCl (Oxyir) 10 mg PO Q6H PRN PRN PRN Reason: PAIN Last Admin: 10/09/17 07:33 Dose: 10 mg Prednisone () 20 mg PO DAILY@0800 [facility] Sodium Chloride () 10 - 40 ml IV UD PRN PRN Reason: MULTILUMEN/HICMAN CATH FLUSH Last Admin: 10/09/17 07:34 Dose: 10 ml Clinical Impression(s) from Imaging Studies Abdomen/Pelvis CT 10/08/17 18:56 IMPRESSION: No acute abdominal or pelvic pathology demonstrated on this noncontrast CT. Stable postsurgical changes from a colectomy with a left lower quadrant ileostomy placed. Electronically Signed: Dl Quinonez at 20:51 EDT Tel , Service support , Chest X-Ray 10/08/17 19:20 IMPRESSION: 1. The lung bases are not visible on this study. 2. Questionable left-sided pulmonary nodules. 3. COPD. Electronically Signed: Guera Meyers MD at 19:47 EDT , Service support , Chest CTA 10/09/17 00:29 IMPRESSION: 1. No CTA demonstrated pulmonary embolism or arterial dissection. 2. Spiculated left upper lobe mass likely represents a bronchogenic carcinoma. 3. COPD. 4. Right-sided renal cyst. Electronically Signed: Guera Meyers MD at 2:34 EDT , Service support , Code Visit Inpatient E&M: [id number] Subs Hosp L2
--- NOTE | 2017-10-10 07:47 | NURSING ---
pt has been having panic and feeling like i can't get my breath since approximately 6 am-at home pt is on a non invasive assistive breathing device, encourage pt to go on bi-pap-he states he has not been on all night-consulted with CPS and they agree that may help-pt agreeable-n/c o2 had been turned from 2 to 3 l and hour ago, pulse pox is 96% but pt still has feelings of not able to catch breath-will reassess see vitals
--- NOTE | 2017-10-10 08:20 | PN_ITS ---
Patient Problems: Active and Suspected Problems (Last Reviewed 08/16/17 @ 18:42 by Erin Ortiz NP-[place]) Lung mass (Acute) COPD exacerbation (Acute) Subjective: Patient was seen and examined. He is lying in bed in no acute distress, eating a Cristiane doone. Nursing staff reports onset of shortness of breath/anxiety this morning around 6 AM, this is been happening frequently as an outpatient as well. Patient rested shortly thereafter on BiPAP and had improvement in his symptoms. Currently wearing 3 L of oxygen supplementation and pulse oximetry is 100%, he was turned down to 2 L. Objective: No new lab data to review. Rapid influenza screening negative. No new imaging to review. Remains afebrile and hemodynamically stable. Blood pressure somewhat elevated today. - Physical Exam General: Alert, Oriented x3, Cooperative, - - mild conversational dyspnea HEENT: Atraumatic, Normocephalic Oral: Moist Mucosa, No Gingival or Mucosal Lesions/ Ulcerations Neck: Supple, No Nodes, Trachea Midline Lungs: No rhonchi, No wheeze, No rales, Tachypneic, - - Globally diminished. Central line right upper chest intact, dressing C/D/I Cardiovascular: Regular Rhythm, Normal S1, Normal S2, No murmurs, No rub noted, No Gallop, Tachycardic Abdomen: Bowel Sounds Present, Soft, Non Tender, - - Ostomy intact Extremities: No cyanosis, No edema, Clubbing Skin: - - no changes Musculoskeletal: No Tenderness to Palpation of Joints or Extremities Lymphatic: No Cervical, Supraclavicular, or Inguinal Adenopathy Neurological: Neuro grossly intact Psych/Mental Status: Alert and oriented to time, place, person, mood and affect Vital Signs Temp Pulse Resp BP Pulse Ox 98.1 F 104 H 30 H 157/101 H 96 10/10/17 07:49 10/10/17 07:52 10/10/17 07:52 10/10/17 07:49 10/10/17 07:49 Oxygen Flow Rate (L/min) 3 Oxygen Delivery Method Bi-pap Weight: 172 lb 13.478 oz Body Mass Index (BMI) 24.7 Intake and Output for Last 24 Hours 10/08/17 10/09/17 10/10/17 23:59 23:59 23:59 Intake Total 4575 / 4575 1345 / 1345 Output Total 3075 / 3075 950 / 950 Balance 1500 / 1500 395 / 395 Microbiology Past 72 Hours 10/08/17 23:40 Influenza Types A,B Direct FA ([facility]) - Final Mucosa - Nose Medical Necessity - Tobacco Use Smoking Status: Former smoker Tobacco Use: Cigarettes Assessment/Plan Active and Suspected Problems (Last Reviewed 08/16/17 @ 18:42 by Erin Ortiz, CONDOMINIUM MANAGER-C) Lung mass (Acute) COPD exacerbation (Acute) RECOMMENDATIONS 1. Wean oxygen supplementation to keep saturations 88-92%. 2. Encourage incentive spirometer. 3. Increase activity as tolerated. 4. Continue aerosols. 5. Resume home dose Prednisone 10 mg 6. BiPAP at night. I will contact [facility] [place]ilogy settings 7. Ambulatory pulse ox prior to discharge. 8. Patient can follow-up in pulmonary clinic within 2 weeks 9. Patient does not wish to pursue lung biopsy at this time. IMPRESSIONS 1. Left upper lobe lung mass New finding, not observed on CT of the chest in January 2017. Patient does have smoking history/risk factors for carcinoma. Patient does not wish to decide on a CT-guided lung biopsy at this time. This can be followed up with as an outpatient if patient changes his mind. Please schedule appointment in the pulmonary clinic within 2 weeks with CONDOMINIUM MANAGER. 2. Shortness of breath/end-stage COPD/chronic respiratory failure Patient does not appear to be an acute exacerbation at this time. He has very poor airflow and no wheezing, however no increase in cough, sputum production, no fevers. Patient maintaining appropriate saturations on chronic 3 L. He has been compliant with his Trilogy and baseline inhaler regimen at home and has been receiving palliative care. Antibiotics discontinued, would recommend resuming home dose of 10 mg of prednisone. Obtain ambulatory pulse ox prior to d/c. Would expect ongoing episodes of sudden SOB requiring noninvasive pressure support for comfort/recovery. Patient does have significant element of anxiety as well, but poor lung function so not abnormal for him to feel SOB. 3. Anxiety/chronic pain/postnasal drip/diabetes/malnutrition/narcotic dependence Complicates care, management, recovery, and prognosis. Continue home medications as indicated. Thank you for the opportunity to participate in this patient's care, please do not hesitate contact us with any further questions or concerns. This note was generated with [employer] software. It may contain incorrect words, spelling, and punctuation that were not noted in checking the note before signing.
[2017-10-10] MEDS: Ferrous Sulfate 325 MG Tablet PO (09:58)
[2017-10-10] MEDS: Azithromycin 250 MG Tablet 500 MG PO (09:58)
[2017-10-10] MEDS: Enoxaparin 40 MG/0.4 ML Syringe SC (09:58)
[2017-10-10] MEDS: Folic Acid 1 MG Tablet PO (09:58)
[2017-10-10] MEDS: guaiFENesin Dm 10 ML UDC 20 ML PO (09:59)
[2017-10-10] MEDS: predniSONE 20 MG Tablet PO (09:59)
[2017-10-11] VITALS (14 sets, daily range): BP systolic 140–162; BP diastolic 82–97; PULSE 83–102; RESP 16–20; TEMP 36.7–37.3; O2SAT 96–99
[2017-10-11] MEDS: Ipratropium/Albuterol Sulfate 3 ML AMPUL.NEB INHALATION ×6 (02:07→23:08)
[2017-10-11] MEDS: LORazepam 0.5 MG Tablet PO ×5 (02:32→18:58)
[2017-10-11] MEDS: morphine (oral solution) 10MG/0.5ML Syringe 10 MG PO ×5 (02:33→18:58)
[2017-10-11] MEDS: 0.9% Normal Saline 1,000 ML 75 ML IV (06:36)
[2017-10-11] MEDS: oxyCODONE 5 MG Tablet 10 MG PO ×3 (06:59→20:01)
--- NOTE | 2017-10-11 07:22 | CPS ---
Pt was offered to be put back on Bipap for S.O.B.. Pt refused to go back on at this time.
--- NOTE | 2017-10-11 08:12 | PN_ITS ---
Patient Problems: Active and Suspected Problems (Last Reviewed 08/16/17 @ 18:42 by Erin Ortiz NP-C) Lung mass (Acute) COPD exacerbation (Acute) Subjective: Patient was seen and examined. He is complaining of acute on chronic left upper and left lower quadrant abdominal pain where my hernia is. Denies any worsening of shortness of breath, cough, sputum production. Maintaining appropriate saturations on 2-3 L of oxygen. Compliant with BiPAP overnight. Objective: No new lab or culture data to review. Rapid influenza screening negative. No new imaging to review. Remains afebrile and hemodynamically stable. - Physical Exam General: Alert, Oriented x3, Cooperative, - - Painful HEENT: Atraumatic, Normocephalic Oral: Moist Mucosa, No Gingival or Mucosal Lesions/ Ulcerations Neck: Supple, No Nodes, Trachea Midline Lungs: No rhonchi, No wheeze, No rales, Diminished, - - No tachypnea or accessory muscle use. Reports right upper chest C/D/I Cardiovascular: Regular rate, Regular Rhythm, Normal S1, Normal S2 Abdomen: Bowel Sounds Present, Soft, Non-Distended, Guarding, Tender - LUQ/LLQ, - - ostomy intact Extremities: No cyanosis, No edema, Clubbing Skin: - - no changes Musculoskeletal: No Tenderness to Palpation of Joints or Extremities Lymphatic: No Cervical, Supraclavicular, or Inguinal Adenopathy Neurological: Neuro grossly intact Psych/Mental Status: Anxious Vital Signs Temp Pulse Resp BP Pulse Ox 98.2 F 98 18 155/82 H 98 10/11/17 03:15 10/11/17 06:44 10/11/17 06:44 10/11/17 03:15 10/11/17 06:44 Oxygen Flow Rate (L/min) 3 Oxygen Delivery Method Nasal Cannula Weight: 172 lb 13.478 oz Body Mass Index (BMI) 24.7 Intake and Output for Last 24 Hours 10/09/17 10/10/17 10/11/17 23:59 23:59 23:59 Intake Total 4575 / 4575 2475 / 2475 1296 / 1296 Output Total 3075 / 3075 1950 / 1950 900 / 900 Balance 1500 / 1500 525 / 525 396 / 396 Microbiology Past 72 Hours 10/08/17 23:40 Influenza Types A,B Direct FA ([facility]) - Final Mucosa - Nose Medical Necessity - Tobacco Use Smoking Status: Former smoker Tobacco Use: Cigarettes Assessment/Plan Active and Suspected Problems (Last Reviewed 08/16/17 @ 18:42 by Eirn Ortiz NP-C) Lung mass (Acute) COPD exacerbation (Acute) RECOMMENDATIONS 1. Wean oxygen supplementation to keep saturations 88-92%. 2. Encourage incentive spirometer and increase activity as tolerated 3. Continue aerosols. 4. Resume home dose Prednisone 10 mg 5. BiPAP at night. 6. Ambulatory pulse ox prior to discharge. 7. Patient can follow-up in pulmonary clinic in 2 weeks with ORTHOPEDIC CAST SPECIALIST 8. Patient does not wish to pursue lung biopsy at this time 9. Okay to discharge from pulmonary standpoint IMPRESSIONS 1. Left upper lobe lung mass New finding, not observed on CT of the chest in January 2017. Patient does have smoking history/risk factors for carcinoma. Patient does not wish to pursue CT-guided lung biopsy at this time. States he would not go through treatment even if cancer because quality of life is already poor with respiratory and GI issues. This can be followed up with as an outpatient if patient changes his mind. Please schedule appointment in the pulmonary clinic within 2 weeks with ORTHOPEDIC CAST SPECIALIST. 2. Shortness of breath/end-stage COPD/chronic respiratory failure Patient does not appear to be an acute exacerbation at this time. Patient maintaining appropriate saturations on chronic 3 L. He has been compliant with his Trilogy and baseline inhaler regimen at home and has been receiving palliative care. Would recommend resuming home dose of 10 mg of prednisone. Obtain ambulatory pulse ox prior to d/c. Would expect ongoing episodes of sudden SOB requiring noninvasive pressure support for comfort/recovery. Patient does have significant element of anxiety as well, but has poor lung function so not abnormal for him to feel SOB. 3. Anxiety/chronic pain/postnasal drip/diabetes/malnutrition/narcotic dependence/abdominal pain Complicates care, management, recovery, and prognosis. Continue home medications as indicated. Give morning pain medications for abdominal discomfort, will see how patient doing later on this morning. Management per hospitalist. Thank you for the opportunity to participate in this patient's care, please do not hesitate contact us with any further questions or concerns. This note was generated with [employer] software. It may contain incorrect words, spelling, and punctuation that were not noted in checking the note before signing.
[2017-10-11] MEDS: Ferrous Sulfate 325 MG Tablet PO (08:47)
[2017-10-11] MEDS: Folic Acid 1 MG Tablet PO (08:47)
[2017-10-11] MEDS: predniSONE 10 MG Tablet PO (08:53)
[2017-10-11] MEDS: Enoxaparin 40 MG/0.4 ML Syringe SC (10:32)
--- NOTE | 2017-10-11 10:46 | PCM.PROGNOTE ---
Patient Problems: Active and Suspected Problems (Last Reviewed 08/16/17 @ 18:42 by Erin Ortiz NP-C) Lung mass (Acute) COPD exacerbation (Acute) Subjective: He is c/o left lower chest to abdominal pain with cough. CTA was done, which were unremarkable for PE or infiltrate. He is afebrile. O2 Sat is in upper 90's with 3 liter via NC. - Physical Exam General: Alert, Oriented x3, Cooperative, Well developed, Well nourished HEENT: Atraumatic, PERRLA, EOMI Oral: Moist Mucosa, No Gingival or Mucosal Lesions/ Ulcerations Neck: Supple, No JVD Lungs: - - Mostly clear, diminished breath sounds at lower lung fileds. Mild wheezing at upper lung fileds bilaterally. Cardiovascular: Regular rate, Regular Rhythm, Normal S1, Normal S2, No murmurs, No Ectopic Activity Abdomen: Bowel Sounds Present, Soft, Non Tender, Non-Distended, No Hepato-splenomegaly Extremities: No clubbing, No cyanosis, No edema Skin: No rashes, No breakdown Musculoskeletal: No Tenderness to Palpation of Joints or Extremities, No Muscle Wasting Lymphatic: No Cervical, Supraclavicular, or Inguinal Adenopathy Neurological: Cranial nerves II-XII grossly intact, Neuro grossly intact Psych/Mental Status: Normal Affect Vital Signs Temp Pulse Resp BP Pulse Ox 98.5 F 90 18 140/94 H 97 10/11/17 08:40 10/11/17 08:40 10/11/17 08:40 10/11/17 08:40 10/11/17 08:40 Oxygen Flow Rate (L/min) 3 Oxygen Delivery Method Nasal Cannula Weight: 172 lb 13.478 oz Body Mass Index (BMI) 24.7 Intake and Output for Last 24 Hours 10/09/17 10/10/17 10/11/17 23:59 23:59 23:59 Intake Total 4575 / 4575 2475 / 2475 1296 / 1296 Output Total 3075 / 3075 1950 / 1950 900 / 900 Balance 1500 / 1500 525 / 525 396 / 396 Microbiology Past 72 Hours 10/08/17 23:40 Influenza Types A,B Direct FA ([facility]) - Final Mucosa - Nose Diagnostic Data Abdomen/Pelvis CT 10/08/17 18:56 IMPRESSION: No acute abdominal or pelvic pathology demonstrated on this noncontrast CT. Stable postsurgical changes from a colectomy with a left lower quadrant ileostomy placed. Electronically Signed: Dl Quinonez, at 20:51 EDT Tel , Service support , Chest X-Ray 10/08/17 19:20 IMPRESSION: 1. The lung bases are not visible on this study. 2. Questionable left-sided pulmonary nodules. 3. COPD. Electronically Signed: Guera Meyers MD at 19:47 EDT , Service support , Chest CTA 10/09/17 00:29 IMPRESSION: 1. No CTA demonstrated pulmonary embolism or arterial dissection. 2. Spiculated left upper lobe mass likely represents a bronchogenic carcinoma. 3. COPD. 4. Right-sided renal cyst. Electronically Signed: Guera Meyers MD at 2:34 EDT , Service support , Medical Necessity - Tobacco Use Smoking Status: Former smoker Tobacco Use: Cigarettes Assessment/Plan Active and Suspected Problems (Last Reviewed 08/16/17 @ 18:42 by Erin Ortiz NP-C) Lung mass (Acute) COPD exacerbation (Acute) Patient is a 61-year-old gentleman with history of chronic hypoxic respiratory failure on baseline home O2 who presented with shortness of breath and assessment of COPD with acute exacerbation was made admitted to regular nursing floor for subsequent management 1. COPD with acute exacerbation. Admitted to medical floor. He was started on Solu Medrol, changed to oral prednisone at home dose (10 mg po qd). Started on Azithromycin, completed 3 days. Continue bronchodilator, DuoNeb Q4H [place] and albuterol [place] prn. Pulmonary consultation appreciated. Plan for ambulatory pulse ox prior to discharge. 2. Chronic hypoxic respiratory failure secondary to COPD patient is on baseline 3 L of oxygen at home 3. Spiculated left upper lobe mass likely represents a bronchogenic carcinoma. C Pulmonary consultation appreciated. At this time, patient does not want to pursue further treatment because of current poor quality of life due to underling lung problems and GI issues with history of ileostomy. He may be a poor candidate for treatment. Pulmonary recommended for CT guided biopsy if patient changes his mind. 4. Diabetes mellitus type 2 diet controlled 5. History of inflammatory bowel disease, history of multiple surgeries, s/p ileostomy. 6. Chronic narcotic dependence patient is on methadone. C/O chest wall pain, left lower chest. He follows palliative care. Patient states that he does not feel safe to go home to day due to increasing chest wall pain. PT/OT evaluate, possible rehab if he is not functional for ADL. 7. DVT prophylaxis; enoxaparin. Code Visit Inpatient E&M: 90485 Subs Hosp L2
--- NOTE | 2017-10-11 10:58 | PN_ITS ---
Patient Problems: Active and Suspected Problems (Last Reviewed 08/16/17 @ 18:42 by Erin Ortiz NP-C) Lung mass (Acute) COPD exacerbation (Acute) Subjective: He is c/o left lower chest to abdominal pain with cough. CTA was done, which were unremarkable for PE or infiltrate. He is afebrile. O2 Sat is in upper 90' s with 3 liter via NC. - Physical Exam General: Alert, Oriented x3, Cooperative, Well developed, Well nourished HEENT: Atraumatic, PERRLA, EOMI Oral: Moist Mucosa, No Gingival or Mucosal Lesions/ Ulcerations Neck: Supple, No JVD Lungs: - - Mostly clear, diminished breath sounds at lower lung fileds. Mild wheezing at upper lung fileds bilaterally. Cardiovascular: Regular rate, Regular Rhythm, Normal S1, Normal S2, No murmurs, No Ectopic Activity Abdomen: Bowel Sounds Present, Soft, Non Tender, Non-Distended, No Hepato- splenomegaly Extremities: No clubbing, No cyanosis, No edema Skin: No rashes, No breakdown Musculoskeletal: No Tenderness to Palpation of Joints or Extremities, No Muscle Wasting Lymphatic: No Cervical, Supraclavicular, or Inguinal Adenopathy Neurological: Cranial nerves II-XII grossly intact, Neuro grossly intact Psych/Mental Status: Normal Affect Vital Signs Temp Pulse Resp BP Pulse Ox 98.5 F 90 18 140/94 H 97 10/11/17 08:40 10/11/17 08:40 10/11/17 08:40 10/11/17 08:40 10/11/17 08:40 Oxygen Flow Rate (L/min) 3 Oxygen Delivery Method Nasal Cannula Weight: 172 lb 13.478 oz Body Mass Index (BMI) 24.7 Intake and Output for Last 24 Hours 10/09/17 10/10/17 10/11/17 23:59 23:59 23:59 Intake Total 4575 / 4575 2475 / 2475 1296 / 1296 Output Total 3075 / 3075 1950 / 1950 900 / 900 Balance 1500 / 1500 525 / 525 396 / 396 Microbiology Past 72 Hours 10/08/17 23:40 Influenza Types A,B Direct FA ([facility]) - Final Mucosa - Nose Diagnostic Data Abdomen/Pelvis CT 10/08/17 18:56 IMPRESSION: No acute abdominal or pelvic pathology demonstrated on this noncontrast CT. Stable postsurgical changes from a colectomy with a left lower quadrant ileostomy placed. Electronically Signed: Dl Quinonez, at 20:51 EDT Tel , Service support , Chest X-Ray 10/08/17 19:20 IMPRESSION: 1. The lung bases are not visible on this study. 2. Questionable left-sided pulmonary nodules. 3. COPD. Electronically Signed: Guera Meyers MD at 19:47 EDT , Service support , Chest CTA 10/09/17 00:29 IMPRESSION: 1. No CTA demonstrated pulmonary embolism or arterial dissection. 2. Spiculated left upper lobe mass likely represents a bronchogenic carcinoma. 3. COPD. 4. Right-sided renal cyst. Electronically Signed: Guera Meyers MD at 2:34 EDT , Service support , Medical Necessity - Tobacco Use Smoking Status: Former smoker Tobacco Use: Cigarettes Assessment/Plan Active and Suspected Problems (Last Reviewed 08/16/17 @ 18:42 by Erin Ortiz NP-C) Lung mass (Acute) COPD exacerbation (Acute) Patient is a 61-year-old gentleman with history of chronic hypoxic respiratory failure on baseline home O2 who presented with shortness of breath and assessment of COPD with acute exacerbation was made admitted to regular nursing floor for subsequent management 1. COPD with acute exacerbation. Admitted to medical floor. He was started on Solu Medrol, changed to oral prednisone at home dose (10 mg po qd). Started on Azithromycin, completed 3 days. Continue bronchodilator, DuoNeb Q4H [place] and albuterol [place] prn. Pulmonary consultation appreciated. Plan for ambulatory pulse ox prior to discharge. 2. Chronic hypoxic respiratory failure secondary to COPD patient is on baseline 3 L of oxygen at home 3. Spiculated left upper lobe mass likely represents a bronchogenic carcinoma. C Pulmonary consultation appreciated. At this time, patient does not want to pursue further treatment because of current poor quality of life due to underling lung problems and GI issues with history of ileostomy. He may be a poor candidate for treatment. Pulmonary recommended for CT guided biopsy if patient changes his mind. 4. Diabetes mellitus type 2 diet controlled 5. History of inflammatory bowel disease, history of multiple surgeries, s/p ileostomy. 6. Chronic narcotic dependence patient is on methadone. C/O chest wall pain, left lower chest. He follows palliative care. Patient states that he does not feel safe to go home to day due to increasing chest wall pain. PT/OT evaluate, possible rehab if he is not functional for ADL. 7. DVT prophylaxis; enoxaparin. Code Visit Inpatient E&M: 46431 Subs Hosp L2
[2017-10-11] MEDS: Naproxen 250 MG Tablet PO (12:26)
[2017-10-11] MEDS: guaiFENesin Dm 10 ML UDC 20 ML PO (12:26)
[2017-10-12] VITALS (14 sets, daily range): BP systolic 137–169; BP diastolic 75–98; PULSE 76–113; RESP 16–24; TEMP 36.5–36.9; O2SAT 94–99
[2017-10-12] MEDS: morphine (oral solution) 10MG/0.5ML Syringe 10 MG PO ×5 (04:22→22:25)
[2017-10-12] MEDS: LORazepam 0.5 MG Tablet PO ×5 (04:23→22:25)
--- NOTE | 2017-10-12 04:28 | NURSING ---
pt woke up very anxious, bipap removed and pt placed on 3lnc, prn ativan and morphine given
[2017-10-12] MEDS: oxyCODONE 5 MG Tablet 10 MG PO ×3 (04:41→20:13)
[2017-10-12] MEDS: Albuterol 2.5 MG/3 ML VIAL.NEB. INHALATION (04:51)
--- NOTE | 2017-10-12 08:11 | PCM.PROGNOTE ---
Patient Problems: Active and Suspected Problems (Last Reviewed 08/16/17 @ 18:42 by ABBE Jean) Lung mass (Acute) COPD exacerbation (Acute) Subjective: Patient was seen and examined. Resting comfortably in bed, no acute distress. Nursing staff reports no acute events overnight. Denies any current shortness of breath, cough, or sputum production. He is 98% on 3 L. Continues to complain of acute on chronic left-sided abdominal pain, describes it as sharp and radiates with movement. Thinks it might be somewhat better than yesterday but cannot sit forward on his own. Objective: No new lab or culture data to review. Rapid influenza screening negative. No new imaging to review. Remains afebrile and hemodynamically stable. - Physical Exam General: Alert, Oriented x3, Cooperative, No apparent distress, - HEENT: Atraumatic, Normocephalic - No conversational dyspnea Oral: Moist Mucosa, No Gingival or Mucosal Lesions/ Ulcerations Neck: Supple, No Nodes, Trachea Midline Lungs: No rhonchi, No wheeze, No rales, Diminished, - - Symmetric expansion, no dullness to percussion. No tachypnea or accessory muscle use. Cardiovascular: Regular rate, Regular Rhythm, Normal S1, Normal S2, No murmurs, No rub noted, No Gallop Abdomen: Bowel Sounds Present, Soft, Tender, Hernia, - - Scarring from previous surgeries area. No masses palpated Extremities: No cyanosis, No edema, Clubbing Skin: - - no changes Musculoskeletal: No Tenderness to Palpation of Joints or Extremities Lymphatic: No Cervical, Supraclavicular, or Inguinal Adenopathy Neurological: Neuro grossly intact Psych/Mental Status: Anxious, - - cooperative Vital Signs Temp Pulse Resp BP Pulse Ox 98.3 F 90 16 162/98 H 99 10/12/17 04:00 10/12/17 04:51 10/12/17 04:51 10/12/17 04:00 10/12/17 04:00 Oxygen Flow Rate (L/min) 3 Oxygen Delivery Method Nasal Cannula Weight: 172 lb 13.478 oz Body Mass Index (BMI) 24.7 Intake and Output for Last 24 Hours 10/10/17 10/11/17 10/12/17 23:59 23:59 23:59 Intake Total 2475 / 2475 1526 / 1526 Output Total 1950 / 1950 2325 / 2325 825 / 825 Balance 525 / 525 -799 / -799 -825 / -825 Microbiology Past 72 Hours 10/11/17 18:00 Gram Stain - Preliminary Sputum, Expectorated/Coughed Medical Necessity - Tobacco Use Smoking Status: Former smoker Tobacco Use: Cigarettes Assessment/Plan Active and Suspected Problems (Last Reviewed 08/16/17 @ 18:42 by Erin Ortiz, MANAGER RECRUITMENT-C) Lung mass (Acute) COPD exacerbation (Acute) RECOMMENDATIONS 1. Wean oxygen supplementation to keep saturations 88-92%. 2. Encourage incentive spirometer and increase activity as tolerated 3. Continue aerosols. 4. Continue home dose Prednisone 10 mg 5. BiPAP at night, continue Trilogy when discharged 6. Ambulatory pulse ox prior to discharge. 7. Patient can follow-up in pulmonary clinic in 2 weeks with MANAGER RECRUITMENT 8. Patient does not wish to pursue lung biopsy at this time 9. Okay to discharge from pulmonary standpoint IMPRESSIONS 1. Left upper lobe lung mass New finding, not observed on CT of the chest in January 2017. Patient does have smoking history/risk factors for carcinoma. Patient does not wish to pursue CT-guided lung biopsy at this time. States he would not go through treatment even if cancer because quality of life is already poor with respiratory and GI issues. This can be followed up with as an outpatient if patient changes his mind. Please schedule appointment in the pulmonary clinic within 2 weeks with MANAGER RECRUITMENT. 2. Shortness of breath/end-stage COPD/chronic respiratory failure Patient does not appear to be an acute exacerbation at this time. Patient maintaining appropriate saturations on chronic 3 L. Interestingly, the patient had a walking oximetry 05/2017 that demonstrated no need for supplemental oxygen, however had significant exercise intolerance. He has been compliant with his Trilogy and baseline inhaler regimen at home and has been receiving Palliative care. Would recommend resuming home dose of 10 mg of prednisone. Obtain ambulatory pulse ox prior to d/c. Would expect ongoing episodes of sudden SOB requiring noninvasive pressure support for comfort/recovery. Patient does have significant element of anxiety as well, but has poor lung function so not abnormal for him to feel SOB. Given his newly found ELI mass, would expect SOB to progressively worsen if in fact it is cancer. The patient would be Hospice appropriate. 3. Anxiety/chronic pain/postnasal drip/diabetes/malnutrition/narcotic dependence/abdominal pain Complicates care, management, recovery, and prognosis. Continue home medications as indicated. Management of abdominal discomfort per hospitalist. Thank you for the opportunity to participate in this patient's care, please do not hesitate contact us with any further questions or concerns. This note was generated with [email or web address] dictation software. It may contain incorrect words, spelling, and punctuation that were not noted in checking the note before signing.
--- NOTE | 2017-10-12 08:15 | PN_ITS ---
Patient Problems: Active and Suspected Problems (Last Reviewed 08/16/17 @ 18:42 by ABBE Jean) Lung mass (Acute) COPD exacerbation (Acute) Subjective: Patient was seen and examined. Resting comfortably in bed, no acute distress. Nursing staff reports no acute events overnight. Denies any current shortness of breath, cough, or sputum production. He is 98% on 3 L. Continues to complain of acute on chronic left-sided abdominal pain, describes it as sharp and radiates with movement. Thinks it might be somewhat better than yesterday but cannot sit forward on his own. Objective: No new lab or culture data to review. Rapid influenza screening negative. No new imaging to review. Remains afebrile and hemodynamically stable. - Physical Exam General: Alert, Oriented x3, Cooperative, No apparent distress, - HEENT: Atraumatic, Normocephalic - No conversational dyspnea Oral: Moist Mucosa, No Gingival or Mucosal Lesions/ Ulcerations Neck: Supple, No Nodes, Trachea Midline Lungs: No rhonchi, No wheeze, No rales, Diminished, - - Symmetric expansion, no dullness to percussion. No tachypnea or accessory muscle use. Cardiovascular: Regular rate, Regular Rhythm, Normal S1, Normal S2, No murmurs, No rub noted, No Gallop Abdomen: Bowel Sounds Present, Soft, Tender, Hernia, - - Scarring from previous surgeries area. No masses palpated Extremities: No cyanosis, No edema, Clubbing Skin: - - no changes Musculoskeletal: No Tenderness to Palpation of Joints or Extremities Lymphatic: No Cervical, Supraclavicular, or Inguinal Adenopathy Neurological: Neuro grossly intact Psych/Mental Status: Anxious, - - cooperative Vital Signs Temp Pulse Resp BP Pulse Ox 98.3 F 90 16 162/98 H 99 10/12/17 04:00 10/12/17 04:51 10/12/17 04:51 10/12/17 04:00 10/12/17 04:00 Oxygen Flow Rate (L/min) 3 Oxygen Delivery Method Nasal Cannula Weight: 172 lb 13.478 oz Body Mass Index (BMI) 24.7 Intake and Output for Last 24 Hours 10/10/17 10/11/17 10/12/17 23:59 23:59 23:59 Intake Total 2475 / 2475 1526 / 1526 Output Total 1950 / 1950 2325 / 2325 825 / 825 Balance 525 / 525 -799 / -799 -825 / -825 Microbiology Past 72 Hours 10/11/17 18:00 Gram Stain - Preliminary Sputum, Expectorated/Coughed Medical Necessity - Tobacco Use Smoking Status: Former smoker Tobacco Use: Cigarettes Assessment/Plan Active and Suspected Problems (Last Reviewed 08/16/17 @ 18:42 by Erin Ortiz, HIGHWALL DRILL OPERATOR-C) Lung mass (Acute) COPD exacerbation (Acute) RECOMMENDATIONS 1. Wean oxygen supplementation to keep saturations 88-92%. 2. Encourage incentive spirometer and increase activity as tolerated 3. Continue aerosols. 4. Continue home dose Prednisone 10 mg 5. BiPAP at night, continue Trilogy when discharged 6. Ambulatory pulse ox prior to discharge. 7. Patient can follow-up in pulmonary clinic in 2 weeks with HIGHWALL DRILL OPERATOR 8. Patient does not wish to pursue lung biopsy at this time 9. Okay to discharge from pulmonary standpoint IMPRESSIONS 1. Left upper lobe lung mass New finding, not observed on CT of the chest in January 2017. Patient does have smoking history/risk factors for carcinoma. Patient does not wish to pursue CT-guided lung biopsy at this time. States he would not go through treatment even if cancer because quality of life is already poor with respiratory and GI issues. This can be followed up with as an outpatient if patient changes his mind. Please schedule appointment in the pulmonary clinic within 2 weeks with HIGHWALL DRILL OPERATOR. 2. Shortness of breath/end-stage COPD/chronic respiratory failure Patient does not appear to be an acute exacerbation at this time. Patient maintaining appropriate saturations on chronic 3 L. Interestingly, the patient had a walking oximetry 05/2017 that demonstrated no need for supplemental oxygen , however had significant exercise intolerance. He has been compliant with his Trilogy and baseline inhaler regimen at home and has been receiving Palliative care. Would recommend resuming home dose of 10 mg of prednisone. Obtain ambulatory pulse ox prior to d/c. Would expect ongoing episodes of sudden SOB requiring noninvasive pressure support for comfort/recovery. Patient does have significant element of anxiety as well, but has poor lung function so not abnormal for him to feel SOB. Given his newly found ELI mass, would expect SOB to progressively worsen if in fact it is cancer. The patient would be Hospice appropriate. 3. Anxiety/chronic pain/postnasal drip/diabetes/malnutrition/narcotic dependence/abdominal pain Complicates care, management, recovery, and prognosis. Continue home medications as indicated. Management of abdominal discomfort per hospitalist. Thank you for the opportunity to participate in this patient's care, please do not hesitate contact us with any further questions or concerns. This note was generated with [employer] dictation software. It may contain incorrect words, spelling, and punctuation that were not noted in checking the note before signing.
[2017-10-12] MEDS: predniSONE 10 MG Tablet PO (09:26)
[2017-10-12] MEDS: Enoxaparin 40 MG/0.4 ML Syringe SC (09:26)
[2017-10-12] MEDS: Folic Acid 1 MG Tablet PO (09:26)
[2017-10-12] MEDS: Ferrous Sulfate 325 MG Tablet PO (09:26)
--- NOTE | 2017-10-12 09:29 | PCM.PR.TP ---
Exercise - 90-Day Assessment - Exercise Prescription Mode:: NuStep, Arm Ergometer Frequency (x/week): 3 - 92% compliance; last attended 09/22/2017 and 10/06/2017. Patient admitted to hospital. Duration:: 30 Aerobic Exercise [30-60 min 3-7x/week]:: Met Target heart rate: 118-127 Sandrine MET Level:: 3.2 - Home Exercise Home Exercise?: No Disease Management - 90-Day - Hypoxemia Reassessment: Demonstrates knowledge of O2 Rx at rest, Demonstrates knowledge of O2 Rx with exercise, Using O2 as prescribed, Has home O2 as prescribed, Uses port O2 as prescribed - Medications Medication list reviewed:: Yes Taking medications 100% of the time:: Met Medication reassessment: Yes Pt demonstrates correct technique timing for MDI, Yes Pt demonstrates correct technique timing for DPI, Yes Pt demonstrates correct technique timing for NEB, Yes Pt demonstrates correct technique timing for spacer - returned demonstration - Bronchial Hygiene Bronchial Hygiene Plan: Yes Pt demonstrates correctly for effective cough, Yes Pt demo correct for device - returned use acapella, Yes Pt demo correct for improved hydration, Yes Pt demo correct for hand hygiene, Yes Pt demo correct for verbalize when to call MD Psychosocial - 90-Day - Assessment Depression reassess: Management of stress: Not progressing - easily losses control breathing resulting in panic episodes he refers to as exacerbations, Management of depression: Not progressing, Practicing interventions: Not progressing - Patient freequently requires re-education to use controlled breathing techniques and relaxation techniques during panic episodes. Tobacco - 90-Day Assessment - Program Goals Tobacco Program Goals: Complete smoking cessation. Attend education classes. Improve Knowledge Test score - Stage of Change Stages of Change:: Action - Learning Barriers Learning Barriers: Participates in education - Family Support Do you have family support?: Yes - Tobacco Use Tobacco Use: Cigarettes - Questioning if patient is still smoking although he denies smoking. Do you use smokeless tobacco?: No Nutrition/Wt Mgmt - 90-Day - Weight Management Weight:: 170 lb - 12% weight gain Weight Goals Progress:: Goal met - at ideal BMI 24% now Patient Health Questionnaire 90-Day Re-eval Assessment 1. Little interest or pleasure in doing things: Nearly every day 2. Feeling down, depressed, or hopeless: More than half the days 3. Trouble falling or staying asleep, or sleeping too much: More than half the days 4. Feeling tired or having little energy: Nearly every day 5. Poor appetite or overeating: Not at all 6. Feeling bad about yourself -- or that you are a failure or have let yourself or your family down: More than half the days 7. Trouble concentrating on things, such as reading the newspaper or watching television: Not at all 8. Moving or speaking so slowly that other people could have noticed. Or the opposite - being so fidgety or restless that you have been moving around a lot more than usual: Not at all 9. Thoughts that you would be better off , or of hurting yourself in some way: Not at all Total Score: 12 COPD Assessment Test [CAT] - Questions Never cough = 0, Cough all the time = 5: 1 No phlegm = 0, Chest full of phlegm = 5: 3 No chest tightness = 0, Chest very tight = 5: 4 No breathless w/exertion = 0, Very breathless w/exertion = 5: 5 No limitations w/activity = 0, Very limited w/activity = 5: 5 Confident leaving home = 0, Not at all confident = 5: 3 Sleep soundly = 0, Don't sleep soundly = 5: 3 Lots of energy = 0, No energy at all = 5: 4 Total CAT score:: 28 Self-Efficacy 90-Day Re-eval Assessment We would like to know how confident you are in doing certain activities. Please select your confidence level for:: Select your confidence level for the following using the scale 1-10 where 1 is not at all confident and 10 is totally confident. Your score is the average of all 6 responses. Fatigue: How confident are you that you can keep the fatigue caused by your disease from interfering with the things you want to do? Select Number: 3 Physical Discomfort or Pain: How confident are you that you can keep the physical discomfort or pain of your disease from interfering with the things you want to do? Select Number: 2 Emotional Distress: How confident are you that you can keep the emotional distress caused by your disease from interfering with the things you want to do? Select Number: 4 Other Symptoms or Health Problems: How confident are you that you can keep other symptoms or health problems from interfering with the things you want to do? Select Number: 9 Different Tasks and Activities: How confident are you that you can do the different tasks and activities needed to manage your health condition so as to reduce your need to see a doctor? Select Number: 7 Medication: How confident are you that you can do things other than just taking medication to reduce how much your illness affects your everyday life? Select Number: 6 Total Score:: 5
--- NOTE | 2017-10-12 09:42 | PR.DATECOV_ITS ---
Dates of Coverage Times for Dates Of Coverage; All dates of coverage are for physician supervision /durable medical equipment repairer for during the times of 08:00 AM through 4:30 PM. Effective Jan 20, 2013 our hours will be changing to 8:00 to 4:30 on Monday, Monday and Monday. First Date of the Month: 10/20/17 Last Date of the Month: 11/18/17
[2017-10-12] MEDS: Ipratropium/Albuterol Sulfate 3 ML AMPUL.NEB INHALATION ×4 (10:16→22:30)
[2017-10-12] MEDS: LORazepam 2 MG/ML Syringe 0.25 MG IV (10:27)
--- NOTE | 2017-10-12 10:30 | NURSING ---
pt c/o sob pt working hard to breath and purple in color. dr paul notifed that pt having trouble breathing and refusing bipap. ativan iv ordered. pt agreed to bi pap with ativan.
--- NOTE | 2017-10-12 10:52 | PCM.PROGNOTE ---
Patient Problems: Active and Suspected Problems (Last Reviewed 08/16/17 @ 18:42 by Erin Ortiz NP-C) Lung mass (Acute) COPD exacerbation (Acute) Subjective: He feels well this morning. Abdominal pain unchanged. He had an episode of dyspnea moments later. Osat 94% with O2 3 liter. Aerosol Tx given. He initially refused to wear BIPAP, but he complied later. He is comfortable with mask. Ativan 0.25 mg IVP x 1 given. Objective: - Physical Exam General: Alert, Oriented x3, Cooperative, Well developed, Well nourished HEENT: Atraumatic, PERRLA, EOMI Oral: Moist Mucosa, No Gingival or Mucosal Lesions/ Ulcerations Neck: Supple, No JVD Lungs: - - Mostly clear, diminished breath sounds at lower lung fileds. Mild wheezing at upper lung fileds bilaterally. Cardiovascular: Regular rate, Regular Rhythm, Normal S1, Normal S2, No murmurs, No Ectopic Activity Abdomen: Bowel Sounds Present, Soft, Non Tender, Non-Distended, No Hepato-splenomegaly Extremities: No clubbing, No cyanosis, No edema Skin: No rashes, No breakdown Musculoskeletal: No Tenderness to Palpation of Joints or Extremities, No Muscle Wasting Lymphatic: No Cervical, Supraclavicular, or Inguinal Adenopathy Neurological: Cranial nerves II-XII grossly intact, Neuro grossly intact Psych/Mental Status: Normal Affect - Physical Exam Vital Signs Temp Pulse Resp BP Pulse Ox 98 F 113 H 24 H 169/95 H 94 10/12/17 09:31 10/12/17 10:16 10/12/17 10:16 10/12/17 09:31 10/12/17 10:16 Oxygen Flow Rate (L/min) 3 Oxygen Delivery Method Nasal Cannula Weight: 170 lb Body Mass Index (BMI) 24.7 Intake and Output for Last 24 Hours 10/10/17 10/11/17 10/12/17 23:59 23:59 23:59 Intake Total 2475 / 2475 1526 / 1526 Output Total 1949 / 1949 2325 / 2325 825 / 825 Balance 525 / 525 -799 / -799 -825 / -825 Microbiology Past 72 Hours 10/11/17 18:00 Gram Stain - Preliminary Sputum, Expectorated/Coughed Diagnostic Data Abdomen/Pelvis CT 10/08/17 18:56 IMPRESSION: No acute abdominal or pelvic pathology demonstrated on this noncontrast CT. Stable postsurgical changes from a colectomy with a left lower quadrant ileostomy placed. Electronically Signed: Dl Castanedadanaaron, at 20:51 EDT Tel , Service support , Chest X-Ray 10/08/17 19:20 IMPRESSION: 1. The lung bases are not visible on this study. 2. Questionable left-sided pulmonary nodules. 3. COPD. Electronically Signed: Guera Meyers MD at 19:47 EDT , Service support , Chest CTA 10/09/17 00:29 IMPRESSION: 1. No CTA demonstrated pulmonary embolism or arterial dissection. 2. Spiculated left upper lobe mass likely represents a bronchogenic carcinoma. 3. COPD. 4. Right-sided renal cyst. Electronically Signed: Guera Meyers MD at 2:34 EDT , Service support , Medical Necessity - Tobacco Use Smoking Status: Former smoker Tobacco Use: Cigarettes Assessment/Plan Active and Suspected Problems (Last Reviewed 08/16/17 @ 18:42 by Erin Ortiz NP-C) Lung mass (Acute) COPD exacerbation (Acute) Patient is a 61-year-old gentleman with history of chronic hypoxic respiratory failure on baseline home O2 who presented with shortness of breath and assessment of COPD with acute exacerbation was made admitted to regular nursing floor for subsequent management. He had persisting dyspnea. D-dimer was elevated, underwent CTA of chest on 10/09/17. CTA was negative for PE, but found to have 2.5 cm spiculated mass in the ELI, suspicious for bronchogenic carcinoma. The finding was discussed with patient extensively, including possible pathology and associated treatment plan. After discussion, he expressed that he would not want to pursue any treatment or diagnostic studies due to his underling problems with advanced COPD. His decision is reasonable. Pulmonary recommended for CT guided biopsy as next step if he changes his mind. Due to persisting dyspnea and abdominal pain, rehab at [facility] was considered. PT/OT in progress. 1. COPD with probable acute exacerbation. Started on Solu Medrol initially, changed to oral prednisone at home dose. Started on azithromycin, completed 3 days. On Bronchodilator, DuoNeb Q4H [place] and albuterol [place] prn. Pulmonary consultation appreciated. He may have components anxiety / panic attack as recurrent problems of dyspnea. He has stable pulse ox and recovers in short period of time. Plan for ambulatory pulse ox prior to discharge per pulmonary recommendation. He has home oxygen, Trilogy ventilator for BiPAP, and aerosol treatment. He takes prednisone 10 mg po daily. 2. Chronic hypoxic respiratory failure. On home oxygen 3 liter via NC. 3. Lung mass, ELI. Spiculated left upper lobe mass likely represents a bronchogenic carcinoma. Pulmonary consultation appreciated. At this time, patient does not want to pursue further treatment because of current poor quality of life due to underling lung problems and GI issues with history of total colectomy / ileostomy. He may be a poor candidate for treatment. Pulmonary recommended for CT guided biopsy if patient changes his mind. Hospice care was addressed also. He is currently following palliative care for his chronic pain. He would like to discuss with existing palliative care regarding hospice care at next visit. 4. Diabetes mellitus type 2 diet controlled 5. H/O ulcerative colitis. S/P multiple surgeries prior to total colectomy and ileostomy. 6. Chronic pain. On methadone and oxycodone. He has history of chronic pain from multiple surgeries in the past. He is C/O left lower chest wall and left upper abdominal pain, worsen with cough. CT abd/pelvis repeated on 10/08/17, no additional findings or any acute pathology. He follows palliative care. PT/OT evaluate, possible rehab if he is not functional for ADL. 7. Anxiety. On Ativan 0.5 mg po q4h prn. DVT prophylaxis; enoxaparin. GI prophylaxis: PPI po. He is full code. Disposition: Rehab at [facility] when available. Code Visit Inpatient E&M: 09634 [facility] Hosp L3
--- NOTE | 2017-10-12 11:15 | PN_ITS ---
Patient Problems: Active and Suspected Problems (Last Reviewed 08/16/17 @ 18:42 by Erin Ortiz NP-C) Lung mass (Acute) COPD exacerbation (Acute) Subjective: He feels well this morning. Abdominal pain unchanged. He had an episode of dyspnea moments later. Osat 94% with O2 3 liter. Aerosol Tx given. He initially refused to wear BIPAP, but he complied later. He is comfortable with mask. Ativan 0.25 mg IVP x 1 given. Objective: - Physical Exam General: Alert, Oriented x3, Cooperative, Well developed, Well nourished HEENT: Atraumatic, PERRLA, EOMI Oral: Moist Mucosa, No Gingival or Mucosal Lesions/ Ulcerations Neck: Supple, No JVD Lungs: - - Mostly clear, diminished breath sounds at lower lung fileds. Mild wheezing at upper lung fileds bilaterally. Cardiovascular: Regular rate, Regular Rhythm, Normal S1, Normal S2, No murmurs, No Ectopic Activity Abdomen: Bowel Sounds Present, Soft, Non Tender, Non-Distended, No Hepato- splenomegaly Extremities: No clubbing, No cyanosis, No edema Skin: No rashes, No breakdown Musculoskeletal: No Tenderness to Palpation of Joints or Extremities, No Muscle Wasting Lymphatic: No Cervical, Supraclavicular, or Inguinal Adenopathy Neurological: Cranial nerves II-XII grossly intact, Neuro grossly intact Psych/Mental Status: Normal Affect - Physical Exam Vital Signs Temp Pulse Resp BP Pulse Ox 98 F 113 H 24 H 169/95 H 94 10/12/17 09:31 10/12/17 10:16 10/12/17 10:16 10/12/17 09:31 10/12/17 10:16 Oxygen Flow Rate (L/min) 3 Oxygen Delivery Method Nasal Cannula Weight: 170 lb Body Mass Index (BMI) 24.7 Intake and Output for Last 24 Hours 10/10/17 10/11/17 10/12/17 23:59 23:59 23:59 Intake Total 2475 / 2475 1526 / 1526 Output Total 1949 / 1949 2325 / 2325 825 / 825 Balance 525 / 525 -799 / -799 -825 / -825 Microbiology Past 72 Hours 10/11/17 18:00 Gram Stain - Preliminary Sputum, Expectorated/Coughed Diagnostic Data Abdomen/Pelvis CT 10/08/17 18:56 IMPRESSION: No acute abdominal or pelvic pathology demonstrated on this noncontrast CT. Stable postsurgical changes from a colectomy with a left lower quadrant ileostomy placed. Electronically Signed: Dl Castanedadanaaron, at 20:51 EDT Tel , Service support , Chest X-Ray 10/08/17 19:20 IMPRESSION: 1. The lung bases are not visible on this study. 2. Questionable left-sided pulmonary nodules. 3. COPD. Electronically Signed: Guera Meyers MD at 19:47 EDT , Service support , Chest CTA 10/09/17 00:29 IMPRESSION: 1. No CTA demonstrated pulmonary embolism or arterial dissection. 2. Spiculated left upper lobe mass likely represents a bronchogenic carcinoma. 3. COPD. 4. Right-sided renal cyst. Electronically Signed: Guera Meyers MD at 2:34 EDT , Service support , Medical Necessity - Tobacco Use Smoking Status: Former smoker Tobacco Use: Cigarettes Assessment/Plan Active and Suspected Problems (Last Reviewed 08/16/17 @ 18:42 by Erin Ortiz NP-C) Lung mass (Acute) COPD exacerbation (Acute) Patient is a 61-year-old gentleman with history of chronic hypoxic respiratory failure on baseline home O2 who presented with shortness of breath and assessment of COPD with acute exacerbation was made admitted to regular nursing floor for subsequent management. He had persisting dyspnea. D-dimer was elevated, underwent CTA of chest on 10/09. CTA was negative for PE, but found to have 2.5 cm spiculated mass in the ELI, suspicious for bronchogenic carcinoma. The finding was discussed with patient extensively, including possible pathology and associated treatment plan. After discussion, he expressed that he would not want to pursue any treatment or diagnostic studies due to his underling problems with advanced COPD. His decision is reasonable. Pulmonary recommended for CT guided biopsy as next step if he changes his mind. Due to persisting dyspnea and abdominal pain, rehab at [facility] was considered. PT/ OT in progress. 1. COPD with probable acute exacerbation. Started on Solu Medrol initially, changed to oral prednisone at home dose. Started on azithromycin, completed 3 days. On Bronchodilator, DuoNeb Q4H [place] and albuterol [place] prn. Pulmonary consultation appreciated. He may have components anxiety / panic attack as recurrent problems of dyspnea. He has stable pulse ox and recovers in short period of time. Plan for ambulatory pulse ox prior to discharge per pulmonary recommendation. He has home oxygen, Trilogy ventilator for BiPAP, and aerosol treatment. He takes prednisone 10 mg po daily. 2. Chronic hypoxic respiratory failure. On home oxygen 3 liter via NC. 3. Lung mass, ELI. Spiculated left upper lobe mass likely represents a bronchogenic carcinoma. Pulmonary consultation appreciated. At this time, patient does not want to pursue further treatment because of current poor quality of life due to underling lung problems and GI issues with history of total colectomy / ileostomy. He may be a poor candidate for treatment. Pulmonary recommended for CT guided biopsy if patient changes his mind. Hospice care was addressed also. He is currently following palliative care for his chronic pain. He would like to discuss with existing palliative care regarding hospice care at next visit. 4. Diabetes mellitus type 2 diet controlled 5. H/O ulcerative colitis. S/P multiple surgeries prior to total colectomy and ileostomy. 6. Chronic pain. On methadone and oxycodone. He has history of chronic pain from multiple surgeries in the past. He is C/O left lower chest wall and left upper abdominal pain, worsen with cough. CT abd/pelvis repeated on 10/08/17, no additional findings or any acute pathology. He follows palliative care. PT/OT evaluate, possible rehab if he is not functional for ADL. 7. Anxiety. On Ativan 0.5 mg po q4h prn. DVT prophylaxis; enoxaparin. GI prophylaxis: PPI po. He is full code. Disposition: Rehab at [facility] when available. Code Visit Inpatient E&M: 13814 [facility] Hosp L3
--- NOTE | 2017-10-12 13:03 | CASEMGMT ---
Social Work Note SW met with pt to confirm discharge plans. Pt confirms that he is interested in SNF placement at discharge. Pt states that his first choice is [facility] and that his second choice is [facility]. SW informed pt that this worker will have to check with bed availability with [facility]. SW explained to pt pre-cert process. Pt states understanding. FLORA placed a call to Brandy in [facility]CU. Per Brandy pt is currently receiving TPN and she is unable to accept pt due to receiving TPN. FLORA sent referral to Nathalie at [facility]. SW waiting to hear back from Nathalie in regards to referral. FLORA will continue to follow along to assist with discharge planning. Plan: [facility] pending acceptance Loyda Terrell POLISHER BALANCE SCREWHEAD, LARGE ANIMAL HUSBANDRY TECHNICIAN
--- NOTE | 2017-10-12 14:58 | CASEMGMT ---
Addendum entered by Loyda Terrell 10/12/17 15:19: SW received call from Brandy in TCU stating that if dietary and the doctor are recommending pt doesn't need TPN and that pt is agreeable to not being in TPN then she can accept pt and will start pre-cert. SW met with pt. SW explained to pt that marija and Dr. Rondon are stating that pt doesn't need TPN at this time. Pt states that he would rather be on oral diet than TPN. SW explained to pt that TCU will not accept pt if he is wanting/needing TPN. SW states that this worker has not yet found an accepting facility and that pre-cert will need to be started soon in hopes that pt won't be here for the weekend. Pt states understanding. Pt is agreeable to going to TCU without TPN. SW placed a call to Brandy in TCU stating that pt is agreeable to TCU without TPN. SW will continue to follow to assist with discharge planning. Plan: TCU pending pre-cert Original Note: Social Work Note Dietary informed this worker that pt receives TPN at home through Dr. Rodriguez at [facility]. Dietary states that they have never prescribed TPN for pt and they recommend that pt doesn't need TPN. Dietary states that pt is eating fine and doesn't need TPN. This worker placed a call to Leela BRADFORD on PCU where Dr. Rondon is currently at. Dr. Rondon states that he doesn't think pt needs TPN and that he will do fine without TPN. FLORA called Brandy in TCU and left her a message regarding this. FLORA waiting for call back from Brandy. Plan: Placement at discharge pending acceptance Loyda Terrell IGNITER CAPPER, BACK TENDER CYLINDER
--- NOTE | 2017-10-12 15:09 | NS ---
Pt states he follows w/ Dr. Gokul Rodriguez at [facility] for management of home TPN. Pt is able to tolerate an oral diet and has gained ~8 kg since Apr. admission. Pt has an appropriate BMI and appears well nourished. At this time TPN does not appear warranted- other nutritional interventions including smaller, more frequent meals, oral nutrition supplements and fortified foods may be most appropriate to meet pt's nutritional needs. Discussed w/ pt who verbalizes understanding. Pt would prefer oral diet versus continuing TPN if possible. Discussed w/ LOLLY Scales who is working on discharge planning. If home TPN to be continued, home TPN would need to be added to pt's MAR per pharmacy. Discussed w/ information technology security analyst Marie.
--- NOTE | 2017-10-12 16:26 | CASEMGMT ---
Social Work Note SW received call from Nathalie at [facility] stating that at this time she is unable to accept pt. SW will continue to follow along to assist with discharge planning. Plan: TCU pending pre-cert Loyda Terrell SENIOR SQL DATABASE DEVELOPER, DIVISION ROAD SUPERVISOR
[2017-10-12] MEDS: Naproxen 250 MG Tablet PO (16:31)
--- NOTE | 2017-10-12 22:36 | CPS ---
pt's son brought in home Bipap Unit
[2017-10-13] MEDS: LORazepam 0.5 MG Tablet PO ×3 (02:53→12:09)
[2017-10-13] MEDS: morphine (oral solution) 10MG/0.5ML Syringe 10 MG PO ×3 (02:54→12:09)
[2017-10-13 03:01] VITALS: BP 145/93; PULSE 75; RESP 20; TEMP 36.7; O2SAT 98
--- NOTE | 2017-10-13 07:16 | PN_ITS ---
Patient Problems: Active and Suspected Problems (Last Reviewed 08/16/17 @ 18:42 by ABBE Jean) Lung mass (Acute) COPD exacerbation (Acute) Subjective: The patient was seen and examined at the bedside this morning. Events from the last 24 hours have been reviewed. The patient is currently afebrile, hemodynamically stable and maintaining appropriate oxygen saturations on 2 L/ min via nasal cannula. The patient utilized his home BiPAP overnight. The patient is currently overall net -709 mL's for the admission. Objective: The patient's most recent lab work, culture data and imaging studies have all been personally reviewed. Rapid influenza screen was negative. Sputum cultures currently pending. CTA chest revealed no evidence for pulmonary embolism. There was evidence of a spiculated left upper lobe lung lesion and radiographic sequelae of COPD. - Physical Exam General: Alert, Cooperative, No apparent distress HEENT: Atraumatic, PERRLA, Normocephalic Oral: No Gingival or Mucosal Lesions/ Ulcerations Neck: Supple, No Nodes, Trachea Midline Lungs: No rhonchi, No wheeze, No rales, Diminished Cardiovascular: Regular rate, Regular Rhythm, Normal S1, Normal S2, No murmurs Abdomen: Bowel Sounds Present, Soft, Non Tender Extremities: No cyanosis, No edema, Clubbing Skin: No breakdown Musculoskeletal: No Muscle Wasting Lymphatic: No Cervical, Supraclavicular, or Inguinal Adenopathy Neurological: Neuro grossly intact Psych/Mental Status: Anxious Vital Signs Temp Pulse Resp BP Pulse Ox 98.1 F 75 20 H 145/93 H 98 10/13/17 03:01 10/13/17 03:01 10/13/17 03:01 10/13/17 03:01 10/13/17 03:01 Oxygen Flow Rate (L/min) 2 Oxygen Delivery Method Bi-pap Weight: 170 lb 0.01 oz Body Mass Index (BMI) 24.7 Intake and Output for Last 24 Hours 10/11/17 10/12/17 10/13/17 23:59 23:59 23:59 Intake Total 1526 / 1526 820 / 820 120 / 120 Output Total 2325 / 2325 2225 / 2225 650 / 650 Balance -799 / -799 -1405 / -1405 -530 / -530 Microbiology Past 72 Hours 10/11/17 18:00 Gram Stain - Final Sputum, Expectorated/Coughed Microbiology 10/11/17 18:00 Sputum, Expectorated/Coughed Gram Stain - Final Clinical Impression(s) from Imaging Studies Abdomen/Pelvis CT 10/08/17 18:56 IMPRESSION: No acute abdominal or pelvic pathology demonstrated on this noncontrast CT. Stable postsurgical changes from a colectomy with a left lower quadrant ileostomy placed. Electronically Signed: Dl Quinonez, at 20:51 EDT Tel , Service support , Chest X-Ray 10/08/17 19:20 IMPRESSION: 1. The lung bases are not visible on this study. 2. Questionable left-sided pulmonary nodules. 3. COPD. Electronically Signed: Guera Meyers MD at 19:47 EDT , Service support , Chest CTA 10/09/17 00:29 IMPRESSION: 1. No CTA demonstrated pulmonary embolism or arterial dissection. 2. Spiculated left upper lobe mass likely represents a bronchogenic carcinoma. 3. COPD. 4. Right-sided renal cyst. Electronically Signed: Guera Meyers MD at 2:34 EDT , Service support , Medical Necessity - Tobacco Use Smoking Status: Former smoker Tobacco Use: Cigarettes Assessment/Plan Active and Suspected Problems (Last Reviewed 08/16/17 @ 18:42 by Erin Ortiz NP-C) Lung mass (Acute) COPD exacerbation (Acute) RECOMMENDATIONS: 1. Continue aerosol treatments and baseline prednisone dose. 2. Wean supplemental oxygen as tolerated 3. Perform walking oximetry study prior to consideration for discharge from the hospital. 4. Please ensure that the patient has follow-up scheduled with our nurse practitioner in the pulmonary medicine clinic within 2 weeks of his discharge. IMPRESSIONS: 1. Shortness of breath/severe COPD without exacerbation The patient has baseline advanced stage COPD, for which he is currently prescribed maximum triple therapy on an outpatient basis. In addition, he is currently prescribed a trilogy noninvasive ventilator to be used in his home environment. The patient also has a great deal of baseline chronic pain and anxiety, for which he is active with palliative care. I suspect that the major component of his presenting dyspnea was likely anxiety mediated. His CTA chest revealed no PE or evidence of a pulmonary infectious process. He has no evidence of a leukocytosis, fever or cough. Therefore, antibiotics have been discontinued. The patient would likely benefit from a long-acting anxiolytic, which should ideally be managed by palliative care. Continue baseline prednisone dose of 10 mg daily. Perform walking oximetry study prior to consideration for discharge from the hospital. Please ensure that the patient has follow-up with our nurse practitioner within 2 weeks of his discharge from the hospital. 2. New left upper lobe spiculated lung lesion The patient's recent CTA chest revealed evidence of a 2.5 cm left upper lobe spiculated lesion, which was not evident on prior chest imaging from 2017. These findings were discussed with the patient at length. I explained to him that the most definitive means of establishing a diagnosis would be through direct tissue biopsy. Following a discussion regarding the risks and benefits of such a procedure, the patient states that he would like to hold off on further workup at this time. In addition, he does not feel that he would even want to entertain the idea of treatment, should the radiographic abnormality represent cancer. If the patient does change his mind, a CT-guided lung biopsy can be set up on an outpatient basis. This note was generated with [employer] dictation software. It may contain incorrect words, spelling, and punctuation that were not noted in checking the note before signing. Code Visit Inpatient E&M: 92636 Subs Hosp L2
[2017-10-13] MEDS: oxyCODONE 5 MG Tablet 10 MG PO (07:31)
[2017-10-13 07:47] VITALS: BP 153/89; PULSE 83; RESP 20; TEMP 36.9; O2SAT 95
[2017-10-13] MEDS: Ferrous Sulfate 325 MG Tablet PO (08:01)
[2017-10-13] MEDS: predniSONE 10 MG Tablet PO (08:01)
[2017-10-13] MEDS: Folic Acid 1 MG Tablet PO (08:01)
[2017-10-13] MEDS: Ipratropium/Albuterol Sulfate 3 ML AMPUL.NEB INHALATION ×2 (08:55→12:25)
--- NOTE | 2017-10-13 08:55 | NURSING ---
Ostomy appliance remains intact. pt denies needs at this time.
[2017-10-13 08:57] VITALS: PULSE 86; RESP 16
[2017-10-13 08:58] VITALS: O2SAT 93
[2017-10-13] MEDS: guaiFENesin Dm 10 ML UDC 20 ML PO (09:31)
[2017-10-13] MEDS: Enoxaparin 40 MG/0.4 ML Syringe SC (09:35)
[2017-10-13] MEDS: Pantoprazole Sodium 20 MG Tablet PO (09:38)
--- NOTE | 2017-10-13 11:01 | CASEMGMT ---
Addendum entered by Loyda Terrell 10/13/17 11:13: GRETA Serna placed a call to GRETA Nunez as Dr. Rondon is on PCU. GRETA Nunez to update Dr. Rondon that pre-cert was obtained. Original Note: Social Work Note SW received call from Brandy in TCU that pre-cert was obtained. FLORA informed Brandy that pt should be able to discharge today. Plan: TCU today Loyda Terrell SUPPORT ASSOCIATE, FLASH OVEN OPERATOR
--- NOTE | 2017-10-13 12:04 | CASEMGMT ---
Addendum entered by Loyda Terrell 10/13/17 12:18: Transfer to extended care facility, signed medication list and scripts originals in SNF folder and copies in pt's chart. Original Note: Social Work Note Pt is being discharged to TCU today. SW updated pt of this. This worker asked if pt would like this worker to call any family or friends and pt denied. He states that he will call his brother. Pt denied additional needs or concerns at this time. Plan: TCU today Loyda Terrell TAPING SUPERVISOR, COIN BOX COLLECTOR
--- NOTE | 2017-10-13 12:10 | PCM.TXEXTCAR ---
- Diet 10/09/17 08:19 Diet: Regular Diet Type of Dietary Supplement:: Ensure Complete Is pt able to select menu?: Yes - Routine Orders/Code Status Code Status: Full Code - Wound(s) Rt forearm Wound Type: Abrasion - Allergies/Procedures Done in Hospital Allergies/Adverse Reactions: Allergies sulfamethoxazole [From Bactrim] Allergy (Verified 10/08/17 18:28) Rash trimethoprim [From Bactrim] Allergy (Verified 10/08/17 18:28) Rash - Type of Care/Length of Stay Estimated LOS: Convalescent Care Less Than 30 days Type of Care Needed: Skilled Rehab Potential: Fair Prognosis: Fair - Additional Orders/Day of Discharge Day of Discharge: 10/13/17 - Dietary and Speech Recommendations Dietitian Recommendations/Changes: Rec daily wts. Rec continue regular diet and Ensure Enlive w/ meals- pt does not want supplement w/ medpass. Continuation of home TPN does not appear warranted at this time, see comments above. If pt to continue w/ home TPN, pharmacy requesting home TPN be added to MAR by physician. - Follow Up Care Primary Care Physician: Edwin Benton MD [Primary Care Provider] - Please follow up with your Primary Care Physician in: To be determined.
--- NOTE | 2017-10-13 12:14 | PCM.DC.SUM ---
Discharge Date and Diagnosis - Problem List Patient Problems: Active and Suspected Problems (Last Reviewed 08/16/17 @ 18:42 by ABBE Jean) Lung mass (Acute) COPD exacerbation (Acute) Date of Admission: 10/08/17 Date of Discharge: 10/13/17 - Primary Discharge Diagnosis Active and Suspected Problems (Last Reviewed 08/16/17 @ 18:42 by ABBE Jean) Lung mass (Acute) COPD exacerbation (Acute) - Secondary Discharge Diagnosis Chronic Problems (Last Reviewed 08/16/17 @ 18:42 by ABBE Jean) Chronic pain (Chronic) Stage 4 very severe COPD by GOLD classification (Chronic) Tobacco dependence in remission (Chronic) Iron deficiency anemia (Chronic) Chronic respiratory failure with hypoxia (Chronic) Protein malnutrition (Chronic) Anxiety (Chronic) Dysphagia (Chronic) Diabetes type 2, controlled (Chronic) Narcotic dependence (Chronic) History of total colectomy (Chronic) Ileostomy present (Chronic) COPD (chronic obstructive pulmonary disease) (Chronic) Ulcerative colitis (Chronic) sp colectomy 1989; sp ileostomy Hospital Course and Treatment Operations: None Procedures: None Summary of Care Provided: Patient is a 61-year-old gentleman with history of chronic hypoxic respiratory failure on baseline home O2 who presented with shortness of breath and assessment of COPD with acute exacerbation was made admitted to regular nursing floor for subsequent management. He had persisting dyspnea. D-dimer was elevated, underwent CTA of chest on 10/09/17. CTA was negative for PE, but found to have 2.5 cm spiculated mass in the ELI, suspicious for bronchogenic carcinoma. The finding was discussed with patient extensively, including possible pathology and associated treatment plan. After discussion, he expressed that he would not want to pursue any treatment or diagnostic studies due to his underling problems with advanced COPD. His decision is reasonable. Pulmonary recommended for CT guided biopsy as next step if he changes his mind. Due to persisting dyspnea and abdominal pain, continue rehab at [facility]. 1. COPD with probable acute exacerbation. Started on Solu Medrol initially, changed to oral prednisone at home dose. Started on azithromycin, completed 3 days. On Bronchodilator, DuoNeb Q4H WA and albuterol MN prn. Pulmonary consultation appreciated. He may have components anxiety / panic attack, causing recurrent problems of dyspnea. He has stable pulse ox and recovers in short period of time after each episodes, not consistent with exacerbation of COPD. He has home oxygen, Trilogy ventilator for BiPAP, and aerosol treatment. He takes prednisone 10 mg po daily. When he goes home from [facility], he needs reevaluation of ambulatory oxygen. 2. Chronic hypoxic respiratory failure. On home oxygen 3 liter via NC. 3. Lung mass, ELI. Spiculated left upper lobe mass likely represents a bronchogenic carcinoma. Pulmonary consultation appreciated. At this time, patient does not want to pursue further treatment because of current poor quality of life due to underling lung problems and GI issues with history of total colectomy / ileostomy. He may be a poor candidate for treatment. Pulmonary recommended for CT guided biopsy if patient changes his mind. Hospice care was addressed also. He is currently following palliative care for his chronic pain. He would like to discuss with existing palliative care regarding hospice care at next visit. 4. Diabetes mellitus type 2 diet controlled 5. H/O ulcerative colitis. S/P multiple surgeries prior to total colectomy and ileostomy. 6. Chronic pain. On methadone and oxycodone. He has history of chronic pain from multiple abdominal surgeries in the past. He is C/O left lower chest wall and left upper abdominal pain, worsen with cough. CT abd/pelvis repeated on 10/08/17, no additional findings or any acute pathology. He follows palliative care. Continue current regimen of pain medications. 7. Anxiety. On Ativan 0.5 mg po q4h prn. He is having problems with recurrent anxiety attacks, aggravating his shortness of breath symptoms. He has been currently tolerating well with no significant hypersomnolence. Increase Ativan to 1 mg po Q6H prn. Consider changing over to long acting benzodiazepine if it is not effective. DVT prophylaxis; enoxaparin. GI prophylaxis: PPI po. He is full code. Disposition: Rehab at [facility]. Home Medications: Medications to take at Discharge Albuterol Inhaler [Ventolin Hfa] 2 puff INHALATION Q4H PRN PRN 01/25/17 Cyanocobalamin [Vitamin B12] 1,000 mcg SC Q30D 01/25/17 Ergocalciferol [Vitamin D] 50,000 unit PO MO 01/25/17 Ferrous Sulfate 325 mg PO DAILY@79901/25/17 Folic Acid 1 mg PO DAILY@79901/25/17 Naproxen 1 tab PO BID PRN 04/25/17 Albuterol Aerosols [Ventolin Aerosols] 2.5 mg INHALATION Q2H PRN PRN #1 box 04/27/17 fluticasone 100 mcg-umeclid 62.5 mcg-vilant 25 mcg powd for inhalation 1 inh INHALATION QDAY #60 ea 06/05/17 prednisone 10 mg tablet 10 mg PO QDAY #30 tab 07/31/17 fluticasone 50 mcg/actuation nasal spray,suspension 2 spray INTRANASAL QDAY #16 g 08/16/17 Guaifenesin/Dextromethorphan [Guaifenesin Dm Syrup] 20 ml PO Q4H PRN 10/08/17 Lorazepam [Ativan] 0.5 mg PO Q4H PRN 10/08/17 Lorazepam [Ativan] 1 mg PO Q6H PRN #20 tab 10/13/17 Methadone HCl [Methadone Oral Concentrate] 0.5 ml PO DAILY #5 ml 10/13/17 Oxycodone [Oxyfast] 10 mg PO Q6H PRN #10 ml 10/13/17 morphine solution (IR) [Roxanol (IR oral solution)] 10 mg PO Q4H PRN PRN #10 ml 10/13/17 Following Prescrptions Were Given to Patient: morphine solution (IR) [Roxanol (IR oral solution)] 10 mg PO Q4H PRN PRN #10 ml PRN Reason: SOB &/OR WHEEZING Methadone HCl [Methadone Oral Concentrate] 0.5 ml PO DAILY #5 ml Lorazepam [Ativan] 1 mg PO Q6H PRN #20 tab PRN Reason: ANXIETY Oxycodone [Oxyfast] 10 mg PO Q6H PRN #10 ml PRN Reason: Pain Primary Care Physician: Edwin Benton MD [Primary Care Provider] - Please follow up with your Primary Care Physician in: To be determined. Medical Necessity - Tobacco Use Smoking Status: Former smoker Tobacco Use: Cigarettes Meaningful Use Info Meaningful Use Diagnoses (Choose all that apply): None applicable Code Visit Inpatient E&M: 26200 [facility] Hosp
--- NOTE | 2017-10-13 12:21 | DS.PCM_ITS ---
Discharge Date and Diagnosis - Problem List Patient Problems: Active and Suspected Problems (Last Reviewed 08/16/17 @ 18:42 by ABBE Jean) Lung mass (Acute) COPD exacerbation (Acute) Date of Admission: 10/08/17 Date of Discharge: 10/13/17 - Primary Discharge Diagnosis Active and Suspected Problems (Last Reviewed 08/16/17 @ 18:42 by ABBE Jean) Lung mass (Acute) COPD exacerbation (Acute) - Secondary Discharge Diagnosis Chronic Problems (Last Reviewed 08/16/17 @ 18:42 by ABBE Jean) Chronic pain (Chronic) Stage 4 very severe COPD by GOLD classification (Chronic) Tobacco dependence in remission (Chronic) Iron deficiency anemia (Chronic) Chronic respiratory failure with hypoxia (Chronic) Protein malnutrition (Chronic) Anxiety (Chronic) Dysphagia (Chronic) Diabetes type 2, controlled (Chronic) Narcotic dependence (Chronic) History of total colectomy (Chronic) Ileostomy present (Chronic) COPD (chronic obstructive pulmonary disease) (Chronic) Ulcerative colitis (Chronic) sp colectomy 1989; sp ileostomy Hospital Course and Treatment Operations: None Procedures: None Summary of Care Provided: Patient is a 61-year-old gentleman with history of chronic hypoxic respiratory failure on baseline home O2 who presented with shortness of breath and assessment of COPD with acute exacerbation was made admitted to regular nursing floor for subsequent management. He had persisting dyspnea. D-dimer was elevated, underwent CTA of chest on 10/09. CTA was negative for PE, but found to have 2.5 cm spiculated mass in the ELI, suspicious for bronchogenic carcinoma. The finding was discussed with patient extensively, including possible pathology and associated treatment plan. After discussion, he expressed that he would not want to pursue any treatment or diagnostic studies due to his underling problems with advanced COPD. His decision is reasonable. Pulmonary recommended for CT guided biopsy as next step if he changes his mind. Due to persisting dyspnea and abdominal pain, continue rehab at [facility]. 1. COPD with probable acute exacerbation. Started on Solu Medrol initially, changed to oral prednisone at home dose. Started on azithromycin, completed 3 days. On Bronchodilator, DuoNeb Q4H WA and albuterol MN prn. Pulmonary consultation appreciated. He may have components anxiety / panic attack, causing recurrent problems of dyspnea. He has stable pulse ox and recovers in short period of time after each episodes, not consistent with exacerbation of COPD. He has home oxygen, Trilogy ventilator for BiPAP, and aerosol treatment. He takes prednisone 10 mg po daily. When he goes home from [facility], he needs reevaluation of ambulatory oxygen. 2. Chronic hypoxic respiratory failure. On home oxygen 3 liter via NC. 3. Lung mass, ELI. Spiculated left upper lobe mass likely represents a bronchogenic carcinoma. Pulmonary consultation appreciated. At this time, patient does not want to pursue further treatment because of current poor quality of life due to underling lung problems and GI issues with history of total colectomy / ileostomy. He may be a poor candidate for treatment. Pulmonary recommended for CT guided biopsy if patient changes his mind. Hospice care was addressed also. He is currently following palliative care for his chronic pain. He would like to discuss with existing palliative care regarding hospice care at next visit. 4. Diabetes mellitus type 2 diet controlled 5. H/O ulcerative colitis. S/P multiple surgeries prior to total colectomy and ileostomy. 6. Chronic pain. On methadone and oxycodone. He has history of chronic pain from multiple abdominal surgeries in the past. He is C/O left lower chest wall and left upper abdominal pain, worsen with cough. CT abd/pelvis repeated on 10/08/17, no additional findings or any acute pathology. He follows palliative care. Continue current regimen of pain medications. 7. Anxiety. On Ativan 0.5 mg po q4h prn. He is having problems with recurrent anxiety attacks, aggravating his shortness of breath symptoms. He has been currently tolerating well with no significant hypersomnolence. Increase Ativan to 1 mg po Q6H prn. Consider changing over to long acting benzodiazepine if it is not effective. DVT prophylaxis; enoxaparin. GI prophylaxis: PPI po. He is full code. Disposition: Rehab at [facility]. Home Medications: Medications to take at Discharge Albuterol Inhaler [Ventolin Hfa] 2 puff INHALATION Q4H PRN PRN 01/25/17 Cyanocobalamin [Vitamin B12] 1,000 mcg SC Q30D 01/25/17 Ergocalciferol [Vitamin D] 50,000 unit PO MO 01/25/17 Ferrous Sulfate 325 mg PO DAILY@79901/25/17 Folic Acid 1 mg PO DAILY@79901/25/17 Naproxen 1 tab PO BID PRN 04/25/17 Albuterol Aerosols [Ventolin Aerosols] 2.5 mg INHALATION Q2H PRN PRN #1 box 12/05 fluticasone 100 mcg-umeclid 62.5 mcg-vilant 25 mcg powd for inhalation 1 inh INHALATION QDAY #60 ea 06/05/17 prednisone 10 mg tablet 10 mg PO QDAY #30 tab 07/31/17 fluticasone 50 mcg/actuation nasal spray,suspension 2 spray INTRANASAL QDAY #16 g 08/16/17 Guaifenesin/Dextromethorphan [Guaifenesin Dm Syrup] 20 ml PO Q4H PRN 10/08/17 Lorazepam [Ativan] 0.5 mg PO Q4H PRN 10/08/17 Lorazepam [Ativan] 1 mg PO Q6H PRN #20 tab 10/13/17 Methadone HCl [Methadone Oral Concentrate] 0.5 ml PO DAILY #5 ml 10/13/17 Oxycodone [Oxyfast] 10 mg PO Q6H PRN #10 ml 10/13/17 morphine solution (IR) [Roxanol (IR oral solution)] 10 mg PO Q4H PRN PRN #10 ml 10/13/17 Following Prescrptions Were Given to Patient: morphine solution (IR) [Roxanol (IR oral solution)] 10 mg PO Q4H PRN PRN #10 ml PRN Reason: SOB &/OR WHEEZING Methadone HCl [Methadone Oral Concentrate] 0.5 ml PO DAILY #5 ml Lorazepam [Ativan] 1 mg PO Q6H PRN #20 tab PRN Reason: ANXIETY Oxycodone [Oxyfast] 10 mg PO Q6H PRN #10 ml PRN Reason: Pain Primary Care Physician: Edwin Benton MD [Primary Care Provider] - Please follow up with your Primary Care Physician in: To be determined. Medical Necessity - Tobacco Use Smoking Status: Former smoker Tobacco Use: Cigarettes Meaningful Use Info Meaningful Use Diagnoses (Choose all that apply): None applicable Code Visit Inpatient E&M: 32454 [facility] Hosp
[2017-10-13 12:26] VITALS: PULSE 81; RESP 16
== END 2017-10-13 13:04 | DRG 191 ==
LOC: ED 21:15 → MS3 22:27
PROVIDERS: Admitting Provider Internal Medicine; Emergency Provider Emergency Medicine; Family Provider Family Medicine; PCP Family Medicine; Visit Provider Hospitalist
DX: J44.1 Chronic obstructive pulmonary disease with (acute) exacerbation (principal); J96.11 Chronic respiratory failure with hypoxia; F11.20 Opioid dependence, uncomplicated; E46 Unspecified protein-calorie malnutrition; C34.12 Malignant neoplasm of upper lobe, left bronchus or lung; E11.9 Type 2 diabetes mellitus without complications; I10 Essential (primary) hypertension; G89.29 Other chronic pain; F41.9 Anxiety disorder, unspecified; D50.9 Iron deficiency anemia, unspecified; R13.10 Dysphagia, unspecified; Z93.2 Ileostomy status; Z87.891 Personal history of nicotine dependence
CPT/HCPCS: 36592; 71045; 71275; 74176; 80048; 80053; 81001; 83880; 85025; 85379; 87070; 87205; 87804; 94002; 94003; 94640; 94667; 94668; 97110; 97150; 97162; 97165; 97530; 97802; 99283; J7030; Q9967; A4216; G0424

== ENCOUNTER 2017-10-13 13:00 | Inpatient (IN) | payer MEDICARE, SELFPAY ==
--- NOTE | 2017-10-13 13:00 | DT_ITS ---
This patient was seen during an EMR downtime October 23, 2017 - October 30, 2017. This patient may have a combination of paper and electronic documentation or all paper documentation. All documentation is viewable within the e-chart portion of [facility] for each patient visit.
[2017-10-13 13:31] VITALS: BP 162/79; PULSE 88; RESP 16; TEMP 36.9; O2SAT 92
--- NOTE | 2017-10-13 13:51 | NURSING ---
Pt arrived from [facility] via bed at 1300
[2017-10-13 13:57] VITALS: BMI 25.7
[2017-10-13 13:59] VITALS: BMI 25.7
--- NOTE | 2017-10-13 14:22 | NURSING ---
PT WILL BRING IN TRILOGY INHALER FROM HOME FOR USE HERE, THEN WILL SEND PHARMACY.
[2017-10-13] MEDS: oxyCODONE 5 MG Tablet 10 MG PO ×2 (14:33→20:09)
[2017-10-13 15:58] VITALS: BP 146/93; PULSE 72; RESP 18; TEMP 36.8; O2SAT 96
--- NOTE | 2017-10-13 16:16 | PCM.HP.STD ---
Problem List (1) Shortness of breath Status: Acute (2) Back pain Status: Acute (3) Short gut syndrome Status: Chronic (4) Opioid dependence Status: Chronic (5) Tobacco abuse Status: Chronic (6) Diabetes mellitus Status: Chronic (7) Lung mass Status: Acute (8) Iron deficiency anemia Status: Chronic (9) Protein malnutrition Status: Chronic (10) Anxiety Status: Chronic (11) Dysphagia Status: Chronic (12) COPD (chronic obstructive pulmonary disease) Status: Chronic History of Present Illness Date of Admission: 10/13/17 Chief Complaint: Here for rehabilitation, strengthening, prior to discharge home with family. The patient is a 61 year old Male with below past medical history presented to [facility] Emergency Department 10/08/2017 with shortness of breath, back pain. 10/08/2017 CT abdomen/pelvis shows colostomy, left lower quadrant ileostomy. 10/08/2017 Chest X-ray Left pulmonary nodules, Chronic obstructive pulmonary disease. Difficulty breathing x 24 hours. Left sided back pain, dry cough. WBC 10.2, Hemoglobin 11, Hematocrit 37, Platelet 198. BMP okay. EKG normal sinus rhythm, rate 85. Duoneb, Reglan, Benadryl,Toradol given. Severe respiratory distress requiring BIPAP. Solu-Medrol given. 10/08/2017 Admit to Hospital. Steroids, aerosols, Azithromycin for COPD exacerbation. Cultures pending. 10/09/2017 CTA chest negative pulmonary embolism, Left upper Lobe spiculated mass consistent with lung cancer. 10/09/2017 Dr. Simons recommended stopping antibiotics, continue prednisone 10MG daily. Palliative care for chronic pain. CT guided biopsy of left upper lobe mass offered, Patient declined due to stage 4 COPD. Anxiety makes shortness of breath worse. Ativan started for anxiety. 10/13/2017 Admit to TCU for rehabilitation, strengthening, prior to discharge home with family. Past Medical History Past Medical History (Chronic Problems): Chronic Problems (Last Reviewed 08/16/17 @ 18:42 by ABBE Jean) Chronic pain (Chronic) Short gut syndrome (Chronic) Opioid dependence (Chronic) Tobacco abuse (Chronic) Diabetes mellitus (Chronic) Stage 4 very severe COPD by GOLD classification (Chronic) Tobacco dependence in remission (Chronic) Iron deficiency anemia (Chronic) Chronic respiratory failure with hypoxia (Chronic) Protein malnutrition (Chronic) Anxiety (Chronic) Dysphagia (Chronic) Diabetes type 2, controlled (Chronic) Narcotic dependence (Chronic) History of total colectomy (Chronic) Ileostomy present (Chronic) COPD (chronic obstructive pulmonary disease) (Chronic) Ulcerative colitis (Chronic) sp colectomy 1989; sp ileostomy Allergies sulfamethoxazole [From Bactrim] Allergy (Verified 10/08/17 18:28) Rash trimethoprim [From Bactrim] Allergy (Verified 10/08/17 18:28) Rash Home Medications: Ambulatory Orders Medication Instructions Recorded Albuterol Inhaler [Ventolin Hfa] 2 puff INHALATION Q4H PRN PRN 01/25/17 Cyanocobalamin [Vitamin B12] 1,000 mcg SC Q30D 01/25/17 Ergocalciferol [Vitamin D] 50,000 unit PO MO 01/25/17 Ferrous Sulfate 325 mg PO DAILY@0800 01/25/17 Folic Acid 1 mg PO DAILY@0800 01/25/17 Naproxen 1 tab PO BID PRN 04/25/17 Albuterol Aerosols [Ventolin 2.5 mg INHALATION Q2H PRN PRN #1 04/27/17 Aerosols] box Guaifenesin/Dextromethorphan 20 ml PO Q4H PRN 10/08/17 [Guaifenesin Dm Syrup] Lorazepam [Ativan] 0.5 mg PO Q4H PRN 10/08/17 Fluticasone 0.05% [Flonase Nasal 2 spray INTRANASAL QDAY 10/13/17 [place]] Fluticasone/Umeclidin/Vilanter 1 inh INHALATION QDAY 10/13/17 [Trelegy Ellipta 100-62.5-25] Methadone HCl [Methadone Oral 0.5 ml PO DAILY MDD pain 10/13/17 Concentrate] Oxycodone [Oxyfast] 10 mg PO Q6H PRN #10 ml 10/13/17 Prednisone See Taper PO QDAY 10/13/17 morphine solution (IR) [Roxanol 10 mg PO Q4H PRN PRN #10 ml 10/13/17 (IR oral solution)] Surgical History: cholecystectomy, colectomy - 1989 with ileostomy, herniorrhaphy, - - recent ileostomy revision, mulitple bowel surgery with removal of some colon Psychiatric History: Anxiety, Depression Lives: With Family Smoking Status: Former smoker Tobacco Use: Non-smoker Alcohol: None Drugs: None - *Family History Paternal History Items: Heart Disease Maternal History Items: COPD, Hypertension Review of Systems Constitutional: Denies: Chills, Fever, Weight Change HEENT: Denies: Head Aches, Sinus Congestion, Sinus Drainage Cardiovascular: Denies: Chest Pain, Palpitations Respiratory: Reports: Shortness of Breath. Denies: Cough, Shortness of breath at rest, Sputum production Gastrointestinal: Denies: Abdominal Pain, Nausea, Vomiting Genitourinary: Denies: Dysuria Musculoskeletal: Denies: Joint Pain, Joint Tenderness Skin: Denies: Rash, Wounds Neurological: Denies: Numbness, Tingling, Focal weakness Psychiatric: Denies: Anxiety, Depression, Homicidal Ideations, Suicidal Ideations Hematologic/ Lymphatic: Denies: Easy Bruising, Easy Bleeding VTE Information - Inpt Only VTE Present on Admission: No VTE Mechan Device Prophylaxis: Knee High TAMIE Hose VTE Pharm Prophylaxis ordered?: Yes Patient Problems: Active and Suspected Problems (Last Reviewed 08/16/17 @ 18:42 by Erin Ortiz NP-C) Shortness of breath (Acute) Back pain (Acute) - Physical Exam General: Alert, Oriented x3, Cooperative HEENT: Atraumatic, PERRLA, EOMI, Normocephalic Neck: Supple, No JVD, Negative Carotid Bruits Lungs: Clear to auscultation, Normal air movement Cardiovascular: Regular rate, No murmurs Abdomen: Bowel Sounds Present, Soft, Non Tender Extremities: No edema, Capillary Refill Less than 3 Seconds Skin: No rashes, No breakdown Musculoskeletal: No Tenderness to Palpation of Joints or Extremities Neurological: Cranial nerves II-XII grossly intact Psych/Mental Status: Normal Affect, Appropriate Vital Signs Temp Pulse Resp BP Pulse Ox 98.3 F 72 18 146/93 H 96 10/13/17 15:58 10/13/17 15:58 10/13/17 15:58 10/13/17 15:58 10/13/17 15:58 Oxygen Flow Rate (L/min) 2 Oxygen Delivery Method Nasal Cannula Weight: 81.35 kg Body Mass Index (BMI) 25.7 Finger Stick Blood Glucose 79 Intake and Output for Last 24 Hours 10/11/17 10/12/17 10/13/17 23:59 23:59 23:59 Output Total 250 / 250 Balance -250 / -250 Assessment/Plan Active and Suspected Problems (Last Reviewed 08/16/17 @ 18:42 by Erin Ortiz NP-C) Shortness of breath (Acute) Back pain (Acute) 61 year old male with below past medical history significant for stage 4 chronic obstructive pulmonary disease, hospitalized for shortness of breath secondaryto COPD exacerbation, complicated by left upper lobe mass, patient declined evaluation, admitted to TCU with debility, here for rehabilitation, strengthening, prior to discharge home with family. Debility - PT/OT. Pain - Tylenol 1000MG Q8H PRN mild pain, Naproxen 250MG BID PRN moderate pain, Oxycodone 10MG Q6H PRN severe pain, Methadone 5MG daily. Bowel - Miralax 17GM daily, Senna/colace 1 tablet BID, Dulcolax 10MG PO daily PRN. Pneumonia vaccination - Administer Prevnar 13 and/or Pneumovax 23 as necessary. DVT prophylaxis - Lovenox 40MG SC daily. COPD - Albuterol 2.5MG Q2H PRN shortness of breath, Morphine 10MG Q4H PRN shortness of breath, Trelegy 1 inhalation daily (Or pharmacy equivalent), Prednisone taper. Vitamin B12 deficiency - B12 1000MCG SC Qmonth. Vitamin D deficiency - D2 50,000 units per week. Iron deficiency anemia - Ferrous sulfate 325MG daily. Allergic Rhinitis - Flonase 2 sprays daily Folate deficiency - Folic acid 1MG daily. Cough - Robitussin DM 20ML Q4H PRN. Anxiety - Ativan 0.5MG Q6H PRN. ELI spiculated mass - CT guided lung biopsy if resident changes his mind about evaluation.
--- NOTE | 2017-10-13 16:25 | HP.PCM_ITS ---
Problem List (1) Shortness of breath Status: Acute (2) Back pain Status: Acute (3) Short gut syndrome Status: Chronic (4) Opioid dependence Status: Chronic (5) Tobacco abuse Status: Chronic (6) Diabetes mellitus Status: Chronic (7) Lung mass Status: Acute (8) Iron deficiency anemia Status: Chronic (9) Protein malnutrition Status: Chronic (10) Anxiety Status: Chronic (11) Dysphagia Status: Chronic (12) COPD (chronic obstructive pulmonary disease) Status: Chronic History of Present Illness Date of Admission: 10/13/17 Chief Complaint: Here for rehabilitation, strengthening, prior to discharge home with family. The patient is a 61 year old Male with below past medical history presented to [facility] Emergency Department 10/08/2017 with shortness of breath, back pain. 10/08/2017 CT abdomen/pelvis shows colostomy, left lower quadrant ileostomy. 10/08/2017 Chest X-ray Left pulmonary nodules, Chronic obstructive pulmonary disease. Difficulty breathing x 24 hours. Left sided back pain, dry cough. WBC 10.2, Hemoglobin 11, Hematocrit 37, Platelet 198. BMP okay. EKG normal sinus rhythm, rate 85. Duoneb, Reglan, Benadryl,Toradol given. Severe respiratory distress requiring BIPAP. Solu-Medrol given. 10/08/2017 Admit to Hospital. Steroids, aerosols, Azithromycin for COPD exacerbation. Cultures pending. 10/09/2017 CTA chest negative pulmonary embolism, Left upper Lobe spiculated mass consistent with lung cancer. 10/09/2017 Dr. Simons recommended stopping antibiotics, continue prednisone 10MG daily. Palliative care for chronic pain. CT guided biopsy of left upper lobe mass offered, Patient declined due to stage 4 COPD. Anxiety makes shortness of breath worse. Ativan started for anxiety. 10/13/2017 Admit to TCU for rehabilitation, strengthening, prior to discharge home with family. Past Medical History Past Medical History (Chronic Problems): Chronic Problems (Last Reviewed 08/16/17 @ 18:42 by ABBE Jean) Chronic pain (Chronic) Short gut syndrome (Chronic) Opioid dependence (Chronic) Tobacco abuse (Chronic) Diabetes mellitus (Chronic) Stage 4 very severe COPD by GOLD classification (Chronic) Tobacco dependence in remission (Chronic) Iron deficiency anemia (Chronic) Chronic respiratory failure with hypoxia (Chronic) Protein malnutrition (Chronic) Anxiety (Chronic) Dysphagia (Chronic) Diabetes type 2, controlled (Chronic) Narcotic dependence (Chronic) History of total colectomy (Chronic) Ileostomy present (Chronic) COPD (chronic obstructive pulmonary disease) (Chronic) Ulcerative colitis (Chronic) sp colectomy 1989; sp ileostomy Allergies sulfamethoxazole [From Bactrim] Allergy (Verified 10/08/17 18:28) Rash trimethoprim [From Bactrim] Allergy (Verified 10/08/17 18:28) Rash Home Medications: Ambulatory Orders Medication Instructions Recorded Albuterol Inhaler [Ventolin Hfa] 2 puff INHALATION Q4H PRN PRN 01/25/17 Cyanocobalamin [Vitamin B12] 1,000 mcg SC Q30D 01/25/17 Ergocalciferol [Vitamin D] 50,000 unit PO MO 01/25/17 Ferrous Sulfate 325 mg PO DAILY@0800 01/25/17 Folic Acid 1 mg PO DAILY@0800 01/25/17 Naproxen 1 tab PO BID PRN 04/25/17 Albuterol Aerosols [Ventolin 2.5 mg INHALATION Q2H PRN PRN #1 04/27/17 Aerosols] box Guaifenesin/Dextromethorphan 20 ml PO Q4H PRN 10/08/17 [Guaifenesin Dm Syrup] Lorazepam [Ativan] 0.5 mg PO Q4H PRN 10/08/17 Fluticasone 0.05% [Flonase Nasal 2 spray INTRANASAL QDAY 10/13/17 [place]] Fluticasone/Umeclidin/Vilanter 1 inh INHALATION QDAY 10/13/17 [Trelegy Ellipta 100-62.5-25] Methadone HCl [Methadone Oral 0.5 ml PO DAILY MDD pain 10/13/17 Concentrate] Oxycodone [Oxyfast] 10 mg PO Q6H PRN #10 ml 10/13/17 Prednisone See Taper PO QDAY 10/13/17 morphine solution (IR) [Roxanol 10 mg PO Q4H PRN PRN #10 ml 10/13/17 (IR oral solution)] Surgical History: cholecystectomy, colectomy - 1989 with ileostomy, herniorrhaphy, - - recent ileostomy revision, mulitple bowel surgery with removal of some colon Psychiatric History: Anxiety, Depression Lives: With Family Smoking Status: Former smoker Tobacco Use: Non-smoker Alcohol: None Drugs: None - *Family History Paternal History Items: Heart Disease Maternal History Items: COPD, Hypertension Review of Systems Constitutional: Denies: Chills, Fever, Weight Change HEENT: Denies: Head Aches, Sinus Congestion, Sinus Drainage Cardiovascular: Denies: Chest Pain, Palpitations Respiratory: Reports: Shortness of Breath. Denies: Cough, Shortness of breath at rest, Sputum production Gastrointestinal: Denies: Abdominal Pain, Nausea, Vomiting Genitourinary: Denies: Dysuria Musculoskeletal: Denies: Joint Pain, Joint Tenderness Skin: Denies: Rash, Wounds Neurological: Denies: Numbness, Tingling, Focal weakness Psychiatric: Denies: Anxiety, Depression, Homicidal Ideations, Suicidal Ideations Hematologic/ Lymphatic: Denies: Easy Bruising, Easy Bleeding VTE Information - Inpt Only VTE Present on Admission: No VTE Mechan Device Prophylaxis: Knee High TAMIE Hose VTE Pharm Prophylaxis ordered?: Yes Patient Problems: Active and Suspected Problems (Last Reviewed 08/16/17 @ 18:42 by Erin Ortiz NP-C) Shortness of breath (Acute) Back pain (Acute) - Physical Exam General: Alert, Oriented x3, Cooperative HEENT: Atraumatic, PERRLA, EOMI, Normocephalic Neck: Supple, No JVD, Negative Carotid Bruits Lungs: Clear to auscultation, Normal air movement Cardiovascular: Regular rate, No murmurs Abdomen: Bowel Sounds Present, Soft, Non Tender Extremities: No edema, Capillary Refill Less than 3 Seconds Skin: No rashes, No breakdown Musculoskeletal: No Tenderness to Palpation of Joints or Extremities Neurological: Cranial nerves II-XII grossly intact Psych/Mental Status: Normal Affect, Appropriate Vital Signs Temp Pulse Resp BP Pulse Ox 98.3 F 72 18 146/93 H 96 10/13/17 15:58 10/13/17 15:58 10/13/17 15:58 10/13/17 15:58 10/13/17 15:58 Oxygen Flow Rate (L/min) 2 Oxygen Delivery Method Nasal Cannula Weight: 81.35 kg Body Mass Index (BMI) 25.7 Finger Stick Blood Glucose 79 Intake and Output for Last 24 Hours 10/11/17 10/12/17 10/13/17 23:59 23:59 23:59 Output Total 250 / 250 Balance -250 / -250 Assessment/Plan Active and Suspected Problems (Last Reviewed 08/16/17 @ 18:42 by Erin Ortiz NP-C) Shortness of breath (Acute) Back pain (Acute) 61 year old male with below past medical history significant for stage 4 chronic obstructive pulmonary disease, hospitalized for shortness of breath secondaryto COPD exacerbation, complicated by left upper lobe mass, patient declined evaluation, admitted to TCU with debility, here for rehabilitation, strengthening, prior to discharge home with family. * Debility - PT/OT. * Pain - Tylenol 1000MG Q8H PRN mild pain, Naproxen 250MG BID PRN moderate pain , Oxycodone 10MG Q6H PRN severe pain, Methadone 5MG daily. * Bowel - Miralax 17GM daily, Senna/colace 1 tablet BID, Dulcolax 10MG PO daily PRN. * Pneumonia vaccination - Administer Prevnar 13 and/or Pneumovax 23 as necessary. * DVT prophylaxis - Lovenox 40MG SC daily. * COPD - Albuterol 2.5MG Q2H PRN shortness of breath, Morphine 10MG Q4H PRN shortness of breath, Trelegy 1 inhalation daily (Or pharmacy equivalent), Prednisone taper. * Vitamin B12 deficiency - B12 1000MCG SC Qmonth. * Vitamin D deficiency - D2 50,000 units per week. * Iron deficiency anemia - Ferrous sulfate 325MG daily. * Allergic Rhinitis - Flonase 2 sprays daily * Folate deficiency - Folic acid 1MG daily. * Cough - Robitussin DM 20ML Q4H PRN. * Anxiety - Ativan 0.5MG Q6H PRN. * ELI spiculated mass - CT guided lung biopsy if resident changes his mind about evaluation.
[2017-10-13] MEDS: morphine (oral solution) 10MG/0.5ML Syringe 10 MG PO ×2 (18:06→23:11)
[2017-10-13] MEDS: LORazepam 1 MG Tablet 0.5 MG PO (20:06)
[2017-10-13 20:26] VITALS: PULSE 76; RESP 18; O2SAT 97
[2017-10-14] MEDS: Enoxaparin 40 MG/0.4 ML Syringe SC (06:54)
[2017-10-14 07:09] LABS: Absolute Lymphocyte Count 1.97 X10^3/ul (0.83-4.51); Absolute Neutrophil Count 7.4 X10^3/uL (2.0-7.7); Basophil# 0.03 X10^3/uL; Basophil% 0.3 % (0-1); Eosinophil# 0.77 X10^3/uL; Eosinophils% 6.6 % (0-5); Hematocrit 36.6 % (40-54); Hemoglobin 11.5 g/dl (13.0-16.5); Lymphocyte # 1.97 X10^3/ul (4.0); Mean Corp Hgb Conc 31.4 g/gl (32-36); Mean Corpuscular Hgb 29.5 pg (27.0-32.0); Mean Corpuscular Volume 93.8 fL (80-94); Mean Platelet Vol. 10.1 fl (6.2-12.0); Monocyte# 1.38 X10^3/uL; Monocyte% 11.9 % (0-10); Neutrophil # 7.37 X10^3/uL (2.7-7.7); Neutrophil % 63.6 % (47-70); Platelet Count 189 K/mm3 (150-450); RBC Distribution Width CV 13.7 % (11.6-14.6); RBC Distribution Width SD 45.2 fl (35.1-43.9); White Blood Count 11.6 K/mm3 (4.4-11.0)
[2017-10-14 07:10] LABS: POSITIVE COUNT NO; POSITIVE DIFFERENTIAL NO; POSITIVE MORPHOLOGY NO
[2017-10-14] MEDS: morphine (oral solution) 10MG/0.5ML Syringe 10 MG PO ×3 (07:36→19:05)
[2017-10-14 07:40] LABS: Anion Gap 4 (5-15); BUN 19 mg/dL (7-18); BUN/Creat Ratio 15.4 RATIO (10-20); Calcium,Total 8.3 mg/dL (8.5-10.1); Chloride 103 mmol/L (98-107); Creatinine, Serum 1.23 mg/dL (0.70-1.30); EST Glomerular Filtration Rate 63 mL/min (>60); Est Glom Filt Rate - Afr Amer 77 mL/min (>60); Estimated Creatinine Clearance 65.12 ml/min; Glucose 73 mg/dL (74-106); Potassium 3.8 mmol/L (3.5-5.1); Sodium Level 140 mmol/L (136-145)
[2017-10-14] MEDS: Albuterol 2.5 MG/3 ML VIAL.NEB. INHALATION ×3 (07:45→20:38)
[2017-10-14 08:57] VITALS: PULSE 81; RESP 18
[2017-10-14] MEDS: Folic Acid 1 MG Tablet PO (09:27)
[2017-10-14] MEDS: oxyCODONE 5 MG Tablet 10 MG PO ×3 (09:28→21:48)
[2017-10-14] MEDS: Ferrous Sulfate 325 MG Tablet PO (09:28)
[2017-10-14] MEDS: predniSONE 10 MG Tablet PO (09:28)
[2017-10-14] MEDS: LORazepam 1 MG Tablet 0.5 MG PO ×2 (12:46→20:27)
[2017-10-14] MEDS: Tuberculin,Purif.prot.deriv. 50 TU/ML Vial 5 ML ID (12:52)
[2017-10-14 13:11] VITALS: PULSE 82; RESP 18
--- NOTE | 2017-10-14 13:33 | NURSING ---
Pt. requesting robitussin DM be changed to regular robitussin, Dr. Menon made aware, NO to d/c robitussin DM and start robitussin 10mL q4H PRN.
[2017-10-14 15:15] VITALS: BP 153/85; PULSE 79; RESP 18; TEMP 36.2; O2SAT 93
[2017-10-14 20:38] VITALS: PULSE 81; RESP 18; O2SAT 97
[2017-10-14 22:48] VITALS: O2SAT 96
[2017-10-15] MEDS: Enoxaparin 40 MG/0.4 ML Syringe SC (06:56)
[2017-10-15] MEDS: oxyCODONE 5 MG Tablet 10 MG PO ×3 (07:53→20:38)
[2017-10-15] MEDS: Ferrous Sulfate 325 MG Tablet PO (07:54)
[2017-10-15] MEDS: predniSONE 10 MG Tablet PO (07:54)
[2017-10-15] MEDS: Folic Acid 1 MG Tablet PO (07:54)
[2017-10-15 08:27] VITALS: O2SAT 95
[2017-10-15] MEDS: morphine (oral solution) 10MG/0.5ML Syringe 10 MG PO ×3 (09:38→23:00)
[2017-10-15] MEDS: Albuterol 2.5 MG/3 ML VIAL.NEB. INHALATION ×3 (10:04→22:10)
[2017-10-15 10:05] VITALS: PULSE 76; RESP 17
[2017-10-15] MEDS: LORazepam 1 MG Tablet 0.5 MG PO ×2 (11:32→21:44)
[2017-10-15 15:14] VITALS: BP 155/89; PULSE 83; RESP 18; TEMP 36.4; O2SAT 93
[2017-10-15 17:01] VITALS: PULSE 81; RESP 17
[2017-10-15 22:10] VITALS: PULSE 72; RESP 18
--- NOTE | 2017-10-15 22:56 | CPS ---
Pt put on his home AVAPS unit after this aerosol tx.
[2017-10-16] MEDS: Enoxaparin 40 MG/0.4 ML Syringe SC (05:10)
[2017-10-16] MEDS: oxyCODONE 5 MG Tablet 10 MG PO ×2 (05:15→19:43)
[2017-10-16] MEDS: predniSONE 10 MG Tablet PO (08:12)
[2017-10-16] MEDS: Folic Acid 1 MG Tablet PO (08:12)
[2017-10-16] MEDS: Ferrous Sulfate 325 MG Tablet PO (08:12)
[2017-10-16] MEDS: morphine (oral solution) 10MG/0.5ML Syringe 10 MG PO ×2 (08:13→17:03)
[2017-10-16 08:41] VITALS: PULSE 99; RESP 18; O2SAT 95
[2017-10-16] MEDS: Albuterol 2.5 MG/3 ML VIAL.NEB. INHALATION ×2 (08:41→17:15)
--- NOTE | 2017-10-16 10:01 | RAD_ITS ---
STUDY: X-RAY CHEST REASON FOR EXAM: Male, 61 years old. Left-sided pain with inspiration. TECHNIQUE: PA and lateral views of the chest. COMPARISON: CTA of the chest, October 09, 2017. Chest, October 08, 2017. FINDINGS: Again seen is a right jugular central venous catheter with its tip in the distal superior vena cava. The lungs are hyperexpanded. There are small bilateral pleural effusions. Again seen is stranding and scarring in the left upper lobe consistent with the spiculated nodular densities seen on CT. There is a wedgelike area of density in the posterior right lung base which may be a new infiltrate, but may be related to the Bochdalek's hernia noted on CT. Normal size heart. Normal mediastinum and susan. Normal visualized pulmonary arteries. Normal visualized aortic arch and descending thoracic aorta. There are diffuse degenerative changes of the visualized thoracic spine. Normal visualized ribs, clavicles, and shoulders. There is no demonstrated abnormality of the visualized soft tissue structures of the upper abdomen. RAD/Chest PA and Lateral IMPRESSION: 1. Emphysematous changes lungs. 2. Question new bilateral pleural effusions. 3. Nodular densities in the left lung apex. 4. Density at the right lung base. Infiltrate versus known Bochdalek's hernia. 5. Right jugular central venous catheter. Electronically Signed: Joel Stoner DO at 11:19 EDT Tel [phone], Service support ,
--- NOTE | 2017-10-16 10:06 | NURSING ---
PAtient c/o left rib pain, radiating to back, worse with inspiration. Dr. Menon made aware, NO for CXR, toradol 60mg IM and norflex 60mg IM.
[2017-10-16] MEDS: Ketorolac 60 MG/2 ML Vial IM (12:24)
[2017-10-16] MEDS: Orphenadrine 60 MG/2 ML Ampul IM (12:24)
--- NOTE | 2017-10-16 13:03 | NURSING ---
Chest xray reviewed with ROSENDO Kearney.
[2017-10-16 15:34] VITALS: BP 132/83; PULSE 75; RESP 18; TEMP 36.6; O2SAT 95
[2017-10-16 17:15] VITALS: PULSE 88; RESP 20
[2017-10-17] MEDS: Enoxaparin 40 MG/0.4 ML Syringe SC (05:58)
[2017-10-17] MEDS: morphine (oral solution) 10MG/0.5ML Syringe 10 MG PO ×3 (06:11→22:23)
[2017-10-17 06:35] VITALS: PULSE 80; RESP 18; O2SAT 96
[2017-10-17] MEDS: Albuterol 2.5 MG/3 ML VIAL.NEB. INHALATION ×2 (06:35→18:25)
[2017-10-17] MEDS: Folic Acid 1 MG Tablet PO (07:49)
[2017-10-17] MEDS: Ferrous Sulfate 325 MG Tablet PO (07:49)
[2017-10-17] MEDS: predniSONE 10 MG Tablet PO (07:49)
[2017-10-17] MEDS: guaiFENesin 10 ML UDC (200MG/10ML) PO (09:09)
--- NOTE | 2017-10-17 09:31 | NURSING ---
OXYIR CHANGED TO 5/10MG PRN PER PT REQUEST. PT WANTED OPTION OF 5MG INSTEAD OF JUST 10MG PRN. DR PÉREZ AWARE, ORDER ENTERED.
[2017-10-17] MEDS: oxyCODONE 5 MG Tablet PO ×2 (11:51→19:34)
[2017-10-17 15:46] VITALS: BP 141/89; PULSE 77; RESP 18; TEMP 36.7; O2SAT 93
--- NOTE | 2017-10-17 18:05 | NURSING ---
DR PÉREZ UPDATED ON PT C/O PAIN ALONG DIAPHRAGM OFF/ON TODAY. NNO'S CONTINUE TO MONITOR. PT SITTING IN RECLINER CHAIR, REQUESTED ROXANOL BEFORE HIS AEROSAL TX. CPS NOTIFIED.
[2017-10-17 18:25] VITALS: PULSE 71; RESP 16; O2SAT 94
[2017-10-18] MEDS: Ferrous Sulfate 325 MG Tablet PO (07:12)
[2017-10-18] MEDS: Folic Acid 1 MG Tablet PO (07:13)
[2017-10-18] MEDS: predniSONE 10 MG Tablet PO (07:13)
[2017-10-18] MEDS: oxyCODONE 5 MG Tablet PO ×2 (07:16→19:25)
--- NOTE | 2017-10-18 08:09 | NURSING ---
Dr parada notified of pt refusing lovenox injections, new order to dc per pt request
--- NOTE | 2017-10-18 09:08 | CASEMGMT ---
Plan of care meeting held. Resident present as well as resident son, Richard. No discharge date set at this time. Resident to discharge home where Richard lives with resident. Resident to continue with further care and treatment on the Transitional Care Unit. Resident with insurance update due on this day, resident aware that continued stay approval is not guaranteed. Support given. Will continue to follow. Aliyah AMBROCIO, LPN PR[employer] DUTY
[2017-10-18] MEDS: LORazepam 1 MG Tablet 0.5 MG PO (12:35)
[2017-10-18] MEDS: morphine (oral solution) 10MG/0.5ML Syringe 10 MG PO ×2 (13:26→22:12)
--- NOTE | 2017-10-18 14:10 | CASEMGMT ---
Insurance Clinical information sent. Pending continued stay approval at this time. Auth#[id number] Aliyah AMBROCIO, MUSIC EDUCATOR
[2017-10-18 14:30] VITALS: PULSE 81; RESP 19
[2017-10-18] MEDS: Albuterol 2.5 MG/3 ML VIAL.NEB. INHALATION ×2 (14:30→22:40)
[2017-10-18 15:25] VITALS: BP 132/81; PULSE 54; RESP 18; TEMP 36.4; O2SAT 93
--- NOTE | 2017-10-18 18:26 | NURSING ---
pt continues to c/o diaphragm discomfort. Dr parada went in to speak with pt, new orders for ATB's entered.
[2017-10-18] MEDS: Cefdinir 300 MG Capsule PO (18:34)
[2017-10-18] MEDS: Azithromycin 250 MG Tablet 500 MG PO (18:34)
[2017-10-18 22:42] VITALS: PULSE 77; RESP 16
[2017-10-19] MEDS: Azithromycin 250 MG Tablet PO (04:58)
[2017-10-19] MEDS: Cefdinir 300 MG Capsule PO ×2 (04:58→17:04)
--- NOTE | 2017-10-19 07:15 | NURSING ---
This nurse present during ileostomy change by pt. Pt changed appliance without difficulty. Stating he has done it for 30 years and just needs assistance sometimes. Skin around stoma slightly red and pt confirms slight tenderness. Denying any interventions at this time.
[2017-10-19 07:49] VITALS: O2SAT 94
[2017-10-19] MEDS: Folic Acid 1 MG Tablet PO (08:21)
[2017-10-19] MEDS: predniSONE 10 MG Tablet PO (08:21)
[2017-10-19] MEDS: Ferrous Sulfate 325 MG Tablet PO (08:21)
[2017-10-19] MEDS: Naproxen 250 MG Tablet PO (08:27)
[2017-10-19] MEDS: morphine (oral solution) 10MG/0.5ML Syringe 10 MG PO ×2 (09:33→21:00)
[2017-10-19] MEDS: Albuterol 2.5 MG/3 ML VIAL.NEB. INHALATION ×2 (09:38→21:30)
[2017-10-19 09:39] VITALS: PULSE 95; RESP 16; O2SAT 94
[2017-10-19] MEDS: oxyCODONE 5 MG Tablet PO ×2 (10:53→17:04)
--- NOTE | 2017-10-19 11:00 | NURSING ---
Taken to pulmonary appt. STUDENT COUNSELLOR accompanying resident to appointment.
--- NOTE | 2017-10-19 11:01 | NURSING ---
Patient taken to pulmonology appointment by SQUARING MACHINE OPERATOR.
[2017-10-19 16:00] VITALS: BP 121/57; PULSE 86; RESP 18; TEMP 36.7; O2SAT 93
--- NOTE | 2017-10-19 16:48 | CASEMGMT ---
Insurance Continued stay approved with next update due on 10/23/17 Auth#[id number] Aliyah AMBROCIO, CLAUDE
[2017-10-19 21:30] VITALS: PULSE 98; RESP 16
[2017-10-20] MEDS: oxyCODONE 5 MG Tablet PO ×3 (00:58→20:32)
[2017-10-20] MEDS: Cefdinir 300 MG Capsule PO ×2 (05:48→17:36)
[2017-10-20] MEDS: Azithromycin 250 MG Tablet PO (05:48)
[2017-10-20 07:29] VITALS: O2SAT 84
[2017-10-20 07:39] VITALS: O2SAT 94
[2017-10-20] MEDS: Ferrous Sulfate 325 MG Tablet PO (08:01)
[2017-10-20] MEDS: Folic Acid 1 MG Tablet PO (08:01)
[2017-10-20] MEDS: predniSONE 10 MG Tablet PO (08:01)
[2017-10-20] MEDS: morphine (oral solution) 10MG/0.5ML Syringe 10 MG PO (11:00)
[2017-10-20] MEDS: Naproxen 250 MG Tablet PO (11:18)
[2017-10-20 11:41] VITALS: PULSE 90; RESP 16
--- NOTE | 2017-10-20 13:32 | CASEMGMT ---
Brief interview for mental status (BIMS) and resident mood interview (PHQ-9) completed on this day. BIMS score 13/15. PHQ-9 score 11/15.
[2017-10-20 16:00] VITALS: BP 103/57; PULSE 79; RESP 18; TEMP 36.3; O2SAT 94
[2017-10-21] MEDS: Azithromycin 250 MG Tablet PO (06:51)
[2017-10-21] MEDS: Cefdinir 300 MG Capsule PO ×2 (06:51→18:34)
[2017-10-21 07:10] LABS: Absolute Lymphocyte Count 2.77 X10^3/ul (0.83-4.51); Absolute Neutrophil Count 11.2 X10^3/uL (2.0-7.7); Basophil# 0.03 X10^3/uL; Basophil% 0.2 % (0-1); Eosinophil# 0.37 X10^3/uL; Eosinophils% 2.3 % (0-5); Hematocrit 42.7 % (40-54); Hemoglobin 13.5 g/dl (13.0-16.5); Lymphocyte # 2.77 X10^3/ul (4.0); Lymphocyte % 17.3 % (19-41); Mean Corp Hgb Conc 31.6 g/gl (32-36); Mean Corpuscular Hgb 28.9 pg (27.0-32.0); Mean Corpuscular Volume 91.4 fL (80-94); Mean Platelet Vol. 9.7 fl (6.2-12.0); Monocyte# 1.59 X10^3/uL; Monocyte% 9.9 % (0-10); Neutrophil # 11.18 X10^3/uL (2.7-7.7); Neutrophil % 69.7 % (47-70); Platelet Count 234 K/mm3 (150-450); RBC Distribution Width CV 14.5 % (11.6-14.6); Red Blood Count 4.67 M/mm3 (4.6-6.2)
[2017-10-21 07:11] LABS: Differential Indicated SCAN CRITERIA MET; POSITIVE COUNT NO; POSITIVE DIFFERENTIAL YES; POSITIVE MORPHOLOGY NO
[2017-10-21 07:24] LABS: Anion Gap 5 (5-15); BUN 39 mg/dL (7-18); BUN/Creat Ratio 24.1 RATIO (10-20); Calcium,Total 8.7 mg/dL (8.5-10.1); Chloride 93 mmol/L (98-107); Creatinine, Serum 1.62 mg/dL (0.70-1.30); EST Glomerular Filtration Rate 46 mL/min (>60); Est Glom Filt Rate - Afr Amer 56 mL/min (>60); Estimated Creatinine Clearance 49.44 ml/min; Glucose 75 mg/dL (74-106); Potassium 3.2 mmol/L (3.5-5.1); Sodium Level 138 mmol/L (136-145)
[2017-10-21 08:04] LABS: Differential Comment SCANNED
[2017-10-21] MEDS: Folic Acid 1 MG Tablet PO (08:49)
[2017-10-21] MEDS: Ferrous Sulfate 325 MG Tablet PO (08:49)
[2017-10-21] MEDS: predniSONE 10 MG Tablet PO (08:49)
[2017-10-21] MEDS: oxyCODONE 5 MG Tablet PO ×3 (08:52→22:59)
[2017-10-21] MEDS: Tuberculin,Purif.prot.deriv. 50 TU/ML Vial 5 ML ID (11:23)
--- NOTE | 2017-10-21 11:47 | NURSING ---
JULIANA BUCKNER NP REVIEWED LABS, NEW ORDER FOR KDUR NOW AND DAILY AND RECHECK BMP ON MONDAY
--- NOTE | 2017-10-21 13:18 | NURSING ---
pt mentioned he went to [facility] the other day and he was measured for a chest vest for home. pt wanting it started here if possible. Eldon abad NP notified, new order received. pt updated.
[2017-10-21 15:48] VITALS: O2SAT 93
[2017-10-21 16:00] VITALS: BP 138/87; PULSE 89; RESP 18; TEMP 35.8; O2SAT 93
[2017-10-21] MEDS: morphine (oral solution) 10MG/0.5ML Syringe 10 MG PO (18:34)
[2017-10-21 18:56] VITALS: PULSE 90; RESP 18
[2017-10-21] MEDS: Ipratropium/Albuterol Sulfate 3 ML AMPUL.NEB INHALATION (18:56)
--- NOTE | 2017-10-21 20:35 | NURSING ---
Ileostomy appliance changed @ this time. Patient performed care independently, this RN supervised.
[2017-10-22] MEDS: Azithromycin 250 MG Tablet PO (05:58)
[2017-10-22] MEDS: Cefdinir 300 MG Capsule PO ×2 (05:58→17:31)
[2017-10-22] MEDS: oxyCODONE 5 MG Tablet PO ×3 (06:51→20:32)
[2017-10-22 07:11] VITALS: PULSE 85; RESP 18; O2SAT 96
[2017-10-22] MEDS: Ipratropium/Albuterol Sulfate 3 ML AMPUL.NEB INHALATION ×2 (07:11→20:00)
[2017-10-22] MEDS: Ferrous Sulfate 325 MG Tablet PO (07:39)
[2017-10-22] MEDS: Folic Acid 1 MG Tablet PO (07:39)
[2017-10-22] MEDS: predniSONE 10 MG Tablet PO (07:40)
[2017-10-22 16:00] VITALS: BP 138/80; PULSE 50; RESP 18; TEMP 36.3; O2SAT 94
[2017-10-22] MEDS: morphine (oral solution) 10MG/0.5ML Syringe 10 MG PO (18:42)
[2017-10-22 20:00] VITALS: PULSE 86; RESP 18
--- NOTE | 2017-10-26 12:57 | MDS.RN ---
Information for the mds was obtained from review of the clinical record, interview of resident, staff, and direct observation of resident's care.
--- NOTE | 2017-10-27 01:25 | PCM.PN.RX ---
<AdiacristanasRyder D - Last Filed: 10/27/17 01:25> Progress Note - Pharmacy Subjective: TCU Admission Objective: Allergies sulfamethoxazole [From Bactrim] Allergy (Verified 10/19/17 08:18) Rash trimethoprim [From Bactrim] Allergy (Verified 10/19/17 08:18) Rash Current Medications Generic Name Dose Route Start Last Admin Trade Name Freq PRN Reason Stop Dose Admin Acetaminophen 1,000 mg 10/13/17 16:49 Tylenol PO Q8H PRN PRN MILD PAIN (1-3/10) Albuterol Sulfate 2.5 mg 10/13/17 13:55 10/19/17 21:30 Ventolin Aerosols INHALATION 2.5 mg Q2H PRN PRN Administration SHORTNESS OF BREATH, wheezing Albuterol/Ipratropium 3 ml 10/23/17 06:00 10/22/17 20:00 Duoneb INHALATION 3 ml BID.RT [facility] Administration Bisacodyl 10 mg 10/13/17 16:50 Dulcolax PO DAILY PRN Constipation Cyanocobalamin 1,000 mcg 11/08/17 06:00 Vitamin B12 SC Q30D [facility] Ergocalciferol 50,000 unit 10/16/17 06:00 10/16/17 05:10 Vitamin D PO 50,000 unit Q7D [facility] Administration Ferrous Sulfate 325 mg 10/14/17 08:00 10/22/17 07:39 Ferrous Sulfate PO 325 mg DAILY@0800 [facility] Administration Fluticasone Propionate 2 spray 10/14/17 06:00 10/22/17 05:58 Flonase Nasal [place] NASAL Not Given DAILY [facility] Folic Acid 1 mg 10/14/17 08:00 10/22/17 07:39 Folic Acid PO 1 mg DAILY@0800 [facility] Administration Guaifenesin 10 ml 10/14/17 13:33 10/17/17 09:09 Robitussin PO 10 ml Q4H PRN PRN Administration COUGH Lorazepam 0.5 mg 10/13/17 14:06 10/18/17 12:35 Ativan PO 0.5 mg Q6H PRN Administration ANXIETY Methadone HCl 5 mg 10/14/17 06:00 10/22/17 05:57 PO 5 mg DAILY [facility] Administration Morphine Sulfate 10 mg 10/13/17 13:55 10/22/17 18:42 Roxanol (Ir Oral Solution) PO 10 mg Q4H PRN PRN Administration SOB &/OR WHEEZING Naproxen 250 mg 10/13/17 16:42 10/20/17 11:18 Naprosyn PO 250 mg BID PRN Administration MODERATE PAIN (4-5/10) Non-Formulary Medication 1 inh 10/13/17 14:00 10/22/17 13:47 Fluticasone/Umeclidin/Vilanter [Trelegy Ellipta 100-62.5-25] INHALATION 1 inh DAILY@1400 [facility] Administration Nutritional Formula (Lactose Free) 120 ml 10/18/17 14:00 10/22/17 19:43 Ensure Enlive PO 120 ml 0900,1400,2200 [facility] Administration Oxycodone HCl 5 - 10 mg 10/17/17 09:29 10/22/17 20:32 Oxyir PO 5 mg Q6H PRN Administration SEVERE PAIN (6-10/10) Polyethylene Glycol 17 gm 10/15/17 17:40 Miralax PO DAILY PRN Constipation Potassium Chloride 20 meq 10/22/17 08:00 10/22/17 07:39 K-Dur PO 20 meq DAILYCM [facility] Administration Senna/Docusate Sodium 1 tablet 10/15/17 17:36 Senokot-S, Darlene-Colace PO BID PRN Constipation Sodium Chloride 10 - 40 ml 10/15/17 08:19 10/22/17 06:02 IV 20 ml UD PRN Administration MULTILUMEN/HICMAN CATH FLUSH Problem List (Last Reviewed 10/19/17 @ 11:40 by Erin Ortiz NP-C) Shortness of breath (Acute) Back pain (Acute) Short gut syndrome (Chronic) Opioid dependence (Chronic) Tobacco abuse (Chronic) Diabetes mellitus (Chronic) Vital Signs Temp Pulse Resp BP Pulse Ox 97.4 F L 86 18 138/80 H 94 10/22/17 16:00 10/22/17 20:00 10/22/17 20:00 10/22/17 16:00 10/22/17 16:00 Oxygen Flow Rate (L/min) 2 Oxygen Delivery Method Room Air Weight: 74.843 kg Body Mass Index (BMI) 25.7 Finger Stick Blood Glucose 79 Sodium 138 mmol/L (136-145) 10/21/17 06:45 Potassium 3.2 mmol/L (3.5-5.1) L 10/21/17 06:45 Chloride 93 mmol/L (98-107) L 10/21/17 06:45 Carbon Dioxide 40.0 mmol/L (21.0-32.0) H 10/21/17 06:45 Anion Gap 5 (5-15) 10/21/17 06:45 BUN 39 mg/dL (7-18) H 10/21/17 06:45 Creatinine 1.62 mg/dL (0.70-1.30) H 10/21/17 06:45 Est GFR (MDRD) Af Amer 56 mL/min (>60) L 10/21/17 06:45 Est GFR (MDRD) Non-Af 46 mL/min (>60) L 10/21/17 06:45 BUN/Creatinine Ratio 24.1 RATIO (10-20) H 10/21/17 06:45 Glucose 75 mg/dL (74-106) 10/21/17 06:45 Assessment/Plan: 1) Pain APAP for mild pain, naproxen for moderate pain, oxycodone for severe pain, morphine for palliative care, methadone. Continue to monitor daily pain scores, prn medication use. * 2) COPD Trelegy inhaler, Duoneb aerosols scheduled, guaifenesin prn, albuterol aerosols prn. Please discontinue the Duoneb aerosols for double duplication with the Trelegy inhaler. 3) Nutrition B12, folic acid, Fe, D, Ensure, KCl. Continue to monitor electrolytes. Psychotropic Medications: 4) Anxiety Lorazepam prn. Continue to monitor prn medication use, for anxiety. Unnecessary Medications: None Bowel Regimen: 5) Senna/s, PEG, prn bisacodyl. Continue to monitor prn medication use, daily pain scores. Date of Note:: 10/27/17 - Provider Comments Provider responsibility: Provider responsible to enter orders to implement recommendations <Calvin Menon Chi - Last Filed: 10/30/17 18:21> Progress Note - Pharmacy Subjective: [] Objective: Allergies sulfamethoxazole [From Bactrim] Allergy (Verified 10/19/17 08:18) Rash trimethoprim [From Bactrim] Allergy (Verified 10/19/17 08:18) Rash Vital Signs Temp Pulse Resp BP Pulse Ox 97.4 F L 86 18 138/80 H 94 10/22/17 16:00 10/22/17 20:00 10/22/17 20:00 10/22/17 16:00 10/22/17 16:00 Oxygen Flow Rate (L/min) 2 Oxygen Delivery Method Room Air Weight: 74.843 kg Body Mass Index (BMI) 25.7 Finger Stick Blood Glucose 79 Sodium 129 mmol/L (136-145) L 10/24/17 08:00 Potassium 3.1 mmol/L (3.5-5.1) L 10/24/17 08:00 Chloride 82 mmol/L (98-107) L 10/24/17 08:00 Carbon Dioxide 37.0 mmol/L (21.0-32.0) H 10/24/17 08:00 Anion Gap 10 (5-15) 10/24/17 08:00 BUN 41 mg/dL (7-18) H 10/24/17 08:00 Creatinine 1.96 mg/dL (0.70-1.30) H 10/24/17 08:00 Est GFR (MDRD) Af Amer 45 mL/min (>60) L 10/24/17 08:00 Est GFR (MDRD) Non-Af 37 mL/min (>60) L 10/24/17 08:00 BUN/Creatinine Ratio 20.9 RATIO (10-20) H 10/24/17 08:00 Glucose 126 mg/dL (74-106) H 10/24/17 08:00 Assessment/Plan: Psychotropic Medications: Unnecessary Medications: Bowel Regimen: - Provider Comments Provider responsibility: Provider responsible to enter orders to implement recommendations Provider Comments to Recommendations by Pharmacy: Agree
--- NOTE | 2017-10-27 01:32 | PHA.CONS_ITS ---
<AdiacristanasRyder D - Last Filed: 10/27/17 01:25> Progress Note - Pharmacy Subjective: TCU Admission Objective: Allergies sulfamethoxazole [From Bactrim] Allergy (Verified 10/19/17 08:18) Rash trimethoprim [From Bactrim] Allergy (Verified 10/19/17 08:18) Rash Current Medications Generic Name Dose Route Start Last Admin Trade Name Freq PRN Reason Stop Dose Admin Acetaminophen 1,000 mg 10/13/17 16:49 Tylenol PO Q8H PRN PRN MILD PAIN (1-3/10) Albuterol Sulfate 2.5 mg 10/13/17 13:55 10/19/17 21:30 Ventolin Aerosols INHALATION 2.5 mg Q2H PRN PRN Administration SHORTNESS OF BREATH, wheezing Albuterol/Ipratropium 3 ml 10/23/17 06:00 10/22/17 20:00 Duoneb INHALATION 3 ml BID.RT [facility] Administration Bisacodyl 10 mg 10/13/17 16:50 Dulcolax PO DAILY PRN Constipation Cyanocobalamin 1,000 mcg 11/08/17 06:00 Vitamin B12 SC Q30D [facility] Ergocalciferol 50,000 unit 10/16/17 06:00 10/16/17 05:10 Vitamin D PO 50,000 unit Q7D [facility] Administration Ferrous Sulfate 325 mg 10/14/17 08:00 10/22/17 07:39 Ferrous Sulfate PO 325 mg DAILY@0800 [facility] Administration Fluticasone Propionate 2 spray 10/14/17 06:00 10/22/17 05:58 Flonase Nasal [place] NASAL Not Given DAILY [facility] Folic Acid 1 mg 10/14/17 08:00 10/22/17 07:39 Folic Acid PO 1 mg DAILY@0800 [facility] Administration Guaifenesin 10 ml 10/14/17 13:33 10/17/17 09:09 Robitussin PO 10 ml Q4H PRN PRN Administration COUGH Lorazepam 0.5 mg 10/13/17 14:06 10/18/17 12:35 Ativan PO 0.5 mg Q6H PRN Administration ANXIETY Methadone HCl 5 mg 10/14/17 06:00 10/22/17 05:57 PO 5 mg DAILY [facility] Administration Morphine Sulfate 10 mg 10/13/17 13:55 10/22/17 18:42 Roxanol (Ir Oral Solution) PO 10 mg Q4H PRN PRN Administration SOB &/OR WHEEZING Naproxen 250 mg 10/13/17 16:42 10/20/17 11:18 Naprosyn PO 250 mg BID PRN Administration MODERATE PAIN (4-5/10) Non-Formulary Medication 1 inh 10/13/17 14:00 10/22/17 13:47 Fluticasone/Umeclidin/Vilanter [Trelegy Ellipta 100-62.5-25] INHALATION 1 inh DAILY@1400 [facility] Administration Nutritional Formula (Lactose Free) 120 ml 10/18/17 14:00 10/22/17 19:43 Ensure Enlive PO 120 ml 0900,1400,2200 [facility] Administration Oxycodone HCl 5 - 10 mg 10/17/17 09:29 10/22/17 20:32 Oxyir PO 5 mg Q6H PRN Administration SEVERE PAIN (6-10/10) Polyethylene Glycol 17 gm 10/15/17 17:40 Miralax PO DAILY PRN Constipation Potassium Chloride 20 meq 10/22/17 08:00 10/22/17 07:39 K-Dur PO 20 meq DAILYCM [facility] Administration Senna/Docusate Sodium 1 tablet 10/15/17 17:36 Senokot-S, Darlene-Colace PO BID PRN Constipation Sodium Chloride 10 - 40 ml 10/15/17 08:19 10/22/17 06:02 IV 20 ml UD PRN Administration MULTILUMEN/HICMAN CATH FLUSH Problem List (Last Reviewed 10/19/17 @ 11:40 by Erin Ortiz NP-C) Shortness of breath (Acute) Back pain (Acute) Short gut syndrome (Chronic) Opioid dependence (Chronic) Tobacco abuse (Chronic) Diabetes mellitus (Chronic) Vital Signs Temp Pulse Resp BP Pulse Ox 97.4 F L 86 18 138/80 H 94 10/22/17 16:00 10/22/17 20:00 10/22/17 20:00 10/22/17 16:00 10/22/17 16:00 Oxygen Flow Rate (L/min) 2 Oxygen Delivery Method Room Air Weight: 74.843 kg Body Mass Index (BMI) 25.7 Finger Stick Blood Glucose 79 Sodium 138 mmol/L (136-145) 10/21/17 06:45 Potassium 3.2 mmol/L (3.5-5.1) L 10/21/17 06:45 Chloride 93 mmol/L (98-107) L 10/21/17 06:45 Carbon Dioxide 40.0 mmol/L (21.0-32.0) H 10/21/17 06:45 Anion Gap 5 (5-15) 10/21/17 06:45 BUN 39 mg/dL (7-18) H 10/21/17 06:45 Creatinine 1.62 mg/dL (0.70-1.30) H 10/21/17 06:45 Est GFR (MDRD) Af Amer 56 mL/min (>60) L 10/21/17 06:45 Est GFR (MDRD) Non-Af 46 mL/min (>60) L 10/21/17 06:45 BUN/Creatinine Ratio 24.1 RATIO (10-20) H 10/21/17 06:45 Glucose 75 mg/dL (74-106) 10/21/17 06:45 Assessment/Plan: 1) Pain APAP for mild pain, naproxen for moderate pain, oxycodone for severe pain, morphine for palliative care, methadone. Continue to monitor daily pain scores, prn medication use. * 2) COPD Trelegy inhaler, Duoneb aerosols scheduled, guaifenesin prn, albuterol aerosols prn. Please discontinue the Duoneb aerosols for double duplication with the Trelegy inhaler. 3) Nutrition B12, folic acid, Fe, D, Ensure, KCl. Continue to monitor electrolytes. Psychotropic Medications: 4) Anxiety Lorazepam prn. Continue to monitor prn medication use, for anxiety. Unnecessary Medications: None Bowel Regimen: 5) Senna/s, PEG, prn bisacodyl. Continue to monitor prn medication use, daily pain scores. Date of Note:: 10/27/17 - Provider Comments Provider responsibility: Provider responsible to enter orders to implement recommendations <Calvin Menon Chi - Last Filed: 10/30/17 18:21> Progress Note - Pharmacy Subjective: [] Objective: Allergies sulfamethoxazole [From Bactrim] Allergy (Verified 10/19/17 08:18) Rash trimethoprim [From Bactrim] Allergy (Verified 10/19/17 08:18) Rash Vital Signs Temp Pulse Resp BP Pulse Ox 97.4 F L 86 18 138/80 H 94 10/22/17 16:00 10/22/17 20:00 10/22/17 20:00 10/22/17 16:00 10/22/17 16:00 Oxygen Flow Rate (L/min) 2 Oxygen Delivery Method Room Air Weight: 74.843 kg Body Mass Index (BMI) 25.7 Finger Stick Blood Glucose 79 Sodium 129 mmol/L (136-145) L 10/24/17 08:00 Potassium 3.1 mmol/L (3.5-5.1) L 10/24/17 08:00 Chloride 82 mmol/L (98-107) L 10/24/17 08:00 Carbon Dioxide 37.0 mmol/L (21.0-32.0) H 10/24/17 08:00 Anion Gap 10 (5-15) 10/24/17 08:00 BUN 41 mg/dL (7-18) H 10/24/17 08:00 Creatinine 1.96 mg/dL (0.70-1.30) H 10/24/17 08:00 Est GFR (MDRD) Af Amer 45 mL/min (>60) L 10/24/17 08:00 Est GFR (MDRD) Non-Af 37 mL/min (>60) L 10/24/17 08:00 BUN/Creatinine Ratio 20.9 RATIO (10-20) H 10/24/17 08:00 Glucose 126 mg/dL (74-106) H 10/24/17 08:00 Assessment/Plan: Psychotropic Medications: Unnecessary Medications: Bowel Regimen: - Provider Comments Provider responsibility: Provider responsible to enter orders to implement recommendations Provider Comments to Recommendations by Pharmacy: Agree
[2017-10-28 06:29] LABS: BUN 41 mg/dL (7-18); BUN/Creat Ratio 20.9 RATIO (10-20); Calcium,Total 9.2 mg/dL (8.5-10.1); Creatinine, Serum 1.96 mg/dL (0.70-1.30); EST Glomerular Filtration Rate 37 mL/min (>60); Est Glom Filt Rate - Afr Amer 45 mL/min (>60); Estimated Creatinine Clearance 40.87 ml/min; Glucose 126 mg/dL (74-106); Potassium 3.1 mmol/L (3.5-5.1); Sodium Level 129 mmol/L (136-145)
[2017-10-28 06:30] LABS: Anion Gap 10 (5-15); Chloride 82 mmol/L (98-107)
--- NOTE | 2017-10-31 11:28 | CASEMGMT ---
Insurance Notified insurance of resident discharge on 10/27/17 to home with son and home health services. Auth#[id number] Aliyah AMBROCIO, [employer]
[2017-11-01 10:58] LABS: Pathologist Review Reviewed
--- NOTE | 2017-11-08 08:22 | PCM.DC ---
You will use the following diet at home:: No restrictions, Regular Your food should be the consistency of: Regular Your liquids should be the consistency of: Regular/Thin Discharge Activity: Return to Normal Activity, May Shower, Use Walker Weight Bearing Status: Weight bearing as tolerated Call your doctor if you observe: Fever of 101 or Higher, Inability to urinate, Inability to have a bowel movement, Shortness of breath, Chest pain, Uncontrolled pain Allergies/Adverse Reactions: Allergies sulfamethoxazole [From Bactrim] Allergy (Verified 10/19/17 08:18) Rash trimethoprim [From Bactrim] Allergy (Verified 10/19/17 08:18) Rash Medications to take at Discharge Albuterol Inhaler [Ventolin Hfa] 2 puff INHALATION Q4H PRN PRN 01/25/17 Cyanocobalamin [Vitamin B12] 1,000 mcg SC Q30D 01/25/17 Ergocalciferol [Vitamin D] 50,000 unit PO MO 01/25/17 Ferrous Sulfate 325 mg PO DAILY@0801/25/17 Folic Acid 1 mg PO DAILY@79901/25/17 Naproxen 1 tab PO BID PRN 04/25/17 Albuterol Aerosols [Ventolin Aerosols] 2.5 mg INHALATION Q2H PRN PRN #1 box 04/27/17 Guaifenesin/Dextromethorphan [Guaifenesin Dm Syrup] 20 ml PO Q4H PRN 10/08/17 Lorazepam [Ativan] 0.5 mg PO Q4H PRN 10/08/17 Fluticasone 0.05% [Flonase Nasal [place]] 2 spray INTRANASAL QDAY 10/13/17 Fluticasone/Umeclidin/Vilanter [Trelegy Ellipta 100-62.5-25] 1 inh INHALATION QDAY 10/13/17 Methadone HCl [Methadone Oral Concentrate] 0.5 ml PO DAILY MDD pain 10/13/17 Oxycodone [Oxyfast] 10 mg PO Q6H PRN #10 ml 10/13/17 Prednisone See Taper PO QDAY 10/13/17 morphine solution (IR) [Roxanol (IR oral solution)] 10 mg PO Q4H PRN PRN #10 ml 10/13/17 azithromycin 250 mg tablet 250 mg PO QDAY 10/19/17 cefdinir 300 mg capsule 300 mg PO Q12H 10/19/17 food supplement, lactose-reduced oral liquid 120 ea PO TID ml 10/19/17 Primary Care Physician: Edwin Benton MD [Primary Care Provider] - Please follow up with your Primary Care Physician in: 1 week. Please Follow Up With: pulmonary Proposed Discharge Date: 10/27/17
--- NOTE | 2017-12-08 13:51 | PCM.DC ---
You will use the following diet at home:: No restrictions, Regular Your food should be the consistency of: Regular Your liquids should be the consistency of: Regular/Thin Discharge Activity: Return to Normal Activity, May Shower, Use Walker Weight Bearing Status: Weight bearing as tolerated Call your doctor if you observe: Fever of 101 or Higher, Inability to urinate, Inability to have a bowel movement, Shortness of breath, Chest pain, Uncontrolled pain Allergies/Adverse Reactions: Allergies sulfamethoxazole [From Bactrim] Allergy (Verified 10/19/17 08:18) Rash trimethoprim [From Bactrim] Allergy (Verified 10/19/17 08:18) Rash Medications to take at Discharge Albuterol Inhaler [Ventolin Hfa] 2 puff INHALATION Q4H PRN PRN 01/25/17 Cyanocobalamin [Vitamin B12] 1,000 mcg SC Q30D 01/25/17 Ergocalciferol [Vitamin D] 50,000 unit PO MO 01/25/17 Ferrous Sulfate 325 mg PO DAILY@0801/25/17 Folic Acid 1 mg PO DAILY@79901/25/17 Naproxen 1 tab PO BID PRN 04/25/17 Albuterol Aerosols [Ventolin Aerosols] 2.5 mg INHALATION Q2H PRN PRN #1 box 04/27/17 Guaifenesin/Dextromethorphan [Guaifenesin Dm Syrup] 20 ml PO Q4H PRN 10/08/17 Lorazepam [Ativan] 0.5 mg PO Q4H PRN 10/08/17 Fluticasone 0.05% [Flonase Nasal [place]] 2 spray INTRANASAL QDAY 10/13/17 Fluticasone/Umeclidin/Vilanter [Trelegy Ellipta 100-62.5-25] 1 inh INHALATION QDAY 10/13/17 Methadone HCl [Methadone Oral Concentrate] 0.5 ml PO DAILY MDD pain 10/13/17 Oxycodone [Oxyfast] 10 mg PO Q6H PRN #10 ml 10/13/17 Prednisone See Taper PO QDAY 10/13/17 morphine solution (IR) [Roxanol (IR oral solution)] 10 mg PO Q4H PRN PRN #10 ml 10/13/17 azithromycin 250 mg tablet 250 mg PO QDAY 10/19/17 cefdinir 300 mg capsule 300 mg PO Q12H 10/19/17 food supplement, lactose-reduced oral liquid 120 ea PO TID ml 10/19/17 Primary Care Physician: Edwin Benton MD [Primary Care Provider] - Please follow up with your Primary Care Physician in: 1 week. Test Results: Test results from this visit will be discussed in further detail at your follow-up appointment, if applicable. Please Follow Up With: pulmonary Proposed Discharge Date: 10/27/17
--- NOTE | 2017-12-08 13:51 | PCM.DC.SUM ---
Discharge Date and Diagnosis Date of Admission: 10/13/17 Date of Discharge: 10/27/17 - Secondary Discharge Diagnosis Chronic Problems (Last Reviewed 10/19/17 @ 11:40 by ABBE Jean) Chronic pain (Chronic) Short gut syndrome (Chronic) Opioid dependence (Chronic) Tobacco abuse (Chronic) Diabetes mellitus (Chronic) Stage 4 very severe COPD by GOLD classification (Chronic) Tobacco dependence in remission (Chronic) Iron deficiency anemia (Chronic) Chronic respiratory failure with hypoxia (Chronic) Protein malnutrition (Chronic) Anxiety (Chronic) Dysphagia (Chronic) Diabetes type 2, controlled (Chronic) Narcotic dependence (Chronic) History of total colectomy (Chronic) Ileostomy present (Chronic) COPD (chronic obstructive pulmonary disease) (Chronic) Ulcerative colitis (Chronic) sp colectomy 1989; sp ileostomy Hospital Course and Treatment Operations: None Procedures: None Summary of Care Provided: The patient is a 61 year old Male with below past medical history significant for stage 4 chronic obstructive pulmonary disease, hospitalized for shortness of breath secondaryto COPD exacerbation, complicated by left upper lobe mass, patient declined evaluation, admitted to TCU with debility, here for rehabilitation, strengthening, prior to discharge home with family. Discharge home. Discharge Diet: No Restrictions Discharge Activity: Return to Normal Activity, May Shower, Use Walker Weight Bearing Status: Weight bearing as tolerated Call your doctor if you observe: Fever of 101 or Higher, Inability to urinate, Inability to have a bowel movement, Shortness of breath, Chest pain, Uncontrolled pain Home Medications: Medications to take at Discharge Albuterol Inhaler [Ventolin Hfa] 2 puff INHALATION Q4H PRN PRN 01/25/17 Cyanocobalamin [Vitamin B12] 1,000 mcg SC Q30D 01/25/17 Ergocalciferol [Vitamin D] 50,000 unit PO MO 01/25/17 Ferrous Sulfate 325 mg PO DAILY@79901/25/17 Folic Acid 1 mg PO DAILY@79901/25/17 Naproxen 1 tab PO BID PRN 04/25/17 Albuterol Aerosols [Ventolin Aerosols] 2.5 mg INHALATION Q2H PRN PRN #1 box 04/27/17 Guaifenesin/Dextromethorphan [Guaifenesin Dm Syrup] 20 ml PO Q4H PRN 10/08/17 Lorazepam [Ativan] 0.5 mg PO Q4H PRN 10/08/17 Fluticasone 0.05% [Flonase Nasal [place]] 2 spray INTRANASAL QDAY 10/13/17 Fluticasone/Umeclidin/Vilanter [Trelegy Ellipta 100-62.5-25] 1 inh INHALATION QDAY 10/13/17 Methadone HCl [Methadone Oral Concentrate] 0.5 ml PO DAILY MDD pain 10/13/17 Oxycodone [Oxyfast] 10 mg PO Q6H PRN #10 ml 10/13/17 Prednisone See Taper PO QDAY 10/13/17 morphine solution (IR) [Roxanol (IR oral solution)] 10 mg PO Q4H PRN PRN #10 ml 10/13/17 azithromycin 250 mg tablet 250 mg PO QDAY 10/19/17 cefdinir 300 mg capsule 300 mg PO Q12H 10/19/17 food supplement, lactose-reduced oral liquid 120 ea PO TID ml 10/19/17 Primary Care Physician: Edwin Benton MD [Primary Care Provider] - Please follow up with your Primary Care Physician in: 1 week. Please Follow Up With: pulmonary Disposition: Home Patient Condition:: Stable Medical Necessity - Tobacco Use Smoking Status: Former smoker Tobacco Use: Non-smoker Meaningful Use Info Meaningful Use Diagnoses (Choose all that apply): None applicable
== END 2017-10-27 16:00 | disposition home health service (06) | DRG 948 ==
PROVIDERS: Admitting Provider Family Medicine Geriatric Medicine; Family Provider Family Medicine; PCP Family Medicine; Visit Provider Family Medicine Geriatric Medicine
DX: R53.81 Other malaise (principal); K91.2 Postsurgical malabsorption, not elsewhere classified; J96.11 Chronic respiratory failure with hypoxia; J44.9 Chronic obstructive pulmonary disease, unspecified; E55.9 Vitamin D deficiency, unspecified; D50.9 Iron deficiency anemia, unspecified; F41.9 Anxiety disorder, unspecified; E11.9 Type 2 diabetes mellitus without complications; Z93.2 Ileostomy status; Z87.891 Personal history of nicotine dependence; R91.8 Other nonspecific abnormal finding of lung field
CPT/HCPCS: 36415; 71046; 80048; 85025; 94640; 94667; 94668; 97032; 97110; 97116; 97162; 97165; 97530; 97535; 97802; A4216

== ENCOUNTER → 2017-10-30 11:38 | Outpatient (CLI) | payer MEDICARE, SELFPAY ==
--- NOTE | 2017-10-30 11:38 | DT_ITS ---
This patient was seen during an EMR downtime October 23, 2017 - October 30, 2017. This patient may have a combination of paper and electronic documentation or all paper documentation. All documentation is viewable within the e-chart portion of [employer] for each patient visit.
[2017-10-30 13:17] LABS: Hematocrit 41.9 % (40-54); Hemoglobin 13.5 g/dl (13.0-16.5); Mean Corp Hgb Conc 32.2 g/gl (32-36); Mean Corpuscular Hgb 29.2 pg (27.0-32.0); Mean Corpuscular Volume 90.7 fL (80-94); Mean Platelet Vol. 9.8 fl (6.2-12.0); Platelet Count 216 K/mm3 (150-450); RBC Distribution Width CV 14.2 % (11.6-14.6); RBC Distribution Width SD 47.3 fl (35.1-43.9); Red Blood Count 4.62 M/mm3 (4.6-6.2); Scan Indicated on CBC? Y/N NO; White Blood Count 15.4 K/mm3 (4.4-11.0)
[2017-10-30 13:35] LABS: ALB/GLOB Ratio 0.9 RATIO (0.9-2.4); AST(SGOT) 33 U/L (15-37); Alanine Aminotransfer ALT/SGPT 57 U/L (16-61); Albumin, Serum 3.5 g/dL (3.2-5.0); Alkaline Phosphatase 184 U/L (45-117); Anion Gap 10 (5-15); BUN 26 mg/dL (7-18); BUN/Creat Ratio 18.8 RATIO (10-20); CRP 8.61 mg/L (0.0-3.0); Chloride 92 mmol/L (98-107); Creatinine, Serum 1.38 mg/dL (0.70-1.30); EST Glomerular Filtration Rate 56 mL/min (>60); Est Glom Filt Rate - Afr Amer 67 mL/min (>60); Globulin 3.8 g/dL (2.2-4.2); Glucose 112 mg/dL (74-106); Magnesium 1.8 mg/dL (1.6-2.6); Phosphorus 2.8 mg/dL (2.5-4.9); Potassium 3.1 mmol/L (3.5-5.1); Protein, Total 7.3 g/dL (6.4-8.2); Sodium Level 135 mmol/L (136-145)
== END ==
PROVIDERS: Family Provider Family Medicine; PCP Family Medicine
DX: E87.8 Other disorders of electrolyte and fluid balance, not elsewhere classified (principal); E83.39 Other disorders of phosphorus metabolism; E83.40 Disorders of magnesium metabolism, unspecified; R63.3 Feeding difficulties; K76.9 Liver disease, unspecified; D68.4 Acquired coagulation factor deficiency; R79.82 Elevated C-reactive protein (CRP); Z78.9 Other specified health status; Z91.89 Other specified personal risk factors, not elsewhere classified
CPT/HCPCS: 36592; 80053; 82525; 83735; 84100; 84630; 85027; 86140; A4216